=== PATIENT | female | born 1950 | race Caucasian/White ===

== ENCOUNTER 2020-03-26 01:17 | Emergency (ER) | payer MEDICARE, SELFPAY ==
--- NOTE | ~2020-03-26 | CT_ITS ---
EXAMINATION: CT chest abdomen pelvis w con EXAM DATE: 03/26/2020 02:59 INDICATION: chest wall pain, status post fall down stairs . TECHNIQUE: Spiral CT of the chest, abdomen and pelvis was performed following intravenous injection o f 100 mL Omnipaque 350. Axial, coronal and sagittal images were reviewed. Coronal maximum intensity pixel images of chest reviewed. The dose-length product (DLP) for this examination was 1781.79 mGy- cm. The exposure was tailored according to patient size (auto mA exposure control), and iterative re construction (ASIR) was used as additional dose reduction technique. There is no prior study for com alysia. FINDINGS: CHEST: There are acute left 4th through 9th rib fractures anterolaterally. There is a 4 mm left upper lobe nodule; one-year follow-up chest CT recommended. Linear bibasilar subsegmental atelectasis. The re is mild emphysema. There are no pleural or pericardial effusions. Tracheobronchial tree is paten t. There is no mediastinal, hilar or axillary lymphadenopathy. There is no pneumothorax. Heart normal in size. There is mild to moderate coronary arterial calcification, arterial sclerosis. ABDOMEN PELVIS: There is hepatic steatosis without suspicious focal lesion identified. Spleen, adrena l glands, pancreas are unremarkable. Gallbladder is unremarkable. No biliary obstruction. Portal a nd splenic veins are patent. Kidneys enhance symmetrically. There is no hydronephrosis. Bilateral r enal cysts largest on the right at 4.7 cm. The uterus is anteverted and morphologically normal. Th e bladder is unremarkable. There is no retroperitoneal or pelvic lymphadenopathy. Evidence of fat contusion overlying the left gluteal muscles. There is moderate sigmoid colonic diverticulosis. There is no adjacent inflammatory change to sugges t diverticulitis. The appendix is not positively visualized. There is no pericecal inflammatory boland ge to suggest appendicitis. The stomach and small bowel are unremarkable. There is expected amount of colonic stool. No free intraperitoneal gas. There are no osteoblastic or osteolytic lesions id entified. IMPRESSION: 1. Left 4th-9th acute nondisplaced rib fractures. 2. Moderate sigmoid diverticulosis. 3. Left upper lobe 4 mm nodule; consider one-year follow-up chest CT. 4. Bibasilar subsegmental atelectasis. 5. Mild emphysema. Reviewed, dictated and finalized at location B. TAGE CONSULTANT
--- NOTE | ~2020-03-26 | CT_ITS ---
EXAMINATION: CT brain wo con, CT cervical spine wo con EXAM DATE: 03/26/2020 02:58 INDICATION: Head injury. TECHNIQUE: Spiral CT of the head was performed without contrast. Axial, coronal and sagittal images were reviewed. Spiral CT of the cervical spine was performed without contrast. Axial images were rev iewed. Coronal and sagittal reformatted images were also reviewed. The dose-length product (DLP) fo r this examination was 605.33 (accession [id number]), 470.67 (accession [id number]) mGy-cm. The exposure was tailored according to patient size, and iterative reconstruction (ASIR) was used as additional dose reduction technique. There is no prior study for comparison. FINDINGS: HEAD CT: There is no acute intraparenchymal hemorrhage. No evidence of intraparenchymal brain mass l esion. No evidence of acute infarction. There is mild periventricular and subcortical hypodensity, n onspecific but probably related to small vessel ischemic disease. There is mild prominence of the s ulci and ventricles related to cerebral atrophy. There is intracranial carotid arteriosclerosis. There is no mass effect or midline shift. There is no obstructive hydrocephalus suspected. There are no extra-axial collections. There are no acute calvarial fractures. Patient has had bilateral ocul ar lens surgery. The visualized sinuses and mastoid air cells are well aerated. CERVICAL CT: Mild to moderate cervical spondylosis. There is no evidence of acute cervical fracture. The odontoid process is intact. Pre-dens space is normal. Prevertebral soft tissue is normal. The re are no soft tissue abnormalities identified. There is no disc space widening or traumatic vertebr al body subluxation suspected. A detailed level by level evaluation of spondylosis can be added as addendum if requested. IMPRESSION: 1. No acute intracranial findings or cervical fracture. Reviewed, dictated and finalized at location B. CAMP IMPRESSION: 1. No acute intracranial findings or cervical fracture.
[2020-03-26 01:26] VITALS: BP 172/99; PULSE 101; RESP 16; TEMP 36.4; O2SAT 95
[2020-03-26 02:03] LABS: Basophils Absolute Auto 0.1 K/mm3 (0.0-0.1); Basophils Percent Auto 0.7 % (0.2-1.2); Eosinophils Absolute Auto 0.2 K/mm3 (0-0.3); Eosinophils Percent Auto 1.5 % (0-4.4); Hemoglobin 12.9 g/dL (12.0-15.0); Immature Granulocyte Percent A 0.9 % (0-0.5); Lymphocytes Absolute Auto 2.21 K/mm3 (0.9-3.2); Lymphocytes Percent Auto 19.3 % (18.3-44.2); Mean Corpuscular HGB Conc 31.5 g/dl (32-36); Mean Corpuscular Hemoglobin 27.3 pg (26-34); Mean Corpuscular Volume 86.9 fl (80-100); Mean Platelet Volume 9.1 fl (7.4-10.4); Monocytes Absolute Auto 1.1 K/mm3 (0.1-0.6); Monocytes Percent Auto 9.5 % (2.6-8.5); Neutrophils Absolute Auto 7.8 K/mm3 (1.3-6.7); Neutrophils Percent Auto 68.1 % (45.5-73.1); Platelet Count Result 276 k/mm3 (150-375); Red Blood Count 4.72 M/mm3 (4.2-5.4); Red Cell Distribution Width 14.3 % (11.5-14.5); White Blood Count 11.4 K/mm3 (4.5-10.0)
[2020-03-26 02:15] LABS: Alanine Aminotransferase 28 U/L (4-35); Albumin Level 4.2 g/dL (3.5-5.1); Alkaline Phosphatase 73 U/L (38-126); Anion Gap 10 mmol/L (8-16); Aspartate Amino Transferase 33 U/L (14-36); Bilirubin,Total 0.3 mg/dL (0.2-1.3); Blood Urea Nitrogen 22 mg/dL (7-17); Calcium 9.3 mg/dL (8.4-10.2); Carbon Dioxide 28 mmol/L (22-30); Chloride 100 mmol/L (98-107); Estimated CRCL calculation 68 ml/min; Estimated Glomerular Filt Rate > 60; Glucose 218 mg/dL (65-105); Potassium 3.8 mmol/L (3.4-5.0); Sodium 138 mmol/L (137-145)
--- NOTE | 2020-03-26 02:52 | ED.GENADULT ---
HPI - General Adult General Chief complaint: Fall Stated complaint: fall down 5-6 steps Time Seen by Provider: 03/26/20 01:37 History of Present Illness HPI narrative: Patient is a 69-year-old female who presents to emergency department chief complaint of head injury. The patient reports she fell down some steps and struck her head. The patient is unsure of how long she had loss of consciousness reports that she was confused afterwards and called her son and spoke with him while she was talking with him she slowly regained her normal mental status and now just complains of a headache and feels a little foggy afterwards. Patient states that she has pain in her left anterior and posterior chest wall from where she struck the steps that she fell backwards down the steps. Patient reports she has a knot in the occipital region of her scalp. Related Data Home Medications Medication Instructions Recorded Confirmed metformin 500 mg tablet 500 mg PO BID 02/11/19 02/11/19 fluticasone 100 mcg-salmeterol 50 1 puff INHALATION Q12H 02/14/19 02/14/19 mcg/dose blistr powdr for inhalation cinnamon bark 500 mg capsule 500 mg PO DAILY 02/21/19 fenugreek seed extract 500 mg mg PO 02/21/19 capsule omega-3 fatty acids-fish oil 360 1 cap PO DAILY 02/21/19 mg-1,200 mg capsule Allergies Allergy/AdvReac Type Severity Reaction Status Date / Time aspirin Allergy Unknown unknown Verified 06/03/19 11:03 Penicillins Allergy Unknown unknown Verified 06/03/19 11:03 Sulfa (Sulfonamide Allergy Unknown unknown Verified 06/03/19 11:03 Antibiotics) Review of Systems Review of Systems: Narrative: A 10 system review of systems was completed on the patient and is negative except for what is stated in the HPI. Nursing and ancillary documentation was reviewed. [facility] Past Medical History Medical History Anxiety and depression Arthritis Asthma Diabetes Hypertension Vision loss reading glasses Surgical History Surgical History H/O section H/O toe surgery bilateral hammer toes (2009) Family History Family History Other Carcinoma of colon Cerebrovascular accident Depression Family history of Alzheimer's disease Family history of alcoholism Family history of cardiovascular disease Family history of migraine headaches Social History Social History Smoking status: Never smoker Second hand tobacco smoke exposure: No Alcohol intake: never Substance use: never Additional occupation/education comments: [employer] Gender identity (if verbalized by the patient): Female Spiritual care concerns: No Exam Narrative: Exam Narrative: GENERAL: Well-appearing, well-nourished, and in no acute distress. HEAD: Normocephalic, atraumatic. There is a contusion present in the occipital region of the scalp EYES: PERRLA and EOMI. ENT: Nares clear, no rhinorrhea or epistaxis. Mucous membranes moist. NECK: Supple. CHEST: Clear to auscultation. No respiratory distress. There is tenderness to palpation in the left anterior and posterior chest wall HEART: Regular rate and rhythm. No murmur heard. Normal peripheral pulses. ABDOMEN: Soft, nontender, nondistended, normal active bowel sounds. EXTREMITIES: Normal range of motion. No edema. SKIN: Warm, dry, no rash. NEURO: No focal deficits. Alert and oriented x3. PSYCH: Normal mood and affect. Course Course Emergency Course: Due to the mechanism of injury the patient underwent CT head CT C-spine and CT chest abdomen pelvis. The CT head showed no evidence of acute intracranial pathology CT C-spine showed no evidence of cervical spine fracture. CT chest showed evidence of fractures of
[2020-03-26] MEDS: ONDANSETRON INJ 4 MG/2 ML VIAL IV PUSH (03:08)
[2020-03-26] MEDS: HYDROcodone/acetaminophen (*CRX) 5-325 MG TABLET 2 TAB PO (03:44)
[2020-03-26 04:01] VITALS: BP 148/82; PULSE 68; RESP 16; O2SAT 99
== END 2020-03-26 04:02 | disposition home or self-care (01) ==
PROVIDERS: Emergency Provider Emergency Medicine; PCP Family Medicine
DX: S06.0X9A Concussion with loss of consciousness of unspecified duration, initial encounter (principal); S22.42XA Multiple fractures of ribs, left side, initial encounter for closed fracture; S30.0XXA Contusion of lower back and pelvis, initial encounter; M19.90 Unspecified osteoarthritis, unspecified site; J45.909 Unspecified asthma, uncomplicated; E11.9 Type 2 diabetes mellitus without complications; I10 Essential (primary) hypertension; Z79.84 Long term (current) use of oral hypoglycemic drugs; W10.9XXA Fall (on) (from) unspecified stairs and steps, initial encounter
CPT/HCPCS: 36415; 70450; 71260; 72125; 74177; 80053; 85025; 96374; 99284; A9270; J2405; Q9967

== ENCOUNTER 2022-08-01 07:56 | Outpatient (CLI) | payer MEDICARE, SELFPAY ==
[2022-08-01 09:29] LABS: Basophils Absolute Auto 0.1 K/mm3 (0.0-0.1); Basophils Percent Auto 0.7 % (0.2-1.2); Eosinophils Absolute Auto 0.3 K/mm3 (0-0.3); Eosinophils Percent Auto 2.8 % (0-4.4); Hematocrit 41.7 % (37.0-47.0); Hemoglobin 13.4 g/dL (12.0-15.0); Immature Granulocyte Absolute 0.03 K/mm3 (0.00-0.031); Immature Granulocyte Percent A 0.3 % (0-0.5); Lymphocytes Absolute Auto 2.99 K/mm3 (0.9-3.2); Lymphocytes Percent Auto 29.6 % (18.3-44.2); Mean Corpuscular HGB Conc 32.1 g/dl (32-36); Mean Corpuscular Hemoglobin 27.7 pg (26-34); Mean Corpuscular Volume 86.3 fl (80-100); Mean Platelet Volume 8.9 fl (7.4-10.4); Monocytes Absolute Auto 0.9 K/mm3 (0.1-0.6); Monocytes Percent Auto 9.3 % (2.6-8.5); Neutrophils Absolute Auto 5.8 K/mm3 (1.3-6.7); Neutrophils Percent Auto 57.3 % (45.5-73.1); Platelet Count Result 306 k/mm3 (150-375); Red Blood Count 4.83 M/mm3 (4.2-5.4); Red Cell Distribution Width 14.1 % (11.5-14.5); White Blood Count 10.1 K/mm3 (4.5-10.0)
[2022-08-01 09:43] LABS: Urine Cotinine NEGATIVE
[2022-08-01 09:43] LABS: Albumin Level 4.8 g/dL (3.5-5.1); Anion Gap 9 mmol/L (8-16); Blood Urea Nitrogen 20 mg/dL (7-17); Calcium 9.2 mg/dL (8.4-10.2); Carbon Dioxide 29 mmol/L (22-30); Chloride 100 mmol/L (98-107); Estimated Glomerular Filt Rate > 60; Glucose 170 mg/dL (65-110); Potassium 4.2 mmol/L (3.4-5.0); Sodium 138 mmol/L (137-145)
[2022-08-01 10:01] LABS: Hemoglobin A1C 6.9 % (<5.7)
== END 2022-08-01 07:57 | disposition home or self-care (01) ==
LOC: ANHSURGERY 08:02
PROVIDERS: PCP Family Medicine; Visit Provider Orthopaedic Surgery
DX: M17.0 Bilateral primary osteoarthritis of knee (principal); Z01.818 Encounter for other preprocedural examination
CPT/HCPCS: 80048; 80307; 82040; 83036; 85025; 87081

== ENCOUNTER 2022-08-27 01:18 | Day surgery (SDC) | payer MEDICARE, SELFPAY ==
[2022-08-01 07:56] VITALS: BP 123/63; PULSE 79; RESP 16; TEMP 37.3; O2SAT 97
[2022-08-01 08:19] VITALS: BMI 34.4
--- NOTE | 2022-08-01 08:30 | PC.NURSE ---
Report to the Outpatient Waiting Room, entrance under the green pavilion located off [facility], at time _9:30AM on date __08/27/22 . Planned Procedure Time: _11:30AM . Time changes happen often and if your time is changed the preop area will call you the afternoon before. - You and your visitor will be asked to self-screen and do not enter if you have any COVID symptoms. - A mask is optional within the hospital at this time. Patients may have clear liquids (water, carbonated beverages, clear teas, apple juice) until 3 hours prior to surgery with a maximum of 20 ounces. - No food from midnight until time of surgery Take the following medications with a SIP of water the morning of surgery: __ESCITALOPRAM DO NOT STOP ANY OF YOUR OTHER PRESCRIPTION MEDICATIONS PRIOR TO SURGERY ?EXCEPT THE FOLLOWING Medications to discontinue per physician __HOLD ALL VITAMINS/SUPPLEMENTS 7 DAYS PRE-OP PER DR AVINA Date to take last dose____08/20/22 Please no make-up, nail [place] islander, hairspray, perfume, deodorant, or body powder the day of surgery. No jewelry (including any body piercings) or valuables the day of surgery, leave them at home. Please take a shower or bath the night before, or the morning of, surgery with an antibacterial soap. Wear comfortable, loose fitting clothing. Children are encouraged to wear pajamas. - Jewelry must be removed prior to entering the operating room. Rings and piercings that are not removed may be cut off. - The hospital will not accept responsibility for valuables. - Please leave all valuables, including medications, at home the day of surgery. If you are going home after surgery, a licensed sprinkler driver must drive you home. - NO public transportation without another adult if you receive anesthesia. - We recommend that an adult stay with you for 24 hours following discharge. - We also recommend that you do not drive, make important decision, drink alcoholic beverages, or take any drugs that were not prescribed by your health care provider for at least 24 hours after your discharge time. Follow any additional instructions given to you from your surgeon. HIBICLENS SHOWER PER DR AVINA If you or anyone in your household have experienced Covid symptoms in the past week, please notify your surgeon or the nurse liaison at the phone number below for possible testing. Telephone instructions given to ___PATIENT and asked if any additional questions and then verbalized understanding. Patient advised to call surgeon office or pre surgery nurse liaison [phone] if any additional questions.
--- NOTE | 2022-08-25 16:51 | PM.IMHP ---
H&P: HPI History of Present Illness Date/Time: 08/25/22 16:51 Chief Complaint: Right knee DJD Narrative: 71-year-old female who presents today for right total knee arthroplasty with cortisone injection in the left knee. Patient has been having symptoms in both of her knees for years. She has severe lateral compartment osteoarthritis in both knees. She has flexion contractures of both knees as well. She is having significant symptoms at daily basis. Pain in her knees affecting her daily lifestyle and limiting her activities. Patient has tried cortisone injections in the past with minimal improvement of her symptoms. At this point patient feels she is ready to proceed with total knee arthroplasty with a continue nonsurgical treatment. Review of Systems Review of Systems: All systems reviewed & are unremarkable except as noted in HPI and below PMFSH Past Medical History Medical History Anxiety and depression Arthritis Asthma Diabetes Hypertension Vision loss reading glasses Surgical History Surgical History H/O section H/O toe surgery bilateral hammer toes (2009) Family History Family History Other Carcinoma of colon Cerebrovascular accident Depression Family history of Alzheimer's disease Family history of alcoholism Family history of cardiovascular disease Family history of migraine headaches Social History Social History Smoking status: Never smoker Second hand tobacco smoke exposure: No Alcohol intake: never Substance use: never Substance use type: does not use Lack of Transportation: No Lack of Food: Never True Current Housing: I Have Housing Concerned About Future Housing: No Difficulty Paying Gas/Electric Bills: No Difficulty Paying for Meds: YES Currently Unemployed: No Education: Trade/Vocational Certificate Living arrangements: alone Occupation/Education: occupation Additional occupation/education comments: [employer] Gender identity (if verbalized by the patient): Female Sexual Orientation (if Verbalized by the Patient): Straight or Heterosexual Spiritual care concerns: No Agree to blood products: Yes Meds Home Medications and Allergies Home Medications Medication Instructions Recorded Confirmed Type metformin 500 mg tablet 500 mg PO BID 02/11/19 08/13/22 History cinnamon bark 500 mg capsule 500 mg PO BID 02/21/19 08/13/22 History (Cinnamon) omega-3 fatty acids-fish oil 360 1 cap PO BID 02/21/19 08/13/22 History mg-1,200 mg capsule (Fish Oil) ergocalciferol (vitamin D2) 1,250 See Rx Instructions .Route 05/28/22 08/13/22 Rx mcg (50,000 unit) capsule .COMPLEX #12 caps ascorbic acid (vitamin C) 100 mg 100 mg PO DAILY 08/01/22 08/13/22 History tablet atorvastatin 20 mg tablet 20 mg PO EVERY OTHER DAY 08/01/22 08/13/22 History cyanocobalamin (vitamin B-12) 500 500 mcg PO DAILY 08/01/22 08/13/22 History mcg tablet escitalopram oxalate 20 mg tablet 20 mg PO QAM 08/01/22 08/13/22 History lisinopril 20 mg tablet 20 mg PO QAM 08/01/22 08/13/22 History mirtazapine 15 mg tablet 15 mg PO HS 08/01/22 08/13/22 History semaglutide 0.25 mg or 0.5 mg (2 0.5 mg subcut WEEKLY 08/01/22 08/13/22 History mg/1.5 mL) subcutaneous pen injector (Ozempic) Allergies Allergy/AdvReac Type Severity Reaction Status Date / Time Penicillins Allergy Unknown unknown Verified 08/12/22 13:41 Sulfa (Sulfonamide Allergy Unknown unknown Verified 08/12/22 13:41 Antibiotics) Exam Narrative: 71-year-old female very alert. She is 5 ft 4 and 205 lb her BMI is 35.1. Her right knee range motion is from 15-125 degrees. She has mild effusion right knee. Normal stability in the knee.
[2022-08-27] VITALS (12 sets, daily range): BP systolic 108–147; BP diastolic 52–82; PULSE 73–88; RESP 11–18; TEMP 36.4–36.7; O2SAT 92–97
--- NOTE | ~2022-08-27 | XR_ITS ---
EXAM: [id number] DATE: 08/27/2022 17:11 HISTORY: RT TOTAL KNEE . COMPARISON: None available. FINDINGS: Interval right knee total arthroplasty. Components in good position. Intra-articular gas. Mild scattered vascular calcifications No unexpected radiopaque foreign body. IMPRESSION: Expected postsurgical changes, with no radiographic evidence of procedure or hardware rel ated complication. Reviewed, dictated and finalized at location K. IMPRESSION: Expected postsurgical changes, with no radiographic evidence of pro cedure or hardware related complication.
[2022-08-27] MEDS: LACTATED RINGERS 1,000 ML 30 ML IV CONT ×2 (10:30→17:00)
[2022-08-27] MEDS: VANCOMYCIN 1,250 MG/NS 250 ML BAG 166.67 MG IVPB (10:45)
[2022-08-27] MEDS: ACETAMINOPHEN 500 MG TABLET 1000 MG PO ×2 (11:00→18:36)
[2022-08-27] MEDS: TRANEXAMIC ACID 1,000MG/ISO100 1,000 MG/100 ML BAG 200 MG IVPB (11:00)
[2022-08-27 11:06] LABS: Glucose Point of Care 142 mg/dl (65-105)
--- NOTE | 2022-08-27 11:14 | WPDHPUPDATE1 ---
History and Physical Update Update Date/Time: 08/27/22 11:14 History and Physical has been reviewed, including an updated exam of the patient. There are NO changes in the patient's condition. Risks, benefits, and alternatives have been discussed and questions answered. Patient agrees to proceed with procedure.
--- NOTE | 2022-08-27 11:37 | WPDANESEPPF ---
Anes - Initial Pre Proc Eval Procedure: Operation Date: 08/27/22 11:30 Proposed Procedures p Right Total Knee Arthroplasty, Left Knee Cortisone Injection - Chao Peres MD Date/Time: 08/27/22 11:37 Surgeon: Chao Peres MD Pre Op Diagnosis: oa bilateral knees Patient Data Age: 71 Gender: F Height: 1.62 m Weight: 91.1 kg Last Vital Signs Temp 97.6 F 08/27/22 11:17 Pulse 88 08/27/22 11:17 Resp 16 08/27/22 11:17 BP 147/82 H 08/27/22 11:17 Pulse Ox 96 08/27/22 11:17 O2 Del Method Room Air 08/27/22 11:17 Allergies Allergy/AdvReac Type Severity Reaction Status Date / Time Penicillins Allergy Unknown unknown Verified 08/27/22 11:15 Sulfa (Sulfonamide Allergy Unknown unknown Verified 08/27/22 11:15 Antibiotics) Home Medications Medication Instructions Recorded Confirmed Type metformin 500 mg tablet 500 mg PO BID 02/11/19 08/13/22 History cinnamon bark 500 mg capsule 500 mg PO BID 02/21/19 08/13/22 History (Cinnamon) omega-3 fatty acids-fish oil 360 1 cap PO BID 02/21/19 08/13/22 History mg-1,200 mg capsule (Fish Oil) ergocalciferol (vitamin D2) 1,250 See Rx Instructions .Route 05/28/22 08/13/22 Rx mcg (50,000 unit) capsule .COMPLEX #12 caps ascorbic acid (vitamin C) 100 mg 100 mg PO DAILY 08/01/22 08/13/22 History tablet atorvastatin 20 mg tablet 20 mg PO EVERY OTHER DAY 08/01/22 08/13/22 History cyanocobalamin (vitamin B-12) 500 500 mcg PO DAILY 08/01/22 08/13/22 History mcg tablet escitalopram oxalate 20 mg tablet 20 mg PO QAM 08/01/22 08/27/22 History lisinopril 20 mg tablet 20 mg PO QAM 08/01/22 08/27/22 History mirtazapine 15 mg tablet 15 mg PO HS 08/01/22 08/13/22 History semaglutide 0.25 mg or 0.5 mg (2 0.5 mg subcut WEEKLY 08/01/22 08/13/22 History mg/1.5 mL) subcutaneous pen injector (Ozempic) Laboratory Tests 08/27/22 10:58 POC Capillary Glucose 142 H mg/dl (65-105) Patient hx anesthesia problems: none Family hx anesthesia problems: none Results Review: All pre-operative results and documents have been reviewed as part of the pre-operative evaluation. PMFSH Past Medical History Medical History Anxiety and depression Arthritis Asthma Diabetes Hypertension Vision loss reading glasses Surgical History Surgical History H/O section H/O toe surgery bilateral hammer toes (2009) Family History Family History Other Carcinoma of colon Cerebrovascular accident Depression Family history of Alzheimer's disease Family history of alcoholism Family history of cardiovascular disease Family history of migraine headaches Social History Social History Smoking status: Never smoker Second hand tobacco smoke exposure: No Alcohol intake: never Substance use: never Substance use type: does not use Lack of Transportation: No Lack of Food: Never True Current Housing: I Have Housing Concerned About Future Housing: No Difficulty Paying Gas/Electric Bills: No Difficulty Paying for Meds: YES Currently Unemployed: No Education: Trade/Vocational Certificate Living arrangements: alone Occupation/Education: occupation Additional occupation/education comments: [employer] Gender identity (if verbalized by the patient): Female Sexual Orientation (if Verbalized by the Patient): Straight or Heterosexual Spiritual care concerns: No Agree to blood products: Yes Anes - Eval Final PreProcedure Day of Procedure 08/27/22 11:37 Patient weight: obese Heart: regular rate and rhythm Lungs: clear to auscultation Airway: Mallampati scale class III Neurological: alert and oriented Last oral intake: >/= 8 hours ASA classification: II
[2022-08-27] MEDS: ceFAZolin 2 GM/D5W 50 ML 2 GM/50 ML BAG IVPB (12:04)
[2022-08-27] MEDS: ceFAZolin SODIUM 1 GM VIAL 3 GM IRRIGATION (12:43)
[2022-08-27] MEDS: GENTAMICIN BONE CEMENT REFOBACIN 1 EACH TOPICAL (12:44)
[2022-08-27] MEDS: methylPREDNISolone ACETATE 80 MG/ML VIAL I-ARTICULR (12:45)
[2022-08-27] MEDS: TRANEXAMIC ACID 1,000 MG/10 ML AMPUL 1000 MG IV PUSH (15:19)
[2022-08-27] MEDS: ceFAZolin SODIUM 1 GM VIAL 2 GM IV PUSH (15:20)
--- NOTE | 2022-08-27 17:07 | PM.OP ---
Procedure Note - Brief Procedure Note - Brief Date of procedure: 08/27/22 oa bilateral knees Procedure performed: Right total knee arthroplasty Surgeon: EFRA Shen Description of procedure: 71-year-old female who underwent right total knee arthroplasty on 08/27. I was involved in the procedure including positioning patient on OR table as well as 1st assisting to the time of surgery and getting patient to recovery. Total time spent was 4 hours
--- NOTE | 2022-08-27 17:11 | W.PM.PROC2 ---
Procedure Note - Detailed Date of Procedure 08/27/22 Pre-op Diagnosis oa bilateral knees Post-op Diagnosis Same Procedure Performed Cortisone injection left knee, constrained right total knee arthroplasty Surgeon Chao Peres MD Tax Assistant Jono Anesthesia General Description of Procedure Patient was brought to the operating room and general anesthesia was administered. She received 2 g of Ancef weight based vancomycin 1 g of tranexamic acid preoperatively. The left knee was prepped with ChloraPrep and 80 mg of Depo-Medrol and 3 cc of 1% lidocaine injected. The left knee was prepped draped usual fashion. Even under deep anesthesia she continued to demonstrate a 15 degree flexion contracture and valgus deformity that did not correct. With her obesity BMI of 35.4 and her contracture. This added significant difficulty to the procedure adding an estimated 90 minutes of surgical time. Limb was exsanguinated and tourniquet elevated to 300 mmHg. An 8 in longitudinal midline incision was made over the anterior aspect of the right knee in the standard parapatellar arthrotomy medialized. Infrapatellar and suprapatellar fat pads were excised a quadriceps synovectomy carried out. The patella had mild chondromalacia. My initial plan was to leave it un resurfaced. A a guide kaushal was inserted down the femoral canal after aspiration of canal contents using the 5 degree valgus cutting bushing, 10 mm of bone removed from the distal femur medially. This removed about 2 mm from the lateral femoral condyle. Alignment was confirmed. Next the tibia was cut perpendicular to the axis of the tibia. Initial cut was made conservatively and did cut just under the low point of the defect in the posterolateral tibial plateau but this left the posterior 1/3 of the medial tibial plateau still covered with cartilage. An additional 3 mm of bone was removed which was successful in getting under the articular cartilage medially and laterally. Meniscal remnants were excised the PCL recessed. The femoral sizing guide was applied at 6? of external rotation which matched Whitesides line well. The distal femur was cut with the 67.5 vanguard cutting guide which gave a flush cut the anterior cortex and was about a mm and half wider than the distal femur but I felt this would be acceptable particularly as we anticipated additional distal femoral bone removal. We trialed and the 11 was appropriate at 90? of flexion with respect to anterior drawer stability but we lacked about 20? of extension still. The tibia was sized to a 71 placed at proper rotation and punched. In extension we pie crusted the ITB band from the lateral collateral ligament to the lateral margin of the patellar tendon. Complete posterolateral capsular release was performed adjacent to the tibia. Central posterior capsular release was performed the small remaining posterior femoral osteophytes removed. We trialed again and we still lacked at least 15? of extension with no play laterally to varus stress and 5 mm medially to valgus stress. It was clear that we would therefore have greater than 5 mm play medially which would be unacceptable and this would only be increased by the additional distal femoral bone removed which was in a sedated assessed sedated at this time. I did not wish to release the popliteus and lateral collateral ligament which would increase her risk of peroneal nerve palsy due to over lengthening the lateral side particularly with her pre-existing flexion contracture. We therefore made the decision to proceed with constrained system and we punched the tibia for the 80 mm x 10 mm finned stem and the 71 modular tray and finned stem sat flush. An additional 2 mm of bone was removed the distal femur. Chamfer cuts revisited. A more aggressive posterior lateral and posteromedial capsule release was performed all the way out to the lateral head and medial head of the gland gastrocnemius tendon and the fa
[2022-08-27 17:20] LABS: Glucose Point of Care 231 mg/dl (65-105)
--- NOTE | 2022-08-27 17:28 | SUR.PHASEI ---
1728 - Juan Francisco Fritz (MIGRATION AGENT) notified of BS 231. No new orders at this time.
[2022-08-27] MEDS: SENNA/DOCUSATE SODIUM TABLET 2 TAB PO (18:36)
[2022-08-27] MEDS: oxyCODONE HCL (*CRX) 5 MG TAB IR PO ×2 (18:37→21:52)
--- NOTE | 2022-08-27 18:37 | ADMGEN ---
This patient, Avni Liang, was admitted to Medical Room 253-01. Patient/family oriented to hospital policies and general routines including ID bracelet, bed and alarms, visiting hours, pain management, procedures, bathroom and other care routines, personal items, smoking policy, room service/diet, and visiting hours. Information on how to activate the Rapid Response Team has been discussed. Patient/Family are encouraged to report perceived risks to care and to ask questions if they do not understand what they are told or what they should do.
[2022-08-27] MEDS: SODIUM CHLORIDE 0.9% IV 1,000 ML 125 ML IV CONT (18:38)
[2022-08-27] MEDS: ceFAZolin 1 GM/NS 50 ML 1 GM/50 ML BAG IVPB (20:11)
[2022-08-27] MEDS: MIRTAZAPINE 15 MG TABLET PO (21:52)
[2022-08-27] MEDS: FAMOTIDINE 20 MG TABLET PO (21:52)
[2022-08-27] MEDS: KETOROLAC 15 MG/ML VIAL (*BKC) IV PUSH (22:56)
[2022-08-27] MEDS: VANCOMYCIN 1,000 MG/NS 250 ML 1,000 MG/250 ML BAG 250 MG IVPB (22:57)
[2022-08-28 00:09] LABS: Glucose Point of Care 256 mg/dl (65-105)
[2022-08-28] MEDS: ACETAMINOPHEN 500 MG TABLET 1000 MG PO ×3 (01:06→11:53)
[2022-08-28] MEDS: oxyCODONE HCL (*CRX) 5 MG TAB IR PO ×4 (01:06→13:15)
[2022-08-28 01:08] VITALS: BP 113/63; PULSE 77; RESP 16; TEMP 36.7; O2SAT 93
[2022-08-28] MEDS: ceFAZolin 1 GM/NS 50 ML 1 GM/50 ML BAG IVPB ×2 (04:23→11:53)
[2022-08-28 05:19] LABS: Basophils Percent Auto 0.1 % (0.2-1.2); Hematocrit 29.9 % (37.0-47.0); Hemoglobin 9.3 g/dL (12.0-15.0); Immature Granulocyte Absolute 0.09 K/mm3 (0.00-0.031); Immature Granulocyte Percent A 0.6 % (0-0.5); Lymphocytes Absolute Auto 1.01 K/mm3 (0.9-3.2); Lymphocytes Percent Auto 6.9 % (18.3-44.2); Mean Corpuscular HGB Conc 31.1 g/dl (32-36); Mean Corpuscular Hemoglobin 27.2 pg (26-34); Mean Corpuscular Volume 87.4 fl (80-100); Mean Platelet Volume 8.9 fl (7.4-10.4); Monocytes Absolute Auto 1.1 K/mm3 (0.1-0.6); Monocytes Percent Auto 7.7 % (2.6-8.5); Neutrophils Absolute Auto 12.4 K/mm3 (1.3-6.7); Neutrophils Percent Auto 84.7 % (45.5-73.1); Platelet Count Result 264 k/mm3 (150-375); Red Blood Count 3.42 M/mm3 (4.2-5.4); Red Cell Distribution Width 14.6 % (11.5-14.5); White Blood Count 14.6 K/mm3 (4.5-10.0)
[2022-08-28 05:42] LABS: Anion Gap 7 mmol/L (8-16); Blood Urea Nitrogen 24 mg/dL (7-17); Calcium 7.5 mg/dL (8.4-10.2); Carbon Dioxide 26 mmol/L (22-30); Chloride 99 mmol/L (98-107); Estimated CRCL calculation 56 ml/min; Estimated Glomerular Filt Rate > 60; Glucose 267 mg/dL (65-110); Potassium 4.8 mmol/L (3.4-5.0); Sodium 132 mmol/L (137-145)
[2022-08-28 06:00] VITALS: BP 100/56; PULSE 76; RESP 16; TEMP 36.5; O2SAT 93; O2SAT 96
--- NOTE | 2022-08-28 07:51 | PM.PNORT ---
Subjective Subjective Date/Time Seen: 08/28/22 07:51 Interval history: Postop day 1 patient is alert. Afebrile vital signs are stable. Dressing is dry and intact. She has been up to the restroom overnight. Neurovascularly she is intact. She is able do a straight leg raise in the bed this morning. Minimal swelling in the knee. Pain overall is well controlled. Morning labs are noted. Plan will be to have the patient work with therapy this morning and again this afternoon and once IV antibiotics have been completed she will be discharged home. Objective Data Vital Signs Vital Signs: Vital Signs - 24 hr 08/27/22 11:17 08/27/22 17:00 08/27/22 17:15 Temperature 36.4 C 36.4 C Pulse Rate 88 87 83 Respiratory Rate 16 11 L 12 Blood Pressure 147/82 H 116/52 L 124/62 Pulse Oximetry 96 92 95 Oxygen Delivery Room Air Simple Face Mask Simple Face Mask Oxygen Flow Rate 10 10 08/27/22 17:30 08/27/22 17:33 08/27/22 17:45 Temperature Pulse Rate 76 84 77 Respiratory Rate 12 12 13 Blood Pressure 127/55 L 126/57 L 127/57 L Pulse Oximetry 97 96 94 Oxygen Delivery Simple Face Mask Simple Face Mask Nasal Cannula Oxygen Flow Rate 10 10 4 08/27/22 18:00 08/27/22 18:25 08/27/22 18:40 Temperature 36.6 C 36.7 C Pulse Rate 83 75 73 Respiratory Rate 13 18 18 Blood Pressure 124/56 L 111/55 L 108/54 L Pulse Oximetry 93 92 94 Oxygen Delivery Nasal Cannula Oxygen Flow Rate 4 08/27/22 18:48 08/27/22 19:10 08/27/22 20:10 Temperature 36.6 C 36.7 C Pulse Rate 75 81 Respiratory Rate 18 17 Blood Pressure 118/58 L 130/56 L Pulse Oximetry 94 95 95 Oxygen Delivery Nasal Cannula Oxygen Flow Rate 4 08/27/22 20:00 08/28/22 01:08 08/28/22 06:00 Temperature 36.7 C Pulse Rate 77 Respiratory Rate 16 Blood Pressure 113/63 Pulse Oximetry 93 93 Oxygen Delivery Room Air Room Air Oxygen Flow Rate 08/28/22 06:00 Temperature 36.5 C Pulse Rate 76 Respiratory Rate 16 Blood Pressure 100/56 L Pulse Oximetry 96 Oxygen Delivery Oxygen Flow Rate Intake/Output Intake/Output: Intake & Output 08/25/22 08/26/22 08/27/22 08/28/22 23:59 23:59 23:59 23:59 Intake Total 650 1300 Output Total 500 Balance 150 1300 Meds/Results Medications: Active Medications Generic Name Dose Route Start Last Admin Trade Name Freq PRN Reason Stop Dose Admin Acetaminophen 1,000 mg 08/27/22 18:00 08/28/22 05:39 Acetaminophen 500 Mg Tablet PO 1,000 mg Q6H SARAH Administration Apixaban 2.5 mg 08/28/22 09:00 Apixaban 2.5 Mg Tablet PO 09/08/22 21:01 Q12HR SARAH Atorvastatin Calcium 20 mg 08/28/22 09:00 Atorvastatin 20 Mg Tablet PO Q48H SARAH Diphenhydramine HCl 25 mg 08/27/22 18:00 Diphenhydramine Hcl Inj 50 Mg/Ml Vial IV PUSH Q6H PRN Itching Doxycycline Hyclate 100 mg 08/28/22 10:00 Doxycycline Hyclate 100 Mg Tablet PO Q12HR SARAH Escitalopram Oxalate 20 mg 08/28/22 09:00 Escitalopram Oxalate 10 Mg Tablet PO QAM SARAH Famotidine 20 mg 08/27/22 21:00 08/27/22 21:52 Famotidine 20 Mg Tablet PO 20 mg Q12HR SARAH Administration Vancomycin HCl 1,000 mg in 250 mls @ 250 mls/hr 08/27/22 23:00 08/28/22 00:00 Vancomycin 1,000 Mg/Ns 250 Ml IVPB 08/28/22 11:59 Infused Q12H SARAH Infusion Cefazolin Sodium 1 gm in 50 mls @ 100 mls/hr 08/27/22 20:00 08/28/22 05:00 Ancef 1 Gm/Ns 50 Ml IVPB 08/28/22 12:29 Infused Q8H SARAH Infusion Magnesium Hydroxide 30 ml 08/27/22 18:00 Magnesium Hydroxide Susp 30 Ml Udc PO BID PRN Constipation Metformin HCl 500 mg 08/28/22 09:00 Metformin Hcl 500 Mg Tablet PO BID SARAH Mirtazapine 15 mg 08/27/22 21:00 08/27/22 21:52 Mirtazapine 15 Mg Tablet PO 15 mg HS SARAH Administration Miscellaneous Information 1 each 08/27/22 00:01 Med Rec Order Clarification XX 09/26/22 00:00 CLARIFY SARAH Naloxone HCl 0.1 mg 08/27/22 18:00 Naloxone Hcl 0.4 Mg/M
--- NOTE | 2022-08-28 07:55 | PM.DS ---
DS: Admitting Diagnosis Discharge Date 08/28 Admitting Diagnosis Right knee DJD DS: Discharge Diagnosis Discharge Diagnosis (1) Arthritis: Code(s): M19.90 - Unspecified osteoarthritis, unspecified site Status: Acute DS: Summary Hospital Course Hospital Course: 71-year-old female who underwent right total knee arthroplasty 08/27. Underwent the procedure without complications. Postoperatively she has been afebrile vital signs are stable. Patient's pain is well controlled with scheduled Tylenol as well as oxycodone 5 mg. We are also going to put her on meloxicam 7.5 mg daily she feels home. She will be on 2 week course of doxycycline. She is on Eliquis for DVT prophylaxis. She also go home on Senokot and MiraLax for constipation. Patient is outpatient therapy starting tomorrow. Patient was advised to keep leg elevated home prevent swelling in the knee but do exercises on her hourly basis. Patient was advised any questions or concerns she is to call the office otherwise we will see her at her appointed date. Time Spent with Patient Time attestation: Total time spent providing and/or coordinating discharge services: DS: Data Data Completed and Pending Labs on day of discharge: Labs from last 24 hours 08/28/22 08/27/22 08/27/22 05:01 22:06 17:17 WBC 14.6 H RBC 3.42 L Hgb 9.3 L D Hct 29.9 L MCV 87.4 MCH 27.2 MCHC 31.1 L RDW 14.6 H Plt Count 264 MPV 8.9 Immature Gran % (Auto) 0.6 H Neut % (Auto) 84.7 H Lymph % (Auto) 6.9 L [place] % (Auto) 7.7 Eos % (Auto) 0.0 Baso % (Auto) 0.1 L Lymph # (Auto) 1.01 [place] # (Auto) 1.1 H Eos # (Auto) 0.0 Baso # (Auto) 0.0 Abs Immat Gran (auto) 0.09 H Absolute Neuts (auto) 12.4 H Absolute Nucleated RBC 0.0 Nucleated RBC % 0.0 Sodium 132 L Potassium 4.8 Chloride 99 Carbon Dioxide 26 Anion Gap 7 L BUN 24 H Creatinine 0.90 Estim Creat Clear Calc 56 Estimated GFR > 60 Glucose 267 H POC Capillary Glucose 256 H 231 H Calcium 7.5 L Blood Type Antibody Screen 08/27/22 08/27/22 10:58 10:56 WBC RBC Hgb Hct MCV MCH MCHC RDW Plt Count MPV Immature Gran % (Auto) Neut % (Auto) Lymph % (Auto) [place] % (Auto) Eos % (Auto) Baso % (Auto) Lymph # (Auto) [place] # (Auto) Eos # (Auto) Baso # (Auto) Abs Immat Gran (auto) Absolute Neuts (auto) Absolute Nucleated RBC Nucleated RBC % Sodium Potassium Chloride Carbon Dioxide Anion Gap BUN Creatinine Estim Creat Clear Calc Estimated GFR Glucose POC Capillary Glucose 142 H Calcium Blood Type O Negative Antibody Screen Negative Discharge Plan Discharge Patient Disposition: Home, Self-Care Discharge Instructions: MILY AVINA M.D [facility], [place] [address] [address] POST-OPERATIVE DISCHARGE INSTRUCTIONS TOTAL KNEE ARTHROPLASTY 1. When resting, lie on back with leg elevated above heart to minimize swelling. Significant swelling could indicate a blood clot and if this occurs call the office (or go to the ER) to have a venous ultrasound. 2. Do exercise 5 times a day. 3. Do not sit with leg down except for meals. 4. Wound Care: Nursing will give additional dressings at discharge. Patient to change dressing at home 1 week from surgery, then maintain until seen in office. 5. May shower with dressing in place. 6. Follow weight bearing status instructions. IMPORTANT: Remember not to sit in the chair for more than 30 minutes at a time. As a rule, during the first 14 days after surgery, only sit in the chair to work on the chair knee bending stretch exercise, for meals or for use of the restroom. Sitting in the chair promotes significant swelling in the knee and leg which will make the knee stiff and more painful and which simulates having a
[2022-08-28 08:10] VITALS: BP 144/55; PULSE 88; RESP 18; TEMP 36.8; O2SAT 97
[2022-08-28] MEDS: polyethylene glycoL 3350 17 GM POWD.PACK PO (08:51)
[2022-08-28] MEDS: SENNA/DOCUSATE SODIUM TABLET 2 TAB PO (08:51)
[2022-08-28] MEDS: metFORMIN HCL 500 MG TABLET PO (08:51)
[2022-08-28] MEDS: ESCITALOPRAM OXALATE 10 MG TABLET 20 MG PO (08:51)
[2022-08-28] MEDS: APIXABAN 2.5 MG TABLET PO (08:51)
[2022-08-28] MEDS: ATORVASTATIN 20 MG TABLET PO (08:51)
[2022-08-28] MEDS: FAMOTIDINE 20 MG TABLET PO (08:52)
[2022-08-28] MEDS: DOXYCYCLINE HYCLATE 100 MG TABLET PO (09:54)
[2022-08-28] MEDS: VANCOMYCIN 1,000 MG/NS 250 ML 1,000 MG/250 ML BAG 250 MG IVPB (10:24)
--- NOTE | 2022-08-28 11:48 | WPDANESPN ---
Anes - Prog Note Post-Op Date/Time: 08/28/22 11:48 Cardiovascular status: normal Respiratory status: normal Airway patency: baseline Mental status: baseline Post-Op hydration status: normal Vital Signs: Last Vital Signs Temp 36.8 C 08/28/22 08:10 Pulse 88 08/28/22 08:10 Resp 18 08/28/22 08:10 BP 144/55 H 08/28/22 08:10 Pulse Ox 97 08/28/22 08:10 O2 Del Method Room Air 08/28/22 08:55 O2 Flow Rate 4 08/27/22 18:48 Pain Score (VAS): 3 I/O: Intake & Output 08/27/22 08/28/22 08/28/22 23:59 07:59 15:59 Intake Total 250 1300 440 Output Total 500 Balance -250 1300 440 Laboratory Tests 08/28/22 05:01 08/28/22 05:01 08/27/22 08/27/22 08/27/22 10:56 17:17 22:06 WBC RBC Hgb Hct MCV MCH MCHC RDW Plt Count MPV Immature Gran % (Auto) Neut % (Auto) Lymph % (Auto) [place] % (Auto) Eos % (Auto) Baso % (Auto) Lymph # (Auto) [place] # (Auto) Eos # (Auto) Baso # (Auto) Abs Immat Gran (auto) Absolute Neuts (auto) Absolute Nucleated RBC Nucleated RBC % Sodium Potassium Chloride Carbon Dioxide Anion Gap BUN Creatinine Estim Creat Clear Calc Estimated GFR Glucose POC Capillary Glucose 231 H 256 H Calcium Blood Type O Negative Antibody Screen Negative 08/28/22 05:01 WBC 14.6 H RBC 3.42 L Hgb 9.3 L D Hct 29.9 L MCV 87.4 MCH 27.2 MCHC 31.1 L RDW 14.6 H Plt Count 264 MPV 8.9 Immature Gran % (Auto) 0.6 H Neut % (Auto) 84.7 H Lymph % (Auto) 6.9 L [place] % (Auto) 7.7 Eos % (Auto) 0.0 Baso % (Auto) 0.1 L Lymph # (Auto) 1.01 [place] # (Auto) 1.1 H Eos # (Auto) 0.0 Baso # (Auto) 0.0 Abs Immat Gran (auto) 0.09 H Absolute Neuts (auto) 12.4 H Absolute Nucleated RBC 0.0 Nucleated RBC % 0.0 Sodium 132 L Potassium 4.8 Chloride 99 Carbon Dioxide 26 Anion Gap 7 L BUN 24 H Creatinine 0.90 Estim Creat Clear Calc 56 Estimated GFR > 60 Glucose 267 H POC Capillary Glucose Calcium 7.5 L Blood Type Antibody Screen Post-procedural complaints: none Patient Feedback: Patient satisfied with anesthetic care.
[2022-08-28 12:10] VITALS: BP 100/54; PULSE 2; RESP 18; TEMP 36.7; O2SAT 92
--- NOTE | 2022-08-28 13:25 | PM.IMCN ---
Assessment and Plan Assessment and plan (1) DJD (degenerative joint disease) of knee: Qualifiers: Osteoarthritis type: primary Laterality: bilateral Qualified Code(s): M17.0 - Bilateral primary osteoarthritis of knee Code(s): M17.10 - Unilateral primary osteoarthritis, unspecified knee Status: Acute Assessment and Plan: Avni Liang is a 71 year old female with history of severe OA of of knees and had failed convervative management with cortisone injection and pain management, without significant relief and patient was seen by her orthopedic surgeon and had total right knee arthoplasty, patient has history of DM and we have been consulted for medical management, patient denies any complaint of polyuria or polydipsia and her blood sugars a close to target, patient has no new complaint and clinically stable patient seen by orthopedic service today and patient will be discharged. (2) Diabetes: Code(s): E11.9 - Type 2 diabetes mellitus without complications Status: Acute Plan Patient remains clinically stable her blood sugar close to target will continue to monitor. HPI Data of Consult Consult date: 08/28/22 Requesting Physician: Chao Peres MD Primary Care Provider: Christina Colvin MD Consult Narrative Narrative: Avni Liang is a 71 year old female with history of severe OA of of knees and had failed convervative management with cortisone injection and pain management, without significant relief and patient was seen by her orthopedic surgeon and had total right knee arthoplasty, patient has history of DM and we have been consulted for medical management, patient denies any complaint of polyuria or polydipsia and her blood sugars a close to target, patient has no new complaint and clinically stable patient seen by orthopedic service today and patient will be discharged. Review of Systems Review of Systems: All systems reviewed & are unremarkable except as noted in HPI and below PMFSH Past Medical History Medical History Anxiety and depression Arthritis Asthma Diabetes Hypertension Vision loss reading glasses Surgical History Surgical History H/O section H/O toe surgery bilateral hammer toes (2009) Family History Family History Other Carcinoma of colon Cerebrovascular accident Depression Family history of Alzheimer's disease Family history of alcoholism Family history of cardiovascular disease Family history of migraine headaches Social History Social History Smoking status: Never smoker Second hand tobacco smoke exposure: No Alcohol intake: never Substance use: current Substance use type: marijuana Last use: 08/22/22 Lack of Transportation: No Lack of Food: Never True Current Housing: I Have Housing Concerned About Future Housing: No Difficulty Paying Gas/Electric Bills: No Difficulty Paying for Meds: No Currently Unemployed: No Education: Associate Degree Difficulty w/ Childcare or Family Care: No Living arrangements: alone Occupation/Education: occupation Additional occupation/education comments: [employer] Gender identity (if verbalized by the patient): Female Sexual Orientation (if Verbalized by the Patient): Straight or Heterosexual Spiritual care concerns: No Agree to blood products: Yes Meds Home Medications and Allergies Home Medications Medication Instructions Recorded Confirmed Type metformin 500 mg tablet 500 mg PO BID 02/11/19 08/13/22 History ergocalciferol (vitamin D2) 1,250 See Rx Instructions .Route 05/28/22 08/13/22 Rx mcg (50,000 unit) capsule .COMPLEX #12 caps ascorbic acid (vitamin C) 100 mg 100 mg PO DAILY
== END 2022-08-28 15:38 | disposition home or self-care (01) ==
LOC: ANHSURGERY 10:32 → ANH2MED 18:21
PROVIDERS: Physician Assistant Surgical; PCP Family Medicine; Visit Provider Orthopaedic Surgery
PROC: (CPT 27447; principal; 2022-08-27 11:30)
DX: M17.0 Bilateral primary osteoarthritis of knee (principal); E11.9 Type 2 diabetes mellitus without complications; I10 Essential (primary) hypertension; J45.909 Unspecified asthma, uncomplicated
CPT/HCPCS: 27447; 20610; 36415; 73560; 80048; 82948; 85025; 86850; 86900; 86901; 97110; 97116; 97161; 97165; A9270; C1713; C1770; C1776; J0171; J0690; J1040; J1100; J1170; J1885; J2250; J2270; J2405; J2704; J2795; J3010; J3370; J7030; J7120

== ENCOUNTER 2023-01-07 15:24 | Outpatient (CLI) | payer MEDICARE, SELFPAY ==
[2023-01-07 16:04] LABS: Basophils Absolute Auto 0.1 K/mm3 (0.0-0.1); Basophils Percent Auto 0.8 % (0.2-1.2); Eosinophils Absolute Auto 0.2 K/mm3 (0-0.3); Eosinophils Percent Auto 2.7 % (0-4.4); Hematocrit 35.3 % (37.0-47.0); Hemoglobin 10.5 g/dL (12.0-15.0); Immature Granulocyte Absolute 0.01 K/mm3 (0.00-0.031); Immature Granulocyte Percent A 0.2 % (0-0.5); Lymphocytes Absolute Auto 0.79 K/mm3 (0.9-3.2); Lymphocytes Percent Auto 12.6 % (18.3-44.2); Mean Corpuscular HGB Conc 29.7 g/dl (32-36); Mean Corpuscular Hemoglobin 24.8 pg (26-34); Mean Corpuscular Volume 83.5 fl (80-100); Mean Platelet Volume 9.7 fl (7.4-10.4); Monocytes Absolute Auto 0.6 K/mm3 (0.1-0.6); Monocytes Percent Auto 9.6 % (2.6-8.5); Neutrophils Absolute Auto 4.7 K/mm3 (1.3-6.7); Neutrophils Percent Auto 74.1 % (45.5-73.1); Platelet Count Result 315 k/mm3 (150-375); Red Blood Count 4.23 M/mm3 (4.2-5.4); White Blood Count 6.3 K/mm3 (4.5-10.0)
[2023-01-07 16:29] LABS: Platelet Estimate Adequate (Adequate)
[2023-01-07 16:30] LABS: Hypochromasia 1+ (NORMAL); Schistocytes None Seen (NORMAL)
[2023-01-07 16:31] LABS: Anisocytosis 1+ (NORMAL)
[2023-01-07 16:56] LABS: Urine Cotinine NEGATIVE
== END 2023-01-07 15:25 | disposition home or self-care (01) ==
LOC: ANHSURGERY 15:26
PROVIDERS: PCP Family Medicine; Visit Provider Orthopaedic Surgery
DX: M17.12 Unilateral primary osteoarthritis, left knee (principal); Z01.818 Encounter for other preprocedural examination
CPT/HCPCS: 80307; 85025; 86850; 86900; 86901; 87081

== ENCOUNTER 2023-01-16 09:46 | Inpatient (IN) | payer MEDICARE, SELFPAY ==
--- NOTE | 2022-12-26 15:19 | PC.NURSE ---
Report to the Outpatient Waiting Room, entrance under the green pavilion located off [facility], at time __0930 on date _01/14/23 . Planned Procedure Time: __1130 . Time changes happen often and if your time is changed the preop area will call you the afternoon before. - You and your visitor will be asked to self-screen and do not enter if you have any COVID symptoms. - A mask is optional within the hospital at this time. Patients may have clear liquids (water, carbonated beverages, clear teas, apple juice) until 3 hours prior to surgery with a maximum of 20 ounces. - No food from midnight until time of surgery - Infants may have breast milk until 4 hours before surgery, formula 6 hours prior to surgery. - Children will be allowed to drink immediately following surgery. If applicable, please bring a bottle or sippy cup to assist with drinking. Juice, water, soda, and popsicles are readily available. For infants on formula, please bring formula the day of surgery. Pacifiers are allowed. Take the following medications with a SIP of water the morning of surgery: __ESCITALOPRAM, DO NOT STOP ANY OF YOUR OTHER PRESCRIPTION MEDICATIONS PRIOR TO SURGERY ?EXCEPT THE FOLLOWING Medications to discontinue per physician ___ALL VITAMINS AND SUPPLEMENTS 3 DAYS PRE OP.LAST DOSE 01/10/23 Please no make-up, nail bhutanese, hairspray, perfume, deodorant, or body powder the day of surgery. No jewelry (including any body piercings) or valuables the day of surgery, leave them at home. Please take a shower or bath the night before, or the morning of, surgery with an antibacterial soap. Wear comfortable, loose fitting clothing. Children are encouraged to wear pajamas. - Jewelry must be removed prior to entering the operating room. Rings and piercings that are not removed may be cut off. - The hospital will not accept responsibility for valuables. - Please leave all valuables, including medications, at home the day of surgery. If you are going home after surgery, a licensed warehouse driver must drive you home. - NO public transportation without another adult if you receive anesthesia. - We recommend that an adult stay with you for 24 hours following discharge. - We also recommend that you do not drive, make important decision, drink alcoholic beverages, or take any drugs that were not prescribed by your health care provider for at least 24 hours after your discharge time. For Pediatric surgeries, we recommend two adults accompany the child home. Follow any additional instructions given to you from your surgeon. If you or anyone in your household have experienced Covid symptoms in the past week, please notify your surgeon or the nurse liaison at the phone number below for possible testing. Telephone instructions given to _PATIENT and asked if any additional questions and then verbalized understanding. Patient advised to call surgeon office or pre surgery nurse liaison [phone] if any additional questions.
[2022-12-26 15:32] VITALS: BMI 31.0
--- NOTE | 2023-01-12 12:41 | PM.IMHP ---
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 Patient has severe lateral compartment osteoarthritis with a significant valgus deformity to her knee. She underwent right total knee arthroplasty little earlier this year and did very well with her recovery and is very happy with her results. She feels this point she is ready to proceed with total knee arthroplasty on the left. Review of Systems Review of Systems: All systems reviewed & are unremarkable except as noted in HPI and below PMFSH Past Medical History Medical History Anxiety and depression Arthritis Asthma Diabetes Hypertension Vision loss reading glasses Surgical History Surgical History H/O section H/O toe surgery bilateral hammer toes (2009) Family History Family History Other Carcinoma of colon Cerebrovascular accident Depression Family history of Alzheimer's disease Family history of alcoholism Family history of cardiovascular disease Family history of migraine headaches Social History Social History Smoking status: Never smoker Second hand tobacco smoke exposure: No Additional smoking assessment comments: DENIES ANY FORM OF TOBACCO USE Alcohol intake: never Substance use: current Substance use type: marijuana Last use: 08/22/22 Lack of Transportation: No Lack of Food: Never True Current Housing: I Have Housing Concerned About Future Housing: No Difficulty Paying Gas/Electric Bills: No Difficulty Paying for Meds: No Currently Unemployed: No Education: Associate Degree Difficulty w/ Childcare or Family Care: No Living arrangements: alone Occupation/Education: occupation Additional occupation/education comments: [employer] Gender identity (if verbalized by the patient): Female Sexual Orientation (if Verbalized by the Patient): Straight or Heterosexual Spiritual care concerns: No Agree to blood products: Yes Meds Home Medications and Allergies Home Medications Medication Instructions Recorded Confirmed Type metformin 500 mg tablet 500 mg PO BID 02/11/19 12/26/22 History ergocalciferol (vitamin D2) 1,250 See Rx Instructions .Route 05/28/22 12/26/22 Rx mcg (50,000 unit) capsule .COMPLEX #12 caps ascorbic acid (vitamin C) 100 mg 100 mg PO DAILY 08/01/22 12/26/22 History tablet atorvastatin 20 mg tablet 20 mg PO EVERY OTHER DAY 08/01/22 12/26/22 History cyanocobalamin (vitamin B-12) 500 500 mcg PO DAILY 08/01/22 12/26/22 History mcg tablet escitalopram oxalate 20 mg tablet 20 mg PO QAM 08/01/22 12/26/22 History lisinopril 20 mg tablet 20 mg PO QAM 08/01/22 12/26/22 History mirtazapine 15 mg tablet 15 mg PO HS 08/01/22 12/26/22 History semaglutide 0.25 mg or 0.5 mg (2 0.5 mg subcut WEEKLY 08/01/22 12/26/22 History mg/1.5 mL) subcutaneous pen injector (Ozempic) acetaminophen 500 mg tablet 1,000 mg PO Q6H #90 tabs 08/28/22 12/26/22 Rx cinnamon bark 500 mg capsule 500 mg PO DAILY 12/26/22 12/26/22 History (Cinnamon) omega 1-lnu-hgr-fish oil 1,200 mg 1 cap PO BID 12/26/22 12/26/22 History (144 mg-216 mg) capsule (Fish Oil) Allergies Allergy/AdvReac Type Severity Reaction Status Date / Time Penicillins Allergy Unknown unknown Verified 12/26/22 15:07 Sulfa (Sulfonamide Allergy Unknown unknown Verified 12/26/22 15:07 Antibiotics) Exam Narrative: 72-year-old female alert pleasant. She is 5 ft 4 185 lb her BMI is 31.8. Her left knee range of motion is from 15-140 degrees. 2+ dorsalis pedis and posterior artery pulse palpable. She has normal muscle stren
[2023-01-14] VITALS (12 sets, daily range): BP systolic 104–169; BP diastolic 46–71; PULSE 71–83; RESP 12–82; TEMP 36–37.2; O2SAT 90–97
[2023-01-14] MEDS: LACTATED RINGERS 1,000 ML 30 ML IV CONT ×2 (10:20→17:15)
[2023-01-14 10:26] LABS: Glucose Point of Care 179 mg/dl (65-105)
[2023-01-14] MEDS: ACETAMINOPHEN 500 MG TABLET 1000 MG PO (10:27)
[2023-01-14] MEDS: VANCOMYCIN 1,250 MG/NS 250 ML BAG 166.67 MG IVPB (10:29)
[2023-01-14] MEDS: TRANEXAMIC ACID 1,000MG/ISO100 1,000 MG/100 ML BAG 200 MG IVPB (11:25)
--- NOTE | 2023-01-14 11:46 | WPDHPUPDATE1 ---
History and Physical Update Update Date/Time: 01/14/23 11:46 History and Physical has been reviewed, including an updated exam of the patient. There are NO changes in the patient's condition. Risks, benefits, and alternatives have been discussed and questions answered. Patient agrees to proceed with procedure.
--- NOTE | 2023-01-14 12:03 | WPDANESEPPF ---
Anes - Initial Pre Proc Eval Procedure: Operation Date: 01/14/23 11:30 Proposed Procedures p Left Total Knee Arthroplasty - Chao Peres MD Date/Time: 01/14/23 12:03 Surgeon: Chao Peres MD Pre Op Diagnosis: O A Lt Knee Patient Data Age: 72 Gender: F Height: 1.63 m Weight: 86.55 kg Last Vital Signs Temp 99.0 F 01/14/23 10:56 Pulse 78 01/14/23 10:56 Resp 18 01/14/23 10:56 BP 169/71 H 01/14/23 10:56 Pulse Ox 94 01/14/23 10:56 O2 Del Method Room Air 01/14/23 10:56 Allergies Allergy/AdvReac Type Severity Reaction Status Date / Time Penicillins Allergy Unknown unknown Verified 12/26/22 15:07 Sulfa (Sulfonamide Allergy Unknown unknown Verified 12/26/22 15:07 Antibiotics) Home Medications Medication Instructions Recorded Confirmed Type metformin 500 mg tablet 500 mg PO BID 02/11/19 12/26/22 History ergocalciferol (vitamin D2) 1,250 See Rx Instructions .Route 05/28/22 12/26/22 Rx mcg (50,000 unit) capsule .COMPLEX #12 caps ascorbic acid (vitamin C) 100 mg 100 mg PO DAILY 08/01/22 12/26/22 History tablet atorvastatin 20 mg tablet 20 mg PO EVERY OTHER DAY 08/01/22 12/26/22 History cyanocobalamin (vitamin B-12) 500 500 mcg PO DAILY 08/01/22 12/26/22 History mcg tablet escitalopram oxalate 20 mg tablet 20 mg PO QAM 08/01/22 12/26/22 History lisinopril 20 mg tablet 20 mg PO QAM 08/01/22 12/26/22 History mirtazapine 15 mg tablet 15 mg PO HS 08/01/22 12/26/22 History semaglutide 0.25 mg or 0.5 mg (2 0.5 mg subcut WEEKLY 08/01/22 12/26/22 History mg/1.5 mL) subcutaneous pen injector (Ozempic) acetaminophen 500 mg tablet 1,000 mg PO Q6H #90 tabs 08/28/22 12/26/22 Rx cinnamon bark 500 mg capsule 500 mg PO DAILY 12/26/22 12/26/22 History (Cinnamon) omega 8-edi-akk-fish oil 1,200 mg 1 cap PO BID 12/26/22 12/26/22 History (144 mg-216 mg) capsule (Fish Oil) Laboratory Tests 01/14/23 10:20 POC Capillary Glucose 179 H mg/dl (65-105) Patient hx anesthesia problems: none Family hx anesthesia problems: none Results Review: All pre-operative results and documents have been reviewed as part of the pre-operative evaluation. [facility] Past Medical History Medical History Anxiety and depression Arthritis Asthma Diabetes Hypertension Vision loss reading glasses Surgical History Surgical History H/O section H/O toe surgery bilateral hammer toes (2009) Family History Family History Other Carcinoma of colon Cerebrovascular accident Depression Family history of Alzheimer's disease Family history of alcoholism Family history of cardiovascular disease Family history of migraine headaches Social History Social History Smoking status: Never smoker Second hand tobacco smoke exposure: No Additional smoking assessment comments: DENIES ANY FORM OF TOBACCO USE Alcohol intake: never Substance use: current Substance use type: marijuana Last use: 08/22/22 Lack of Transportation: No Lack of Food: Never True Current Housing: I Have Housing Concerned About Future Housing: No Difficulty Paying Gas/Electric Bills: No Difficulty Paying for Meds: No Currently Unemployed: No Education: Associate Degree Difficulty w/ Childcare or Family Care: No Living arrangements: alone Occupation/Education: occupation Additional occupation/education comments: [employer] Gender identity (if verbalized by the patient): Female Sexual Orientation (if Verbalized by the Patient): Straight or Heterosexual Spiritual care concerns: No Agree to blood products: Yes Anes - Eval Final PreProcedure Day of Procedure 01/14/23 12:03 Patient weight: obese Heart: regul
[2023-01-14 12:51] LABS: Glucose Point of Care 146 mg/dl (65-105)
[2023-01-14] MEDS: ceFAZolin 2 GM/D5W 50 ML 2 GM/50 ML BAG IVPB (12:52)
[2023-01-14] MEDS: ceFAZolin SODIUM 1 GM VIAL 3 GM (13:55)
[2023-01-14] MEDS: GENTAMICIN BONE CEMENT REFOBACIN 1 EACH TOPICAL (13:56)
[2023-01-14] MEDS: ceFAZolin SODIUM 1 GM VIAL 2 GM IV PUSH (16:25)
[2023-01-14] MEDS: TRANEXAMIC ACID 1,000 MG/10 ML AMPUL 1000 MG IV PUSH (16:26)
--- NOTE | 2023-01-14 17:06 | W.PM.PROC2 ---
Procedure Note - Detailed Date of Procedure 01/14/23 Pre-op Diagnosis O A Lt Knee Post-op Diagnosis Same Procedure Performed Left total knee arthroplasty Surgeon Chao Peres MD Chute Operator Jono Anesthesia General Description of Procedure Patient was brought to the operating room and general anesthesia was administered. She received 2 g of Ancef weight based vancomycin 1 g of tranexamic acid preoperatively. The left knee was prepped draped usual fashion. Under anesthesia she still had a 15 degree flexion contracture. Limb was exsanguinated tourniquet elevated to 300 mmHg. An 8 in longitudinal midline incision was used and a standard parapatellar arthrotomy utilized. Infrapatellar and suprapatellar fat pads were excised a quadriceps synovectomy carried out. There was some minimal spurs and medial aspect of the patella and mild chondromalacia centrally and I thought the patella was appropriate for non resurfacing. A guide kaushal was inserted down the femoral canal after aspiration of canal contents using the 5 degree valgus cutting bushing, the 11 mm of bone removed the distal femur. This removed about 4 mm from lateral side. Next the tibial plateau was cut. Our initial cut did not quite fit through the articular cartilage of the posterior 1/3 of the tibia. Additional 3 mm of bone were removed which brought us just under the articular cartilage the medial side. Cut was made perpendicular to the axis of the tibia. Bone quality was good. Meniscal remnants were excised and the PCL recessed. The lateral side measured 14 mm gap in 90? flexion and the medial side 9 mm. The femoral sizing guide was applied the distal femur set at 6? of external rotation which matched Whitesides line. AP and chamfer cuts were made using the size 67.5 cutting block which gave a flush cut with the anterior cortex. On trialing, with the 10 CR insert, the knee lacked 15? of extension no play laterally booking open medially. IT band was released 1 cm proximal tibial plateau using pie crusting technique and posterolateral capsule was released leaving the popliteus and lateral collateral ligament intact to protect peroneal nerve from being over stretched. Central posterior capsule was released. Hypertrophic osteophytes on the fabella were debrided. The tibia was sized to a 71 which fit line to line posterolateral to anteromedial and this was punched. We trialed with the 10 insert and there was still a 10 degree flexion contracture the but the medial side was not booked open in this position. An additional 2 mm of bone was removed from the distal femur chamfer cuts revisited. On repeat trialing, with the 10 insert, the knee still lacked 1 or 2? of extension and there is excessive play medially valgus stress and I did not feel that insert would give us adequate medial stability. We therefore converted to a posterior stabilized with a 10 using stabilized plus as flexion I felt we had adequate medial to lateral balance such that SSK maximum constraint would not be necessary. The intercondylar notch bone was removed for the posterior stabilized housing and we trialed and at 70? of flexion the success of inferior translation with the 10 insert the the PS Plus post and the 12 5 and 1 insert PS Plus post had better flexion stability and still had adequate flexion gravity to 135. We had the tourniquet down by this time at 90 minutes. Patellar tracking was not perfect until we did a little bit of additional lateral retinacular release again patellar tracking was excellent. With a 12 insert however we lacked about a full 10? of extension. Therefore an additional 2 mm of bone removed the distal femur and the intercondylar box removed revisited and on repeat trialing with a 12 PS plus insert the knee came to above 2 or 3? from full extension with a barely positive bounce and I felt this was preferable to accept this rather additional distal femur extension waiting mid flexion anter
[2023-01-14 17:23] LABS: Glucose Point of Care 217 mg/dl (65-105)
--- NOTE | 2023-01-14 17:24 | PM.OP ---
Procedure Note - Brief Procedure Note - Brief Date of procedure: 01/14/23 O A Lt Knee Procedure performed: Left total knee arthroplasty Surgeon: EFRA Shen Findings: 72-year-old female who underwent left total knee arthroplasty on 01/14. I was involved in the procedure including positioning patient on your table as well as 1st assisting to time surgery. Total time spent was 4 hours
[2023-01-14] MEDS: INSULIN HUMAN REGULAR (*BKC) 100 UNITS/ML IV PUSH (17:39)
[2023-01-14 18:29] LABS: Glucose Point of Care 204 mg/dl (65-105)
--- NOTE | 2023-01-14 18:45 | ADMGEN ---
This patient, Avni Liang, was admitted to [address] [place] [address] Room 300-01. Patient/family oriented to hospital policies and general routines including ID bracelet, bed and alarms, visiting hours, pain management, procedures, bathroom and other care routines, personal items, smoking policy, room service/diet, and visiting hours. Information on how to activate the Rapid Response Team has been discussed. Patient/Family are encouraged to report perceived risks to care and to ask questions if they do not understand what they are told or what they should do.
[2023-01-14] MEDS: SODIUM CHLORIDE 0.9% IV 1,000 ML 125 ML IV CONT (20:14)
[2023-01-14] MEDS: ceFAZolin 1 GM/NS 50 ML 1 GM/50 ML BAG IVPB (20:14)
[2023-01-14] MEDS: FAMOTIDINE 20 MG TABLET PO (20:17)
[2023-01-14] MEDS: MIRTAZAPINE 15 MG TABLET PO (20:17)
[2023-01-14] MEDS: oxyCODONE HCL (*CRX) 5 MG TAB IR PO (20:17)
[2023-01-14] MEDS: VANCOMYCIN 1,000 MG/NS 250 ML 1,000 MG/250 ML BAG 250 MG IVPB (22:10)
[2023-01-15] VITALS (14 sets, daily range): BP systolic 120–143; BP diastolic 50–97; PULSE 77–100; RESP 16–20; TEMP 36–36.9; O2SAT 87–96
[2023-01-15] MEDS: oxyCODONE HCL (*CRX) 5 MG TAB IR PO ×6 (01:09→20:50)
[2023-01-15] MEDS: ceFAZolin 1 GM/NS 50 ML 1 GM/50 ML BAG IVPB ×2 (05:08→12:57)
[2023-01-15 07:03] LABS: Basophils Percent Auto 0.3 % (0.2-1.2); Eosinophils Percent Auto 0.2 % (0-4.4); Hematocrit 28.3 % (37.0-47.0); Hemoglobin 8.2 g/dL (12.0-15.0); Immature Granulocyte Absolute 0.03 K/mm3 (0.00-0.031); Immature Granulocyte Percent A 0.3 % (0-0.5); Lymphocytes Percent Auto 5.1 % (18.3-44.2); Mean Corpuscular Hemoglobin 24.9 pg (26-34); Mean Platelet Volume 9.8 fl (7.4-10.4); Monocytes Percent Auto 10.5 % (2.6-8.5); Neutrophils Absolute Auto 8.2 K/mm3 (1.3-6.7); Neutrophils Percent Auto 83.6 % (45.5-73.1); Platelet Count Result 287 k/mm3 (150-375); Red Blood Count 3.29 M/mm3 (4.2-5.4); Red Cell Distribution Width 15.7 % (11.5-14.5); White Blood Count 9.8 K/mm3 (4.5-10.0)
[2023-01-15 07:14] LABS: Anion Gap 7 mmol/L (8-16); Blood Urea Nitrogen 25 mg/dL (7-17); Carbon Dioxide 27 mmol/L (22-30); Chloride 103 mmol/L (98-107); Estimated CRCL calculation 54 ml/min; Estimated Glomerular Filt Rate > 60; Glucose 176 mg/dL (65-110); Potassium 4.2 mmol/L (3.4-5.0); Sodium 137 mmol/L (137-145)
--- NOTE | 2023-01-15 07:34 | PM.PNORT ---
Subjective Subjective Date/Time Seen: 01/15/23 07:34 Interval history: Postop day 1 patient is alert afebrile vital signs are stable. She states that she has a little bit foggy due to anesthesia but he is alert and able to communicate well. Pain is well controlled. Dressing is dry and intact. She has been up to the restroom overnight. Neurovascularly she is intact. Morning labs are noted. Cbc was not completed at time of dictation Chem panel was noted. Overall patient appears to be doing well on postop day 1. We will plan have her work with therapy this morning and again this afternoon once IV antibiotics have been completed she will be discharged home. Patient recently had her right knee replaced and is well aware of the recovery. Objective Data Vital Signs Vital Signs: Vital Signs - 24 hr 01/14/23 10:56 01/14/23 17:15 01/14/23 17:30 Temperature 37.2 C Pulse Rate 78 80 71 Respiratory Rate 18 82 H 12 Blood Pressure 169/71 H 123/56 L 123/56 L Pulse Oximetry 94 95 95 Oxygen Delivery Room Air Simple Face Mask Simple Face Mask Oxygen Flow Rate 8 8 01/14/23 17:45 01/14/23 18:00 01/14/23 18:15 Temperature Pulse Rate 76 83 76 Respiratory Rate 12 12 12 Blood Pressure 123/59 L 120/58 L 122/64 Pulse Oximetry 94 90 93 Oxygen Delivery Nasal Cannula Nasal Cannula Nasal Cannula Oxygen Flow Rate 3 3 3 01/14/23 18:25 01/14/23 18:45 01/14/23 19:00 Temperature 36.0 C L 36.1 C L Pulse Rate 72 74 71 Respiratory Rate 12 18 18 Blood Pressure 122/64 121/63 108/51 L Pulse Oximetry 94 92 96 Oxygen Delivery Nasal Cannula Oxygen Flow Rate 3 01/14/23 19:14 01/14/23 20:14 01/14/23 23:51 Temperature 36.5 C 36.6 C 36.6 C Pulse Rate 80 81 80 Respiratory Rate 18 16 18 Blood Pressure 104/46 L 107/60 107/53 L Pulse Oximetry 97 95 95 Oxygen Delivery Oxygen Flow Rate 01/15/23 04:14 Temperature 36.2 C L Pulse Rate 77 Respiratory Rate 16 Blood Pressure 120/58 L Pulse Oximetry 90 Oxygen Delivery Oxygen Flow Rate Intake/Output Intake/Output: Intake & Output 01/12/23 01/13/23 01/14/23 01/15/23 23:59 23:59 23:59 23:59 Intake Total 1000 500 Balance 1000 500 Meds/Results Medications: Active Medications Generic Name Dose Route Start Last Admin Trade Name Freq PRN Reason Stop Dose Admin Acetaminophen 1,000 mg 01/14/23 19:00 01/15/23 06:37 Acetaminophen 500 Mg Tablet PO Not Given Q6H SARAH Apixaban 2.5 mg 01/15/23 09:00 Apixaban 2.5 Mg Tablet PO 01/26/23 21:01 Q12HR SARAH Atorvastatin Calcium 20 mg 01/15/23 09:00 Atorvastatin 20 Mg Tablet PO Q48H SARAH Diphenhydramine HCl 25 mg 01/14/23 18:29 Diphenhydramine Hcl Inj 50 Mg/Ml Vial IV PUSH Q6H PRN Itching Doxycycline Hyclate 100 mg 01/15/23 09:00 Doxycycline Hyclate 100 Mg Tablet PO Q12HR SARAH Ergocalciferol 50,000 units 01/18/23 09:00 Ergocalciferol 50,000 Units Capsule PO Hester@0900 SARAH Escitalopram Oxalate 20 mg 01/15/23 09:00 Escitalopram Oxalate 10 Mg Tablet PO QAM SARAH Famotidine 20 mg 01/14/23 21:00 01/14/23 20:17 Famotidine 20 Mg Tablet PO 20 mg Q12HR SARAH Administration Vancomycin HCl 1,000 mg in 250 mls @ 250 mls/hr 01/14/23 23:00 01/14/23 23:10 Vancomycin 1,000 Mg/Ns 250 Ml IVPB 01/15/23 11:59 Infused Q12H SARAH Infusion Cefazolin Sodium 1 gm in 50 mls @ 100 mls/hr 01/14/23 21:00 01/15/23 05:38 Ancef 1 Gm/Ns 50 Ml IVPB 01/15/23 13:29 Infused Q8H SARAH Infusion Meloxicam 7.5 mg 01/15/23 08:00 Meloxicam 7.5 Mg Tablet PO DAILY@0800 SARAH Metformin HCl 500 mg 01/15/23 09:00 Metformin Hcl 500 Mg Tablet PO BID SARAH Mirtazapine 15 mg 01/14/23 21:00 01/14/23 20:17 Mirtazapine 15 Mg Tablet PO 15 mg HS SARAH Administration Morphine Sulfate 2 mg 01/14/23 18:29 Morphine Sulfate (*Crx) 2 Mg/Ml Inj IV PUSH Q4H PRN Pain Rated 7-10 Naloxone HCl 0.1 mg 01/14/23 18:29 Naloxone
--- NOTE | 2023-01-15 07:40 | PM.DS ---
DS: Admitting Diagnosis Discharge Date 01/15 Admitting Diagnosis Left knee DJD DS: Discharge Diagnosis Discharge Diagnosis (1) Left knee DJD: Code(s): M17.12 - Unilateral primary osteoarthritis, left knee Status: Acute DS: Summary Hospital Course Hospital Course: 72-year-old female who underwent left total knee arthroplasty on 01/14. Underwent the procedure without complications. Postoperatively she is afebrile vital signs are stable. Patient is weight-bearing as tolerated. She is on Eliquis for DVT prophylaxis. Pain is well controlled with scheduled Tylenol as well as oxycodone 5 mg. Morning of postop day 1 patient's dressing was intact and dry. Neurovascularly she is intact. She will be discharged home on 01/15. She will go home the 10 day course of doxycycline. She also go home with Senokot and MiraLax. She will also be on meloxicam 7.5 mg daily. She is alert sulfa drugs so we are not using Celebrex. Patient was advised to keep leg elevated home prevent swelling but do her exercises on hourly basis. She had her right knee replaced approximately 4 months ago and is well aware of her recovery I want needs to be done. She was advised any questions or concerns she is to call the office otherwise we will see her at her appointment. Time Spent with Patient Time attestation: Total time spent providing and/or coordinating discharge services: DS: Data Data Completed and Pending Labs on day of discharge: Labs from last 24 hours 01/15/23 01/14/23 01/14/23 06:09 18:14 17:21 WBC Pending RBC Pending Hgb Pending Hct Pending MCV Pending MCH Pending MCHC Pending RDW Pending Plt Count Pending MPV Pending Immature Gran % (Auto) Pending Neut % (Auto) Pending Lymph % (Auto) Pending [place] % (Auto) Pending Eos % (Auto) Pending Baso % (Auto) Pending Lymph # (Auto) Pending [place] # (Auto) Pending Eos # (Auto) Pending Baso # (Auto) Pending Abs Immat Gran (auto) Pending Absolute Neuts (auto) Pending Absolute Nucleated RBC Pending Nucleated RBC % Pending Sodium 137 Potassium 4.2 Chloride 103 Carbon Dioxide 27 Anion Gap 7 L BUN 25 H Creatinine 0.90 Estim Creat Clear Calc 54 Estimated GFR > 60 Glucose 176 H POC Capillary Glucose 204 H 217 H Calcium 8.0 L 01/14/23 01/14/23 12:47 10:20 WBC RBC Hgb Hct MCV MCH MCHC RDW Plt Count MPV Immature Gran % (Auto) Neut % (Auto) Lymph % (Auto) [place] % (Auto) Eos % (Auto) Baso % (Auto) Lymph # (Auto) [place] # (Auto) Eos # (Auto) Baso # (Auto) Abs Immat Gran (auto) Absolute Neuts (auto) Absolute Nucleated RBC Nucleated RBC % Sodium Potassium Chloride Carbon Dioxide Anion Gap BUN Creatinine Estim Creat Clear Calc Estimated GFR Glucose POC Capillary Glucose 146 H 179 H Calcium Discharge Plan Discharge Patient Disposition: Home, Self-Care Discharge Instructions: MILY AVINA M.D [facility], [place] [address] [address] POST-OPERATIVE DISCHARGE INSTRUCTIONS TOTAL KNEE ARTHROPLASTY 1. When resting, lie on back with leg elevated above heart to minimize swelling. Significant swelling could indicate a blood clot and if this occurs call the office (or go to the ER) to have a venous ultrasound. 2. Do exercise 5 times a day. 3. Do not sit with leg down except for meals. 4. Wound Care: Nursing will give additional dressings at discharge. Patient to change dressing at home 1 week from surgery, then maintain until seen in office. 5. May shower with dressing in place. 6. Follow weight bearing status instructions. IMPORTANT: Remember not to sit in the chair for more than 30 minutes at a time. As a rule, during the first 14 days after surgery, only sit in the chair to work on the chair knee b
[2023-01-15 07:41] LABS: Platelet Estimate Adequate (Adequate)
[2023-01-15 07:42] LABS: Anisocytosis 1+ (NORMAL); Burr Cells 1+ (NORMAL); Poikilocytosis 1+ (NORMAL)
[2023-01-15 07:43] LABS: Ovalocytes 1+ (NORMAL); Schistocytes None Seen (NORMAL)
[2023-01-15 08:29] LABS: Glucose Point of Care 174 mg/dl (65-105)
[2023-01-15] MEDS: APIXABAN 2.5 MG TABLET PO ×2 (08:32→20:50)
[2023-01-15] MEDS: FAMOTIDINE 20 MG TABLET PO ×2 (08:32→20:50)
[2023-01-15] MEDS: metFORMIN HCL 500 MG TABLET PO ×2 (08:32→18:03)
[2023-01-15] MEDS: SENNA/DOCUSATE SODIUM TABLET 2 TAB PO (08:32)
[2023-01-15] MEDS: ESCITALOPRAM OXALATE 10 MG TABLET 20 MG PO (08:32)
[2023-01-15] MEDS: ATORVASTATIN 20 MG TABLET PO (08:33)
[2023-01-15] MEDS: DOXYCYCLINE HYCLATE 100 MG TABLET PO ×2 (08:33→20:50)
[2023-01-15] MEDS: MELOXICAM 7.5 MG TABLET PO (08:36)
--- NOTE | 2023-01-15 10:14 | P.PNAN_ITS ---
Anes - Prog Note Post-Op Date/Time: 01/15/23 10:14 Cardiovascular status: normal Respiratory status: normal Airway patency: baseline Mental status: baseline Post-Op hydration status: normal Vital Signs: Last Vital Signs Temp 98.5 F 01/15/23 08:00 Pulse 91 01/15/23 08:00 Resp 16 01/15/23 08:00 BP 143/64 H 01/15/23 08:00 Pulse Ox 96 01/15/23 08:00 O2 Del Method Room Air 01/15/23 08:02 O2 Flow Rate 3 01/14/23 18:25 Pain Score (VAS): 0/10 I/O: Intake & Output 01/14/23 01/15/23 01/15/23 23:59 07:59 15:59 Intake Total 600 500 Balance 600 500 Laboratory Tests 01/15/23 06:09 01/15/23 06:09 01/14/23 01/14/23 01/14/23 10:20 12:47 17:21 WBC RBC Hgb Hct MCV MCH MCHC RDW Plt Count MPV Immature Gran % (Auto) Neut % (Auto) Lymph % (Auto) [place] % (Auto) Eos % (Auto) Baso % (Auto) Lymph # (Auto) [place] # (Auto) Eos # (Auto) Baso # (Auto) Abs Immat Gran (auto) Absolute Neuts (auto) Absolute Nucleated RBC Nucleated RBC % Platelet Estimate Poikilocytosis Anisocytosis Ovalocytes Aries Cells Schistocytes Sodium Potassium Chloride Carbon Dioxide Anion Gap BUN Creatinine Estim Creat Clear Calc Estimated GFR Glucose POC Capillary Glucose 179 H 146 H 217 H Calcium 01/14/23 01/15/23 01/15/23 18:14 06:09 07:58 WBC 9.8 RBC 3.29 L Hgb 8.2 L Hct 28.3 L MCV 86.0 MCH 24.9 L MCHC 29.0 L RDW 15.7 H Plt Count 287 MPV 9.8 Immature Gran % (Auto) 0.3 Neut % (Auto) 83.6 H Lymph % (Auto) 5.1 L [place] % (Auto) 10.5 H Eos % (Auto) 0.2 Baso % (Auto) 0.3 Lymph # (Auto) 0.50 L [place] # (Auto) 1.0 H Eos # (Auto) 0.0 Baso # (Auto) 0.0 Abs Immat Gran (auto) 0.03 Absolute Neuts (auto) 8.2 H Absolute Nucleated RBC 0.0 Nucleated RBC % 0.0 Platelet Estimate Adequate Poikilocytosis 1+ Anisocytosis 1+ Ovalocytes 1+ Aries Cells 1+ Schistocytes None seen Sodium 137 Potassium 4.2 Chloride 103 Carbon Dioxide 27 Anion Gap 7 L BUN 25 H Creatinine 0.90 Estim Creat Clear Calc 54 Estimated GFR > 60 Glucose 176 H POC Capillary Glucose 204 H 174 H Calcium 8.0 L Post-procedural complaints: none Patient Feedback: Patient satisfied with anesthetic care.
--- NOTE | 2023-01-15 10:15 | PM.IMCN ---
Assessment and Plan Assessment and plan (1) Left knee DJD: Code(s): M17.12 - Unilateral primary osteoarthritis, left knee Status: Acute Assessment and Plan: Status post left knee replacement. (2) Hypertension: Code(s): I10 - Essential (primary) hypertension Status: Acute Assessment and Plan: Stable, continue home medicines, blood pressure reviewed on 01/15 (3) Type 2 diabetes mellitus without complication, without long-term current use of insulin: Code(s): E11.9 - Type 2 diabetes mellitus without complications Status: Acute Assessment and Plan: Stable added hemoglobin A1c to prior labs. ACHS fingerstick glucose with high-dose corrective insulin sliding scale HPI Data of Consult Consult date: 01/15/23 Requesting Physician: Chao Peres MD Primary Care Provider: Christina Colvin MD Consult Narrative Reason for consult: Medical management status post left knee replacement Narrative: Avni Liang is a 72 year old female admitted by orthopedic status post left knee replacement. Patient previously underwent right knee replacement in August of 2022. She has a history type 2 diabetes, hypertension, asthma, arthritis, anxiety, depression and obesity. She previously rehab did very well with right knee replacement. This morning patient states that she is getting around even better with her current replacement than she did previously. She has plans to discharge to her son's home and undergo therapy at his residence. Patient reports that she does not use insulin. She only takes metformin and diet diabetes control. Patient was not on any blood thinners prior to surgery and is planned to be on Eliquis low-dose 2.5 mg every 12 hours postoperatively for DVT prophylaxis. Patient did experience about 300 mL of blood loss during surgery hemoglobin went from 10 down to 8. Patient denies any medical concerns at this time and denies any complaints except expected pain of the left knee. Review of Systems Review of Systems: All systems reviewed & are unremarkable except as noted in HPI and below PMFSH Past Medical History Medical History Anxiety and depression Arthritis Asthma Diabetes Hypertension Vision loss reading glasses Surgical History Surgical History H/O section H/O toe surgery bilateral hammer toes (2009) Family History Family History Other Carcinoma of colon Cerebrovascular accident Depression Family history of Alzheimer's disease Family history of alcoholism Family history of cardiovascular disease Family history of migraine headaches Social History Social History Smoking status: Never smoker Second hand tobacco smoke exposure: No Additional smoking assessment comments: DENIES ANY FORM OF TOBACCO USE Alcohol intake: never Substance use: current Substance use type: marijuana Last use: 08/22/22 Lack of Transportation: No Lack of Food: Never True Current Housing: I Have Housing Concerned About Future Housing: No Difficulty Paying Gas/Electric Bills: No Difficulty Paying for Meds: No Currently Unemployed: No Education: Associate Degree Difficulty w/ Childcare or Family Care: No Living arrangements: alone Occupation/Education: occupation Additional occupation/education comments: [employer] Gender identity (if verbalized by the patient): Female Sexual Orientation (if Verbalized by the Patient): Straight or Heterosexual Spiritual care concerns: No Agree to blood products: Yes Meds Home Medications and Allergies Home Medications Medication Instructions Recorded Confirmed Type metformin 500 mg tablet 500 mg PO BID 02/11
[2023-01-15] MEDS: VANCOMYCIN 1,000 MG/NS 250 ML 1,000 MG/250 ML BAG 250 MG IVPB (11:31)
--- NOTE | 2023-01-15 11:37 | PC.NURSE ---
oxygen saturation at 97% on O2 at tow liters per NC. Oxygen decreased to one liter. Will recheck saturation. Pt using I/S at this time.
[2023-01-15 11:45] LABS: Hemoglobin A1C 6.3 % (<5.7)
[2023-01-15 11:55] LABS: Glucose Point of Care 210 mg/dl (65-105)
--- NOTE | 2023-01-15 13:06 | PC.NURSE ---
Pt on RA. O2 sats drop to 88% at times but maintains at 92-96% most of the time. Pt continues to use I/S. Up ith therapy. Assisted back to bed. Will monitor.
--- NOTE | 2023-01-15 13:15 | PC.NURSE ---
O2 replaced at 1L per NC. Sats continue to drop into the upper 88%. Sats currently at 94-97%.
[2023-01-15] MEDS: IPRATROPIUM BR 0.02% INH SOLN 0.5 MG/2.5 ML VIAL INHALATION (13:39)
[2023-01-15] MEDS: ALBUTEROL SULFATE NEB 2.5 MG/3 ML INH INHALATION (13:39)
--- NOTE | 2023-01-15 14:38 | PCPTNOTE ---
Patient refused treatment this session due to not feeling well. Patient reported she was sick to her stomach and did not want to do therapy at this time. Encouraged patient for participation, patient continued to refuse.
--- NOTE | 2023-01-15 16:10 | HOMEO2EVAL ---
Evaluation was performed at [facility] Home Oxygen Evaluation RC: Home Oxygen (O2) Evaluation Start: 01/15/23 15:05 Freq: ONCE Status: Active Protocol: RPE Activity Type Activity Date Activity User E-sign Co-sign Detail Recorded Client Recorded Date Recorded By Document 01/15/23 15:00 [email or web address] 01/15/23 16:10 NAZ Document 01/15/23 15:05 [email or web address] [email or web address] 01/15/23 16:10 NAZ Document 01/15/23 15:06 [email or web address] [email or web address] 01/15/23 16:10 NAZ Document 01/15/23 15:08 [email or web address] [email or web address] 01/15/23 16:10 NAZ Document 01/15/23 15:15 [email or web address] [email or web address] 01/15/23 16:10 NAZ 01/15/23 01/15/23 01/15/23 15:00 15:05 15:06 Home O2 Evaluation [Oxygen] -Test Phase Resting Resting Resting -Oxygen Delivery Room Air Nasal Cannula Nasal Cannula -Oxygen Flow Rate (L/min) 1 2 [Pulse Oximetry] -Pulse Oximetry (90-100 %) 87 L 87 L 94 [Comments] -Home Oxygen Evaluation Comments [Charges] -Treatment Charges O2 Evaluation - Inpatient 01/15/23 01/15/23 15:08 15:15 Home O2 Evaluation [Oxygen] -Test Phase Exercise Resting -Oxygen Delivery Nasal Cannula Nasal Cannula -Oxygen Flow Rate (L/min) 2 2 [Pulse Oximetry] -Pulse Oximetry (90-100 %) 90 93 [Comments] -Home Oxygen Evaluation Comments PT REQUIRES 2 LITERS HOME O2 AT REST AND WITH ACTIVITY [Charges] -Treatment Charges
[2023-01-15 16:33] LABS: Glucose Point of Care 222 mg/dl (65-105)
--- NOTE | 2023-01-15 16:44 | PC.NURSE ---
patient still requiring oxygen. 87% on room air. IS encouraged. oxygen currently on 1 L running 92%.
[2023-01-15] MEDS: MIRTAZAPINE 15 MG TABLET PO (20:50)
[2023-01-15 21:06] LABS: Glucose Point of Care 200 mg/dl (65-105)
--- NOTE | ~2023-01-16 | XR_ITS ---
EXAMINATION: XR chest 1V portable DATE: 01/15/2023 17:00 INDICATION: Hypoxia. TECHNIQUE: A single frontal view of the chest was obtained. COMPARISON: Chest CT 03/26/2020 FINDINGS: There is no pneumonia, pleural effusion, or pneumothorax. The heart size is normal. IMPRESSION: 1. No acute cardiopulmonary disease. Reviewed, dictated and finalized at location A.
--- NOTE | ~2023-01-16 | XR_ITS ---
Left Knee Technique: Portable AP and crosstable lateral views Clinical History: Status post TKR Findings: Patient is status post total knee replacement. Orthopedic hardware alignment appears anatom ic. No hardware complication is evident. Subcutaneous emphysema and swelling is likely postoperative in nature. No acute osseous fracture is seen. Impression: Status post total knee replacement, without evidence of hardware complication. Reviewed, dictated and finalized at location . Impression: Status post total knee replacement, without evidence of hardware complication.
--- NOTE | ~2023-01-16 | CT_ITS ---
EXAMINATION: CTA chest PE protocol DATE: 01/16/2023 09:52 INDICATION: Shortness of breath TECHNIQUE: Computed tomography angiography (CTA) of the chest was performed with 100 mL Omnipaque-350 intravenous contrast timed to evaluate the pulmonary arteries. Coronal maximum intensity projection 3D-reconstructions were created by the technologist. The dose-length product (DLP) was 573.15 mGy-cm. Automated exposure control and iterative reconstruction technique were employed. COMPARISON: None. FINDINGS: The pulmonary arteries are well-opacified. No pulmonary embolism is identified. There are a reas of atelectasis in the right upper lower lobes and the left lower lobe. No pleural effusion or pn eumothorax. No pathologically enlarged thoracic lymph nodes are identified. The heart size is normal. Calcified coronary artery atherosclerosis is noted. There is moderate thoracic spondylosis. There ar e multiple chronic calcifications in liver segment I. There is a 5.1 cm cyst of the right kidney uppe r pole. IMPRESSION: 1. No pulmonary embolus identified. Reviewed, dictated and finalized at location B.
[2023-01-16] MEDS: ACETAMINOPHEN 500 MG TABLET 1000 MG PO ×3 (00:50→12:14)
[2023-01-16] MEDS: oxyCODONE HCL (*CRX) 5 MG TAB IR PO ×4 (00:51→12:14)
[2023-01-16 05:25] VITALS: BP 159/76; PULSE 86; RESP 16; TEMP 36.6; O2SAT 93
[2023-01-16 07:48] LABS: Fractional Inspired Oxygen 21 %; PCO2 VBG 34.1 mmHg (42.0-48.0); PO2 VBG 32.6 mmHg (35.0-45.0)
[2023-01-16 07:51] LABS: Glucose Point of Care 187 mg/dl (65-105)
[2023-01-16 07:51] LABS: pH VBG 7.427 (7.300-7.400)
[2023-01-16 08:01] LABS: Hematocrit 28.1 % (37.0-47.0); Hemoglobin 8.1 g/dL (12.0-15.0); Mean Corpuscular HGB Conc 28.8 g/dl (32-36); Mean Corpuscular Hemoglobin 24.6 pg (26-34); Mean Corpuscular Volume 85.4 fl (80-100); Mean Platelet Volume 9.5 fl (7.4-10.4); Platelet Count Result 213 k/mm3 (150-375); Red Blood Count 3.29 M/mm3 (4.2-5.4); White Blood Count 6.1 K/mm3 (4.5-10.0)
[2023-01-16 08:05] LABS: Alanine Aminotransferase 14 U/L (6-35); Albumin Level 3.8 g/dL (3.5-5.1); Alkaline Phosphatase 64 U/L (38-126); Anion Gap 8 mmol/L (8-16); Aspartate Amino Transferase 21 U/L (14-36); Bilirubin,Total 0.7 mg/dL (0.2-1.3); Blood Urea Nitrogen 14 mg/dL (7-17); Calcium 8.6 mg/dL (8.4-10.2); Carbon Dioxide 25 mmol/L (22-30); Chloride 100 mmol/L (98-107); Estimated CRCL calculation 69 ml/min; Estimated Glomerular Filt Rate > 60; Glucose 192 mg/dL (65-110); Potassium 3.8 mmol/L (3.4-5.0); Sodium 133 mmol/L (137-145)
[2023-01-16 08:15] LABS: INR 1.2; Prothrombin Time 15.6 Seconds (11.1-14.7)
[2023-01-16] MEDS: MELOXICAM 7.5 MG TABLET PO (08:21)
[2023-01-16] MEDS: FAMOTIDINE 20 MG TABLET PO (08:21)
[2023-01-16] MEDS: SENNA/DOCUSATE SODIUM TABLET 2 TAB PO (08:21)
[2023-01-16] MEDS: ESCITALOPRAM OXALATE 10 MG TABLET 20 MG PO (08:21)
[2023-01-16] MEDS: metFORMIN HCL 500 MG TABLET PO (08:21)
[2023-01-16] MEDS: APIXABAN 2.5 MG TABLET PO (08:22)
[2023-01-16] MEDS: DOXYCYCLINE HYCLATE 100 MG TABLET PO (08:22)
[2023-01-16 08:27] LABS: Partial Thromboplastin Time 28.3 SECONDS (22.3-36.8)
--- NOTE | 2023-01-16 09:27 | PCPTNOTE ---
Attempted to see patient for PT, however patient was leaving room for CT scan.
--- NOTE | 2023-01-16 10:44 | PM.IMPN ---
Subjective Date/time seen: 01/16/23 10:44 Objective Data Vital Signs Vital Signs: Vital Signs - 24 hr 01/15/23 11:10 01/15/23 11:46 01/15/23 12:14 Temperature 36.0 C L Pulse Rate 100 Respiratory Rate 20 Blood Pressure 127/50 L Pulse Oximetry 90 92 Oxygen Delivery Nasal Cannula Nasal Cannula Oxygen Flow Rate 2 1 01/15/23 13:41 01/15/23 13:52 01/15/23 15:00 Temperature Pulse Rate 99 89 Respiratory Rate 16 16 Blood Pressure Pulse Oximetry 87 L Oxygen Delivery Room Air Oxygen Flow Rate 01/15/23 15:05 01/15/23 15:06 01/15/23 15:08 Temperature Pulse Rate Respiratory Rate Blood Pressure Pulse Oximetry 87 L 94 90 Oxygen Delivery Nasal Cannula Nasal Cannula Nasal Cannula Oxygen Flow Rate 1 2 2 01/15/23 15:15 01/15/23 16:14 01/15/23 20:14 Temperature 36.6 C 36.8 C Pulse Rate 98 100 Respiratory Rate 16 20 Blood Pressure 134/59 L 125/97 H Pulse Oximetry 93 95 92 Oxygen Delivery Nasal Cannula Oxygen Flow Rate 2 01/15/23 21:00 01/16/23 05:25 01/16/23 08:00 Temperature 36.6 C Pulse Rate 86 Respiratory Rate 16 Blood Pressure 159/76 H Pulse Oximetry 93 93 Oxygen Delivery Nasal Cannula Room Air Oxygen Flow Rate 1 Intake/Output Intake/Output: Intake & Output 01/13/23 01/14/23 01/15/23 01/16/23 23:59 23:59 23:59 23:59 Intake Total 1000 980 420 Balance 1000 980 420 Meds/Results Medications: Active Medications Generic Name Dose Route Start Last Admin Trade Name Freq PRN Reason Stop Dose Admin Acetaminophen 1,000 mg 01/14/23 19:00 01/16/23 08:21 Acetaminophen 500 Mg Tablet PO 1,000 mg Q6H SARAH Administration Apixaban 2.5 mg 01/15/23 09:00 01/16/23 08:22 Apixaban 2.5 Mg Tablet PO 01/26/23 21:01 2.5 mg Q12HR SARAH Administration Atorvastatin Calcium 20 mg 01/15/23 09:00 01/15/23 08:33 Atorvastatin 20 Mg Tablet PO 20 mg Q48H SARAH Administration Dextrose 12.5 gm 01/15/23 10:24 Dextrose 50% 25 Gm/50 Ml Syringe IV PUSH PRN PRN Hypoglycemia Protocol Diphenhydramine HCl 25 mg 01/14/23 18:29 Diphenhydramine Hcl Inj 50 Mg/Ml Vial IV PUSH Q6H PRN Itching Doxycycline Hyclate 100 mg 01/15/23 09:00 01/16/23 08:22 Doxycycline Hyclate 100 Mg Tablet PO 100 mg Q12HR SARAH Administration Ergocalciferol 50,000 units 01/18/23 09:00 Ergocalciferol 50,000 Units Capsule PO Hester@0900 SARAH Escitalopram Oxalate 20 mg 01/15/23 09:00 01/16/23 08:21 Escitalopram Oxalate 10 Mg Tablet PO 20 mg QAM SARAH Administration Famotidine 20 mg 01/14/23 21:00 01/16/23 08:21 Famotidine 20 Mg Tablet PO 20 mg Q12HR SARAH Administration Glucagon 1 mg 01/15/23 10:24 Glucagon For Inj 1 Mg Vial IM PRN PRN Hypoglycemia Protocol Glucose 15 gm 01/15/23 10:24 Glucose Oral Gel 15 Gm Of Glucse In 37.5 Gm Tube PO PRN PRN Hypoglycemia Protocol Dextrose 1,000 mls @ 100 mls/hr 01/15/23 10:24 Dextrose 5% 1,000 Ml IVPB PRN PRN Hypoglycemia Protocol Insulin Aspart 2 - 4 units 01/15/23 21:00 01/15/23 20:50 Insulin Aspart (*Bkc) 100 Units/Ml SUB-Q Not Given HS [facility] Protocol Insulin Aspart 4 - 8 units 01/15/23 12:00 01/16/23 08:22 Insulin Aspart (*Bkc) 100 Units/Ml SUB-Q Not Given TIDWM [facility] Protocol Meloxicam 7.5 mg 01/15/23 08:00 01/16/23 08:21 Meloxicam 7.5 Mg Tablet PO 7.5 mg DAILY@0800 [facility] Administration Metformin HCl 500 mg 01/15/23 09:00 01/16/23 08:21 Metformin Hcl 500 Mg Tablet PO 500 mg BID SARAH Administration Mirtazapine 15 mg 01/14/23 21:00 01/15/23 20:50 Mirtazapine 15 Mg Tablet PO 15 mg HS SARAH Administration Morphine Sulfate 2 mg 01/14/23 18:29 Morphine Sulfate (*Crx) 2 Mg/Ml Inj IV PUSH Q4H PRN Pain Rated 7-10 Naloxone HCl 0.1 mg 01/14/23 18:29 Naloxone Hcl 0.4 Mg/Ml Vial IV PUSH Q2M PRN Opiate Revers
--- NOTE | 2023-01-16 10:56 | PCOTNOTE ---
Attempted to see Patient for A.M. treatment session at this time. Upon entering the room. Patient verbalized, I already know who you are and I do not need your services . Therapist informed her of the importance of showing good abilities with tasks, she declined stating, I do everything for myself, If I have trouble my son will do it for me. I just had my other knee done and I have all of the equipment at home already. Patient stated, I'm going home with my son today .
--- NOTE | 2023-01-16 11:26 | PCRCNOTE ---
HOME O2 EVAL DONE, NEEDS 2 L REST AND ACTIVITY. SET UP WITH [facility], TANK IN ROOM FOR TRANSPORT HOME. CONTACT [facility] IF NEED TO SPEAK WITH DME. [phone]
[2023-01-16 11:42] LABS: Glucose Point of Care 194 mg/dl (65-105)
--- NOTE | 2023-01-16 12:33 | PM.PNORT ---
Subjective Subjective Date/Time Seen: 01/16/23 12:33 Interval history: Postop day 2 patient is alert. She has been afebrile vital signs are stable. Her hemoglobin is stable at 8 1. She had chest x-ray done yesterday which was negative she also had a CT to rule out pulmonary embolus which was negative as well. Patient was having difficulty maintaining her oxygen saturation when she was off oxygen yesterday and therefore had to be kept for an additional night for continued monitoring. Today she is doing much better. She is maintaining her sats off any additional oxygen she is comfortable and overall doing well. She has been up walking with physical therapy and having no symptoms at all. At this point we will plan on discharging her home today. Objective Data Vital Signs Vital Signs: Vital Signs - 24 hr 01/15/23 13:41 01/15/23 13:52 01/15/23 15:00 Temperature Pulse Rate 99 89 Respiratory Rate 16 16 Blood Pressure Pulse Oximetry 87 L Oxygen Delivery Room Air Oxygen Flow Rate 01/15/23 15:05 01/15/23 15:06 01/15/23 15:08 Temperature Pulse Rate Respiratory Rate Blood Pressure Pulse Oximetry 87 L 94 90 Oxygen Delivery Nasal Cannula Nasal Cannula Nasal Cannula Oxygen Flow Rate 1 2 2 01/15/23 15:15 01/15/23 16:14 01/15/23 20:14 Temperature 36.6 C 36.8 C Pulse Rate 98 100 Respiratory Rate 16 20 Blood Pressure 134/59 L 125/97 H Pulse Oximetry 93 95 92 Oxygen Delivery Nasal Cannula Oxygen Flow Rate 2 01/15/23 21:00 01/16/23 05:25 01/16/23 08:00 Temperature 36.6 C Pulse Rate 86 Respiratory Rate 16 Blood Pressure 159/76 H Pulse Oximetry 93 93 Oxygen Delivery Nasal Cannula Room Air Oxygen Flow Rate 1 Intake/Output Intake/Output: Intake & Output 01/13/23 01/14/23 01/15/23 01/16/23 23:59 23:59 23:59 23:59 Intake Total 1000 980 420 Balance 1000 980 420 Meds/Results Medications: Active Medications Generic Name Dose Route Start Last Admin Trade Name Freq PRN Reason Stop Dose Admin Acetaminophen 1,000 mg 01/14/23 19:00 01/16/23 12:14 Acetaminophen 500 Mg Tablet PO 1,000 mg Q6H SARAH Administration Apixaban 2.5 mg 10/12/23 09:00 01/16/23 08:22 Apixaban 2.5 Mg Tablet PO 01/26/23 21:01 2.5 mg Q12HR SARAH Administration Atorvastatin Calcium 20 mg 01/15/23 09:00 01/15/23 08:33 Atorvastatin 20 Mg Tablet PO 20 mg Q48H SARAH Administration Dextrose 12.5 gm 01/15/23 10:24 Dextrose 50% 25 Gm/50 Ml Syringe IV PUSH PRN PRN Hypoglycemia Protocol Diphenhydramine HCl 25 mg 01/14/23 18:29 Diphenhydramine Hcl Inj 50 Mg/Ml Vial IV PUSH Q6H PRN Itching Doxycycline Hyclate 100 mg 01/15/23 09:00 01/16/23 08:22 Doxycycline Hyclate 100 Mg Tablet PO 100 mg Q12HR SARAH Administration Ergocalciferol 50,000 units 01/18/23 09:00 Ergocalciferol 50,000 Units Capsule PO Hester@0900 [facility] Escitalopram Oxalate 20 mg 01/15/23 09:00 01/16/23 08:21 Escitalopram Oxalate 10 Mg Tablet PO 20 mg QAM SARAH Administration Famotidine 20 mg 01/14/23 21:00 01/16/23 08:21 Famotidine 20 Mg Tablet PO 20 mg Q12HR SARAH Administration Glucagon 1 mg 01/15/23 10:24 Glucagon For Inj 1 Mg Vial IM PRN PRN Hypoglycemia Protocol Glucose 15 gm 01/15/23 10:24 Glucose Oral Gel 15 Gm Of Glucse In 37.5 Gm Tube PO PRN PRN Hypoglycemia Protocol Dextrose 1,000 mls @ 100 mls/hr 01/15/23 10:24 Dextrose 5% 1,000 Ml IVPB PRN PRN Hypoglycemia Protocol Insulin Aspart 2 - 4 units 01/15/23 21:00 01/15/23 20:50 Insulin Aspart (*Bkc) 100 Units/Ml SUB-Q Not Given HS [facility] Protocol Insulin Aspart 4 - 8 units 01/15/23 12:00 01/16/23 12:06 Insulin Aspart (*Bkc) 100 Units/Ml SUB-Q Not Given TIDWM [facility] Protocol Meloxicam 7.5 mg 01/15/23 08:00 01/16/23 08:21 Meloxicam 7.5 Mg Tablet PO 7.5 mg DAILY@0800 [facility] Admini
--- NOTE | 2023-01-16 12:40 | PCOTNOTE ---
Attempted again this afternoon for Patient to participate in OT treatment session. Patient refused and reiterated she atkins not need OT therapy and is waiting to be discharged.
--- NOTE | 2023-01-16 13:03 | PCPTNOTE ---
Attempted to see patient for PT, however patient refused due to anticipated discharge.
== END 2023-01-16 15:00 | disposition home or self-care (01) | DRG 470 ==
LOC: ANHSURGERY 09:57 → ANH3MEDSUR 12:35
PROVIDERS: Nurse Practitioner; Admitting Provider Orthopaedic Surgery; PCP Family Medicine; Visit Provider Physician Assistant Surgical
PROC: 0SRD0J9 Replacement of Left Knee Joint with Synthetic Substitute, Cemented, Open Approach (ICD-10-PCS; CPT 27447; principal; 2023-01-14 11:30)
DX: M17.12 Unilateral primary osteoarthritis, left knee (principal); E11.9 Type 2 diabetes mellitus without complications; I10 Essential (primary) hypertension; M19.90 Unspecified osteoarthritis, unspecified site; F41.8 Other specified anxiety disorders; E66.9 Obesity, unspecified; Z68.32 Body mass index [BMI] 32.0-32.9, adult; Z79.84 Long term (current) use of oral hypoglycemic drugs
CPT/HCPCS: 36415; 71045; 71275; 73560; 80048; 80053; 82803; 82948; 83036; 85025; 85027; 85610; 85730; 94618; 94640; 94762; 97110; 97116; 97161; 97165; 97530; 97535; A9270; C1713; C1776; J0171; J0690; J1100; J1815; J1885; J2270; J2405; J2704; J2795; J3010; J3370; J7030; J7120; Q9967

== ENCOUNTER 2023-10-10 13:39 | Outpatient (CLI) | payer MEDICARE, SELFPAY ==
--- NOTE | ~2023-10-10 | MR_ITS ---
EXAMINATION: MR shoulder RT wo con DATE: 10/10/2023 14:39 INDICATION: M25.511 - Pain in right shoulder . TECHNIQUE: Magnetic resonance imaging (MRI) of the right shoulder was performed without intravenous c ontrast. Sequences included axial PD-weighted FS FSE, coronal oblique PD-weighted FS FSE and T2-weigh josie FS FSE, and sagittal oblique T2-weighted FS FSE and T1-weighted FSE. COMPARISON: X-ray right shoulder 09/23/2023, images only FINDINGS: Coracoacromial arch: Slight anterior downsloping of the type II acromion. Mild subacromial narrowing. No subcoracoid narro wing. Rotator cuff: 2 mm articular sided partial tear of the distal/anterior fibers of the infraspinatus at their inserti on. Small intrasubstance type tears of the muscle tendinous junctions of the infraspinatus and supras pinatus. Biceps tendon and glenoid labrum: Long head of biceps tendon is intact. Moderate degenerative changes of the glenoid labrum, without fo tano tear. Fluid: Small volume fluid in the subacromial subdeltoid bursa. Bones/cartilage: Moderate AC joint hypertrophy. Moderate cartilage thinning on the glenoid. IMPRESSION: 2 mm partial-thickness articular sided tear of the infraspinatus. Small intrasubstance type tears of the supraspinatus and infraspinatus. Mild subacromial narrowing, with mild subacromial subdeltoid bursitis. Moderate AC joint and glenohumeral joint osteoarthritis. Reviewed, dictated and finalized at location K. IMPRESSION: 2 mm partial-thickness articular sided tear of the infraspinatus. Small intrasu bstance type tears of the supraspinatus and infraspinatus. Mild subacromial narrowing, with mild subacromial subdeltoid bursitis. Moderate AC joint and glenohumeral joint osteoarthritis.
== END 2023-10-10 13:40 | disposition home or self-care (01) ==
PROVIDERS: PCP Family Medicine; Visit Provider Physician Assistant Surgical
DX: M75.111 Incomplete rotator cuff tear or rupture of right shoulder, not specified as traumatic (principal); M75.51 Bursitis of right shoulder; M19.011 Primary osteoarthritis, right shoulder
CPT/HCPCS: 73221

== ENCOUNTER 2025-02-23 01:10 | Day surgery (SDC) | payer MEDICARE, SELFPAY ==
--- OUTSIDE RECORDS SUMMARY | 2024-02-20 15:00 | XMS_ITS ---
Author Organization [facility] Address [address] [place] [address] Care Team Providers Care River Rat Name Role Phone Dione Kaye Unavailable [phone] Migration, Provider Unavailable Unavailable Allergies Allergen (clinical drug ingredient) Drug/Non Drug Allergy documented on EMR Reaction Allergy Type Onset Date Status penicillin V Penicillin V Potassium Unknown Drug Allergy Active sulfamethoxazole / trimethoprim Sulfamethoxazole-Tr imethoprim Unknown Drug Allergy Active REASON FOR VISIT [facility] Conversion Encounter Medications Medication SIG (Take, Route, Frequency, Duration) Notes Start Date End Date Status Escitalopram Oxalate 20 MG Tablet 1 tab(s) orally once a day A ctive Atorvastatin Calcium 20 MG Tablet 1 tab(s) orally once a day A ctive Lisinopril 20 MG Tablet 1 tab(s) orally once a day Active Propranolol HCl 10 MG Tablet 1 tab(s) orally 2 times a day; Duration: 30 days 01/28/2024 Active Ozempic (0.25 or 0.5 MG/DOSE) 2 MG/3ML Solution Pen-injector as directed subcutaneously once a week Active metFORMIN HCl 500 MG Tablet 1 tab(s) orally 2 times a day Active Vitamin D (Ergocalciferol) 1.25 MG (62869 UT) Capsule 1 cap(s) orally once a week Active Fish Oil 1200 MG Capsule 1 cap(s) orally 3 times a day Active Mirtazapine 15 MG Tablet 1 tab(s) orally once a day (at bedtime) Active Encounters Encounter Location Date Provider Diagnosis [address] [phone] 02/20/2024 Provider Migration Essential tremor G25.0 Assessments Encounter Date Diagnosis (ICD Code) Assessment Notes Treatment Notes Treatment Clinical Notes Section Notes 02/20/2024 Essential tremor (ICD-10 - G25.0) Plan Of Treatment Medication Medication Name Sig Start Date Stop Date Notes Propranolol HCl 10 MG Tablet 1 tab(s) or ally 2 times a day; Duration: 30 days 01/28/2024 Next Appt Details Provider Name:Dione Kaye, 03:40:00 PM, [address] [place] [address], [phone], Progress Notes * Marilu WILKERSONOB:1950 (74 yo F)Acc No.[id number]:02/20/2024 Patient: Krista Ericprema Provider: Codie Hollins :1950 A ge:73 Y S ex:Female Date:02/20/2024 Address:[address] [place] [address] Subjective: * Chief Complaints: * M ultum To Medis[facility] Conversion Encounter * Medications: T akingMirtazapine 15 MG Tablet 1 tab(s) orally once a day (at bedtime) Fish Oil 1200 MG Capsule 1 cap(s) orally 3 times a day Vitamin D (Ergocalciferol) 1.25 MG (87855 UT) Capsule 1 cap(s) orally once a week metFORMIN HCl 500 MG Tablet 1 tab(s) orally 2 times a day Lisinopril 20 MG Tablet 1 tab(s) orally once a day Atorvastatin Calcium 20 MG Tablet 1 tab(s) orally once a day Escitalopram Oxalate 20 MG Tablet 1 tab(s) orally once a day Ozempic (0.25 or 0.5 MG/DOSE) 2 MG/3ML Solution Pen-injector as directed subcutaneously once a week Taking Mirtazapine 15 MG Tablet 1 tab(s) orally once a day (at bedtime) Taking Fish Oil 1200 MG Capsule 1 cap(s) orally 3 times a day Taking Vitamin D (Ergocalciferol) 1.25 MG (88984 UT) Capsule 1 cap(s) orally once a week Taking metFORMIN HCl 500 MG Tablet 1 tab(s) orally 2 times a day Taking Lisinopril 20 MG Tablet 1 tab(s) orally once a day Taking Atorvastatin Calcium 20 MG Tablet 1 tab(s) orally once a day Taking Escitalopram Oxalate 20 MG Tablet 1 tab(s) orally once a day Taking Ozempic (0.25 or 0.5 MG/DOSE) 2 MG/3ML Solution Pen- injector as directed subcutaneously once a week * Allergies: P enicillin V PotassiumSulfamethoxazole-Trimethoprim Assessment: * Assessment: 1. E ssential tremor - G25.0 Plan: * Treatment: * Electronic signature of Milad mata Migration on 02/23/2025 at 02:07 AM BOTTOM IRONER Sign off status: Pending * Provider: Codie bailey Migration Date: 04/21/2023 Generated for Brian marshall/Gail/Sukhdeep on: 04/25/2024 02:07 AM BOTTOM IRONER
--- OUTSIDE RECORDS SUMMARY | 2024-02-25 08:20 | XMS_ITS ---
Author Organization [facility] Address [address] [place], [place] [address] Care Team Providers Care Animation Artist Name Role Phone Dione Kaye Unavailable [phone] REASON FOR VISIT 1 month Follow-up Medications Medication SIG (Take, Route, Frequency, Duration) Notes Start Date End Date Status Lisinopril 20 MG Tablet 1 tab(s) orally once a day Unknown Atorvastatin Calcium 20 MG Tablet 1 tab(s) orally once a day U nknown Escitalopram Oxalate 20 MG Tablet 1 tab(s) orally once a day U nknown Ozempic (0.25 or 0.5 MG/DOSE) 2 MG/3ML Solution Pen-injector as directed subcutaneously once a week Unknown Propranolol HCl 10 MG Tablet 1 tab(s) orally 2 times a day; Duration: 30 days 01/28/2024 Unknown metFORMIN HCl 500 MG Tablet 1 tab(s) orally 2 times a day Unknown Mirtazapine 15 MG Tablet 1 tab(s) orally once a day (at bedtime) Unknown Fish Oil 1200 MG Capsule 1 cap(s) orally 3 times a day Unknown Vitamin D (Ergocalciferol) 1.25 MG (32537 UT) Capsule 1 cap(s) orally once a week Unknown Encounters Encounter Location Date Provider Diagnosis [facility] Dr. Kaye [address] [place] [phone] 02/25/2024 Dione Kaye Plan Of Treatment Next Appt Details Provider Name:Dione Kaye, 03:40:00 PM, [address] [place] [address], [phone], History and Physical Notes * HPI (History of Present Illness) Category Sub-Category Detail Notes Category Not es Migrated HPI Diabetes : 73 yo female comes in for follow up in management of well controlled type 2 DM (A1C of 6.5%), weight management/obesity hx, fatigue, essential tremors and finding of elevated acth on labwork. at initial visit we continued metformin and ozempic for glucose control. we added propranolol for tremors. Progress Notes * Krista WILKERSONnDOB:1950 (74 yo F)Acc No.[id number]:02/25/2024 Progress Notes Patient: Avni Eric Provider: Diane Kaye MD :1950 A ge:73 Y S ex:Female Date:02/25/2024 Address:[address] [place] [address] Subjective: * Chief Complaints: * 1 month Follow-up * HPI: M igrated HPI: Diabetes : 73 yo female comes in for follow up in management of well controlled type 2 DM (A1C of 6.5%), weight management/obesity hx, fatigue, essential tremors and finding of elevated acth on labwork. at initial visit we continued metformin and ozempic for glucose control. we added propranolol for tremors. * Medications: U nknownMirtazapine 15 MG Tablet 1 tab(s) orally once a day (at bedtime) Fish Oil 1200 MG Capsule 1 cap(s) orally 3 times a day Vitamin D (Ergocalciferol) 1.25 MG (82160 UT) Capsule 1 cap(s) orally once a [...] Pen-injector as directed subcutaneously once a week Propranolol HCl 10 MG Tablet 1 tab(s) orally 2 times a day Unknown Mirtazapine 15 MG Tablet 1 tab(s) orally once a day (at bedtime) Unknown Fish Oil 1200 MG Capsule 1 cap(s) orally 3 times a day Unknown Vitamin D (Ergocalciferol) 1.25 MG (44783 UT) Capsule 1 cap(s) orally once a week Unknown metFORMIN HCl 500 MG Tablet 1 tab(s) orally 2 times a day Unknown Lisinopril 20 MG Tablet 1 tab(s) orally once a day Unknown Atorvastatin Calcium 20 MG Tablet 1 tab(s) orally once a day Unknown Escitalopram Oxalate 20 MG Tablet 1 tab(s) orally once a day Unknown Ozempic (0.25 or 0.5 MG/DOSE) 2 MG/3ML Solution Pen-injector as directed subcutaneously once a week Unknown Propranolol HCl 10 MG Tablet 1 tab(s) orally 2 times a day * Electronic signature of Samson Kaye MD on 02/23/2025 at 02:08 AM WAIVER ANALYST Sign off status: Pending * Provider: Diane Kaye MD Date: 04/26/2023 Generated for Brian marshall/Gail/Sukhdeep on: 04/25/2024 02:08 AM WAIVER ANALYST
--- OUTSIDE RECORDS SUMMARY | 2024-08-23 09:40 | XMS_ITS ---
Author Organization [facility] Address [address] [place] [address] Care Team Providers Care Christian Science Reader Name Role Phone Dione Kaye Unavailable [phone] REASON FOR VISIT Diabetic FU Encounters Encounter Location Date Provider Diagnosis [facility] Dr[facility] Kaye [address] [place] [address] 08/23/2024 Dione Kaye Plan Of Treatment Next Appt Details Provider Name:Dione Kaye, 03:40:00 PM, [address] [place] [address], [phone], Progress Notes * Krista WILKERSONnDOB:1950 (74 yo F)Acc No.[id number]:08/23/2024 Progress Notes Patient: Ashlie Ericregina Provider: Diane Kaye MD :1950 A ge:73 Y S ex:Female Date:08/23/2024 Address:[address] [place] [address] Subjective: * Chief Complaints: * D iabetic FU * Electronic signature of Samson Kaye MD on 02/23/2025 at 02:07 AM BI SPECIALIST Sign off status: Pending * Provider: Diane Kaye MD Date: 08/23/2024 Generated for Ifrahi ng/Fahareshg/eTransmitting on: 04/25/2024 02:07 AM BI SPECIALIST
--- OUTSIDE RECORDS SUMMARY | 2024-09-20 06:40 | XMS_ITS ---
Author Organization [facility] Address [address] [place] [address] Care Team Providers Care Admin Assistant Name Role Phone Dione Kaye Unavailable [phone] REASON FOR VISIT 1 month f/u Encounters Encounter Location Date Provider Diagnosis [facility] Dr[facility] Kaye [address] [place] [phone] 09/20/2024 Dione Kaye Plan Of Treatment Next Appt Details Provider Name:Dione Kaye, 03:40:00 PM, [address] [place] [address], [phone], Progress Notes * Marilu WILKERSONOB:1950 (74 yo F)Acc No.[id number]:09/20/2024 Progress Notes Patient: Avni Eric Provider: Diane Kaye MD :1950 A ge:74 Y S ex:Female Date:09/20/2024 Address:[address] [place] [address] Subjective: * Chief Complaints: * 1 month f/u * Electronic signature of Samson Kaye MD on 02/23/2025 at 02:08 AM MECHANICAL INSPECTOR Sign off status: Pending * Provider: Diane Kaye MD Date: 0 09/20/2024 Generated for Ifrahi ng/Fahareshg/eTransmitting on: 1 04/25/2024 02:08 AM MECHANICAL INSPECTOR
--- OUTSIDE RECORDS SUMMARY | 2024-10-27 08:40 | XMS_ITS ---
Author Organization [facility] Address [address] [place], [place] [address] Care Team Providers Care Police Matron Name Role Phone Dione Kaye Unavailable [phone] Results Component Value Reference Range Flag Notes CBC + AutoDiff 5 Reviewed date:10/31/2024 08:08:39 AM Interpretation: Performing Lab: Notes/Report: WBC 7.54 3.77-11.03 10*3/ul RBC 4.52 3.83-5.06 10*6/ul HGB 11.62 11.59-15.11 g/dL HCT 38.3 34.6-44.1 % MCV 84.7 80-98 fL MCH 25.7 26.6-33.5 pg L MCHC 30.3 32.9-35.4 g/dL LL RDW 16.9 12.6-15.6 % H RDW-SD 51.9 38.9-50.6 fL H PLATELETS 302.2 169-368 10^3/uL MPV 7.68 7.45-10.84 fL LYMPHOCYTES % 9.12 18.51-48.9 % L LYMPHOCYTES # 0.69 1.16-3.78 10^3/uL L MONOCYTES % 8.21 4.27-12.81 % MONOCYTES # 0.62 0.28-0.83 10^3/uL EOSINOPHILS % 2.98 0.71-6.09 % EOSINOPHILS # 0.22 0.04-0.42 10^3/uL BASOPHILS % 0.52 0.05-0.47 % H BASOPHILS # 0.04 0.00-0.03 10^3/uL H NEUTROPHILS % 79.17 41.35-72.27 % H NEUTROPHILS # 5.97 2.03-7.67 10^3/uL COMP. METABOLIC Reviewed date:10/31/2024 08:08:31 AM Interpretation: Performing Lab: Notes/Report: SODIUM 138 135-146 mmol/L POTASSIUM 4.5 3.5-5.3 mmol/L CHLORIDE 100 98-110 mmol/L CO2 26 20-32 mmol/L BUN 24 7-25 mg/dL CALCIUM 10.0 8.6-10.4 mg/dL CREATININE 0.77 0.60-1.00 mg/dL GLUCOSE 147 65-139 mg/dL H ALK PHOSPHATASE 49 37-153 IU/L ALT 9 6-29 IU/L AST 13 10-35 IU/L TOTAL BILIRUBIN 0.4 0.2-1.2 mg/dL ALBUMIN 4.4 3.6-5.1 g/dL TOTAL PROTEIN 6.6 6.1-8.1 g/dL eGFR 81.8 >60 mL/min BUN/CREA RATIO 31.2 9-28 Ratio H GLOBULIN 2.20 2.0-5.0 g/dL A/G RATIO 2.0 1.1-2.5 Ratio LIPID PANEL Reviewed date:10/31/2024 08:08:19 AM Interpretation: Performing Lab: Notes/Report: CHOLESTEROL 199 0-200 mg/dL LDL Direct 109.0 0-100 mg/dL H TRIGLYCERIDES 155 0-150 mg/dL H HDL CHOLESTEROL 75 50 mg/dL CHOL/HDL RATIO 2.65 TSH Reviewed date:10/31/2024 02:43:03 PM Interpretation: Performing Lab: Notes/Report: TSH 3.987 0.40-4.50 mIU/L A1c% Reviewed date:10/31/2024 08:08:11 AM Interpretation: Performing Lab: Notes/Report: HEMOGLOBIN A1c % 6.70 4.5-6.3 % H T3, FREE Reviewed date:10/31/2024 08:08:03 AM Interpretation: Performing Lab: Notes/Report: T3, FREE 3.77 2.3-4.2 pg/mL T4, FREE Reviewed date:10/31/2024 08:07:56 AM Interpretation: Performing Lab: Notes/Report: T4, FREE 0.77 0.8-1.8 ng/dL L INSULIN (561) Reviewed date:10/31/2024 08:07:47 AM Interpretation: Performing Lab:[place], [facility]-[id number] Savita Young, [id number] Tunde Carpio MD Notes/Report: FASTING:UNKNOWN FASTING: UNKNOWN INSULIN 13.9 N Reference Range < or = 18.4 Risk: Optimal < or = 18.4 Moderate NA High >18.4 Adult cardiovascular event risk category cut points (optimal, moderate, high) are based on Insulin Reference Interval studies performed at [facility] in 2021. REASON FOR VISIT BLOOD DRAW Medications Medication SIG (Take, Route, Frequency, Duration) Notes Start Date End Date Status Vitamin B-1 *Pick strength-form from SaySwap for eRX* Active Ozempic (0.25 or 0.5 MG/DOSE) 2 MG/3ML Solution Pen-injector as directed subcutaneously once a week Active Ozempic (1 MG/DOSE) 4 MG/3ML Solution Pen-injector 1 mg Subcutaneous once a week Active Propranolol HCl 10 MG Tablet 1 tablet on an empty stomach Orally every 12 hrs; Duration: 90 days Active dexAMETHasone 1 MG Tablet 1 tablet Orally at 10 pm night before 8 am cortisol; Duration: 10/27/2024 Active Escitalopram Oxalate 20 MG Tablet 1 tab(s) orally once a day Active dexAMETHasone 1 MG Tablet 1 tablet Orally at 10 pm night before; Duration: 02/25/2024 Active metFORMIN HCl ER 500 MG Tablet Extended Release 24 Hour 1 tablet with evening meal Orally twice daily with meals; Duration: days 02/25/2024 Active Dexcom G7 Sensor - Miscellaneous change sensor every 10 days; Duration: 02/25/2024 Active Atorvastatin Calcium 20 MG Tablet 1 tab(s) orally once a day Active Mirtazapine 15 MG Tablet 1 tab(s) orally once a day (at bedtime) Active metFORMIN HCl 500 MG Tablet 1 tab(s) orally 2 times a day Active Lisinopril 20 MG Tablet 1 tab(s) orally once a day Active Fish Oil 1200 MG Capsule 1 cap(s) orally 3 times a day Active Vitamin D (Ergocalciferol) 1.25 MG (07147 UT) Capsule 1 cap(s) orally once a week Active Problems Problem Type SNOMED Code ICD Code Onset Dates Problem Status W/U Status Risk Notes Problem Mixed hyperlipidemia (627532329) Mixed hyperlipidemia (E78.2) Active confirmed Encounters Encounter Location Date Provider Diagnosis [facility] [address] [place] [id number] 10/27/2024 Dione Kaye Mixed hyperlipidemia E78.2 ; Abnormal glucose R73.09 and Fatigue R53.83 Assessments Encounter Date Diagnosis (ICD Code) Assessment Notes Treatment Notes Treatment Clinical Notes Section Notes 10/27/2024 Mixed hyperlipidemia (ICD-10 - E78.2) 10/27/2024 Abnormal glucose (ICD-10 - R73.09) 10/27/2024 Fatigue (ICD-10 - R53.83) Plan Of Treatment Next Appt Details Provider Name:Dione Kaye, 03:40:00 PM, [address] [place] [address], [phone], Progress Notes * Marilu WILKERSONOB:1950 (74 yo F)Acc No.[id number]:10/27/2024 Patient: Milana zavalaAvni Provider: Diane Kaye MD :1950 A ge:74 Y S ex:Female Date:10/27/2024 Address:[address] [place] [address] Subjective: * Chief Complaints: * B LOOD DRAW * Medications: T akingOzempic (0.25 or 0.5 MG/DOSE) 2 MG/3ML Solution Pen-injector as directed subcutaneously once a week Ozempic (1 MG/DOSE) 4 MG/3ML Solution Pen-injector 1 mg Subcutaneous once a week Vitamin B-1 , Notes to Pharmacist: *Pick strength-form from SaySwap for eRX*Mirtazapine 15 MG Tablet 1 tab(s) orally once a day (at bedtime) Fish Oil 1200 MG Capsule 1 cap(s) orally 3 times a day Vitamin D (Ergocalciferol) 1.25 MG (11370 UT) Capsule 1 cap(s) orally once a week metFORMIN HCl 500 MG Tablet 1 tab(s) orally 2 times a day Lisinopril 20 MG Tablet 1 tab(s) orally once a day Atorvastatin Calcium 20 MG Tablet 1 tab(s) orally once a day Escitalopram Oxalate 20 MG Tablet 1 tab(s) orally once a day dexAMETHasone 1 MG Tablet 1 tablet Orally at 10 pm night before metFORMIN HCl ER 500 MG Tablet Extended Release 24 Hour 1 tablet with evening meal Orally twice daily with meals Dexcom G7 Sensor - Miscellaneous change sensor every 10 days Propranolol HCl 10 MG Tablet 1 tablet on an empty stomach Orally every 12 hrs dexAMETHasone 1 MG Tablet 1 tablet Orally at 10 pm night before 8 am cortisol Taking Ozempic (0.25 or 0.5 MG/DOSE) 2 MG/3ML Solution Pen-injector as directed subcutaneously once a week Taking Ozempic (1 MG/DOSE) 4 MG/3ML Solution Pen-injector 1 mg Subcutaneous once a week Taking Vitamin B-1 , Notes to Pharmacist: *Pick strength-form from SaySwap for eRX*Taking Mirtazapine 15 MG Tablet 1 tab(s) orally once a day (at bedtime) Taking Fish Oil 1200 MG Capsule 1 cap(s) orally 3 times a day Taking Vitamin D (Ergocalciferol) 1.25 MG (05106 UT) Capsule 1 cap(s) orally once a week Taking metFORMIN HCl 500 MG Tablet 1 tab(s) orally 2 times a day Taking Lisinopril 20 MG Tablet 1 tab(s) orally once a day Taking Atorvastatin Calcium 20 MG Tablet 1 tab(s) orally once a day Taking Escitalopram Oxalate 20 MG Tablet 1 tab(s) orally once a day Taking dexAMETHasone 1 MG Tablet 1 tablet Orally at 10 pm night before Taking metFORMIN HCl ER 500 MG Tablet Extended Release 24 Hour 1 tablet with evening meal Orally twice daily with meals Taking Dexcom G7 Sensor - Miscellaneous change sensor every 10 days Taking Propranolol HCl 10 MG Tablet 1 tablet on an empty stomach Orally every 12 hrs Taking dexAMETHasone 1 MG Tablet 1 tablet Orally at 10 pm night before 8 am cortisol Assessment: * Assessment: 1. A bnormal glucose - R73.09 (Primary) 2 . M ixed hyperlipidemia - E78.2? 3. F atigue - R53.83 Plan: * Treatment: Value Reference Range H EMOGLOBIN A1c % 6.70 H 4.5-6.3 - % * Dione Kaye 10/29/2024 03:16 :52 PM CDT >can we please let patient know her thyroid levels are very low so this can cause fatigue, weight gain and difficulty sleeping as well; I would recommend we start patient on unithroid 50 mcg daily and since she has a visit in one month we can reassess her thyroid to see how well she is doing; please take with water only 4-6 ozs and wait 1 hour to have food, other meds, tea, milk / coffee etc, thank you so much ?LAB: INSULIN (561) (Collection Date & Time - 10/27/2024 04:12 PM)* Value Reference Range I NSULIN 13.9 - uIU/mL * Dione Kaye 10/29/2024 03:16 :52 PM CDT >can we please let patient know her thyroid levels are very low so this can cause fatigue, weight gain and difficulty sleeping as well; I would recommend we start patient on unithroid 50 mcg daily and since she has a visit in one month we can reassess her thyroid to see how well she is doing; please take with water only 4-6 ozs and wait 1 hour to have food, other meds, tea, milk / coffee etc, thank you so much 2.?Mixed hyperlipidemia?LAB: LIPID PANEL (Collection Date & Time - 10/27/2024 01:57 PM)* Value Reference Range C HOLESTEROL 199 0-200 - mg/dL * L DL Direct 109.0 H 0-100 - mg/dL * T RIGLYCERIDES 155 H 0-150 - mg/dL * H DL CHOLESTEROL 75 50 - mg/dL * C HOL/HDL RATIO 2.65 - Ratio * Dione Kaye 10/29/2024 03:16 :52 PM CDT >can we please let patient know her thyroid levels are very low so this can cause fatigue, weight gain and difficulty sleeping as well; I would recommend we start patient on unithroid 50 mcg daily and since she has a visit in one month we can reassess her thyroid to see how well she is doing; please take with water only 4-6 ozs and wait 1 hour to have food, other meds, tea, milk / coffee etc, thank you so much 3.?Fatigue?LAB: CBC + AutoDiff 5 (Collection Date & Time - 10/27/2024 01:57 PM)* Value Reference Range W BC 7.54 3.77-11.03 - 10*3/ul * R BC 4.52 3.83-5.06 - 10*6/ul * H GB 11.62 11.59-15.11 - g/dL * H CT 38.3 34.6-44.1 - % * M CV 84.7 80-98 - fL * M CH 25.7 L 26.6-33.5 - pg * M CHC 30.3 LL 32.9-35.4 - g/dL * R DW 16.9 H 12.6-15.6 - % * R DW-SD 51.9 H 38.9-50.6 - fL * P LATELETS 302.2 169-368 - 10^3/uL * M PV 7.68 7.45-10.84 - fL * L YMPHOCYTES % 9.12 L 18.51-48.9 - % * L YMPHOCYTES # 0.69 L 1.16-3.78 - 10^3/uL * M ONOCYTES % 8.21 4.27-12.81 - % * M ONOCYTES # 0.62 0.28-0.83 - 10^3/uL * E OSINOPHILS % 2.98 0.71-6.09 - % * E OSINOPHILS # 0.22 0.04-0.42 - 10^3/uL * B ASOPHILS % 0.52 H 0.05-0.47 - % * B ASOPHILS # 0.04 H 0.00-0.03 - 10^3/uL * N EUTROPHILS % 79.17 H 41.35-72.27 - % * N EUTROPHILS # 5.97 2.03-7.67 - 10^3/uL * Dione Kaye 10/29/2024 03:16 :52 PM CDT >can we please let patient know her thyroid levels are very low so this can cause fatigue, weight gain and difficulty sleeping as well; I would recommend we start patient on unithroid 50 mcg daily and since she has a visit in one month we can reassess her thyroid to see how well she is doing; please take with water only 4-6 ozs and wait 1 hour to have food, other meds, tea, milk / coffee etc, thank you so much ?LAB: COMP. METABOLIC (Collection Date & Time - 10/27/2024 01:57 PM)* Value Reference Range S ODIUM 138 135-146 - mmol/L * P OTASSIUM 4.5 3.5-5.3 - mmol/L * C HLORIDE 100 98-110 - mmol/L * C O2 26 20-32 - mmol/L * B UN 24 7-25 - mg/dL * C ALCIUM 10.0 8.6-10.4 - mg/dL * C REATININE 0.77 0.60-1.00 - mg/dL * G LUCOSE 147 H 65-139 - mg/dL * A LK PHOSPHATASE 49 37-153 - IU/L * A LT 9 6-29 - IU/L * A ST 13 10-35 - IU/L * T OTAL BILIRUBIN 0.4 0.2-1.2 - mg/dL * A LBUMIN 4.4 3.6-5.1 - g/dL * T OTAL PROTEIN 6.6 6.1-8.1 - g/dL * Dione Kaye 10/29/2024 03:16 :52 PM CDT >can we please let patient know her thyroid levels are very low so this can cause fatigue, weight gain and difficulty sleeping as well; I would recommend we start patient on unithroid 50 mcg daily and since she has a visit in one month we can reassess her thyroid to see how well she is doing; please take with water only 4-6 ozs and wait 1 hour to have food, other meds, tea, milk / coffee etc, thank you so much ?LAB: T4, FREE (Collection Date & Time - 10/27/2024 01:57 PM)* Value Reference Range T 4, FREE 0.77 L 0.8-1.8 - ng/dL * Dione Kaye 10/29/2024 03:16 :52 PM CDT >can we please let patient know her thyroid levels are very low so this can cause fatigue, weight gain and difficulty sleeping as well; I would recommend we start patient on unithroid 50 mcg daily and since she has a visit in one month we can reassess her thyroid to see how well she is doing; please take with water only 4-6 ozs and wait 1 hour to have food, other meds, tea, milk / coffee etc, thank you so much ?LAB: T3, FREE (Collection Date & Time - 10/27/2024 01:57 PM)* Value Reference Range T 3, FREE 3.77 2.3-4.2 - pg/mL * Dione Kaye 10/29/2024 03:16 :52 PM CDT >can we please let patient know her thyroid levels are very low so this can cause fatigue, weight gain and difficulty sleeping as well; I would recommend we start patient on unithroid 50 mcg daily and since she has a visit in one month we can reassess her thyroid to see how well she is doing; please take with water only 4-6 ozs and wait 1 hour to have food, other meds, tea, milk / coffee etc, thank you so much ?LAB: TSH (Collection Date & Time - 10/27/2024 01:57 PM)* Value Reference Range T SH 3.987 0.40-4.50 - mIU/L * Dione Kaye 10/29/2024 03:16 :52 PM CDT >can we please let patient know her thyroid levels are very low so this can cause fatigue, weight gain and difficulty sleeping as well; I would recommend we start patient on unithroid 50 mcg daily and since she has a visit in one month we can reassess her thyroid to see how well she is doing; please take with water only 4-6 ozs and wait 1 hour to have food, other meds, tea, milk / coffee etc, thank you so muchAngi Traylor 10/31/2024 02:28:26 PM CDT >left pt a vm to call back.Angi Traylor 10/31/2024 02:34:51 PM CDT >patient aware. will send unithroid 50mcg to patients pharmacy. ?LAB: INSULIN (561) (Collection Date & Time - 10/27/2024 04:12 PM)* Value Reference Range I NSULIN 13.9 - uIU/mL * Dione Kaye 10/29/2024 03:16 :52 PM CDT >can we please let patient know her thyroid levels are very low so this can cause fatigue, weight gain and difficulty sleeping as well; I would recommend we start patient on unithroid 50 mcg daily and since she has a visit in one month we can reassess her thyroid to see how well she is doing; please take with water only 4-6 ozs and wait 1 hour to have food, other meds, tea, milk / coffee etc, thank you so much * Procedure Codes: 8 5025 COMPLETE CBC W/AUTO DIFF [id number] FREE ASSAY (FT-3)81816 ASSAY OF FREE [id number] COMPREHEN METABOLIC [id number] LIPID [id number] ASSAY THYROID STIM [id number] GLYCATED HEMOGLOBIN [id number] VENIPUNCT, ROUTINE*32886 VENIPUNCT, At Visit Billing Information: * Procedure Codes: 23445 COMPLETE CBC W/AUTO DIFF WBC. 95774 FREE ASSAY (FT-3). 71751 ASSAY OF FREE THYROXINE. 41683 COMPREHEN METABOLIC PANEL. 47061 LIPID PANEL. 59276 ASSAY THYROID STIM HORMONE. 84683 GLYCATED HEMOGLOBIN TEST. 23110 VENIPUNCT, ROUTINE*. 11271 VENIPUNCT, At Visit. * Electronic signature of Samson Kaye MD on 02/23/2025 at 02:07 AM CHEMISTRY PHYSICS TEACHER Sign off status: Pending * Provider: Diane Kaye MD Date: 0 10/27/2024 Generated for Brian marshall/Gail/eTransmitting on: 04/25/2024 02:07 AM CHEMISTRY PHYSICS TEACHER
--- OUTSIDE RECORDS SUMMARY | 2024-11-28 08:20 | XMS_ITS ---
Author Organization [facility] Address [address] [place] [address] Care Team Prov[address] Care Court Administrator Name Role Phone Dione Kaye Unavailable [phone] REASON FOR VISIT 1 month f/u Encounters Encounter Location Date Provider Diagnosis [facility] Dr. Kaye [address] [place] [phone] 11/28/2024 Dione Kaye Plan Of Treatment Next Appt Details Provider Name:Dione Kaye, 03:40:00 PM, [address] [place] [address], [phone], Progress Notes * Marilu WILKERSONOB:1950 (74 yo F)Acc No.[id number]:11/28/2024 Progress Notes Patient: Avni Eric Provider: Diane Kaye MD :1950 A ge:74 Y S ex:Female Date:11/28/2024 Address:[address] [place] [address] Subjective: * Chief Complaints: * 1 month f/u * Electronic signature of Samson Kaye MD on 02/23/2025 at 02:07 AM PUBLIC HEALTH DIETITIAN Sign off status: Pending * Provider: Diane Kaye MD Date: 0 11/28/2024 Generated for Ifrahi ng/Faxing/eTransmitting on: 04/25/2024 02:07 AM PUBLIC HEALTH DIETITIAN
[2025-02-09 12:29] VITALS: BMI 32.0
--- OUTSIDE RECORDS SUMMARY | 2025-02-23 02:07 | XMS_ITS | Data Portability ---
Author Organization [place] [facility] [employer], Main Office Address [address] [place] [id number] Care Team Providers Care Color Shop Helper Name Role Phone PARISH VELÁZQUEZ Primary Care Provider PARISH VELÁZQUEZ Referring Provider Assessment Encounter Date Assessment Date Assessment LastModified by Organization Details LastModified Time 12/15/2022 12/15/2022 Impression: Patient has severe lateral compartment osteoarthritis left. Her valgus deformity is not as severe as on the right and we may be able to balance the knee without resorting to constrained implants but we will have those available in case they are needed. She does have a significant 15 degree flexion contracture which will make balancing of the knee little bit difficult. I have reviewed the risks of surgery with her in detail. I discussed with her again the risk of stretch injury to the peroneal nerve which can result in footdrop in need for a brace to support foot due to paralysis of the muscles that hold the foot dorsiflexed with walking and this also results in some numbness in the top of the foot and lateral calf. Her valgus deformity and flexion contracture put her at some risk for this complication as straightening the knee does put stretch on the nerve. I reminded her that there will be numbness lateral to the incision and the patient's have difficulty kneeling many times after knee replacement and certain percentage of patients complain of anterior knee soreness. Risk of infection blood clots instability stiffness fracture nerve injury bleeding transfusion component loosening need for revision surgery and medical complications such as heart attack stroke pulmonary embolism and were reviewed. She states she has had no medical problems or illnesses since her surgery in August. She does have diabetes and is therefore at some increased risk for infection and extended oral antibiotics after surgery would be indicated. She is taking Ozempic and I have explained that she will need to skip the does in the 7 days prior to the surgery has otherwise she will may have a stomach full of food time of her surgery which increases risk of aspiration. I would like her to speak with Dr. Velázquez regarding this and make a determination of whether she needs to have her diabetes medications adjusted while she is off the Ozempic for that week. 40 minutes were spent in total care this patient more than half of this time spent in [id number] care. [email or web address] Not available 12/21/2022 10:30:50 01/28/2023 01/28/2023 HPI: Patient returns. She is now 14 days out from her left total knee arthroplasty. Overall doing well. She is doing therapy here at our office. She has finished up her antibiotics. She has been taking pain pills regularly. Refill these for today. She is on meloxicam 7.5 mg daily. Physical exam: Patient's incision is well healed. Range motion is from 5-120 degrees today. There is no increased swelling in either lower extremity. She is walking with a walker. Impression: Patient is doing well 14 days out left total knee arthroplasty. She needs to continue to work hard on getting her full extension back. She knows chair exercises is going to work harder at this. I have refilled her pain pills today. She will transition to the baby aspirin twice a day once the Eliquis has been completed. At that point she may increase her meloxicam twice a day. Instructions were written for her. She may transition to a cane as her comfort allows. We will see her back in 2 weeks for re-evaluation. Not available 01/28/2023 12:07:46 02/09/2023 02/09/2023 HPI: Patient returns. She is 1 month out from left total knee arthroplasty. Overall doing relatively well. She did not follow instructions that were written to her last time she was here. She has not been taking baby aspirin twice a day. She remains doing her exercises at home as well as outpatient therapy and is making good progress with her motion. Overall pain is mild. Physical exam: Patient is walking with a cane today. Incision is well healed. There is no increased swelling in the either lower extremity. Range of motion is from approximately 4 to 135 . She has the same degree of flexion contracture on the left she has on the right which was done in August of this year. Impression: Patient is doing well 1 month out left total knee arthroplasty. I did recommend that she start taking a baby aspirin twice a day and I have written instructions again today. She will continue with her exercises. We will see her back in 2 weeks with x-rays of the knee. Not available 02/09/2023 16:32:36 02/23/2023 02/23/2023 HPI: Patient returns. She is 6 weeks out from left total knee arthroplasty. She continues to improve. She still having difficult time getting her full extension in the knee but her flexion is doing very well. She is doing therapy at our office. She has been doing chair exercises home but only twice a day. Physical exam: Patient's incision is well healed. Range motion is approximately 4 to 140. Excellent stability in both flexion extension. No increased swelling in either lower extremity. She is walking with a cane. Impression: Patient is doing relatively well 6 weeks out left total knee arthroplasty. She can stop the baby aspirin twice a day. She is going to continue with outpatient therapy. I want her to work on her extension try to get most of it back. She has to work a little harder on the chair exercise especially doing it more times per day and she understands. We will see her back in 3 weeks for re-evaluation. Not available 02/23/2023 15:39:04 03/16/2023 03/16/2023 HPI: patient returns. She is now 9 weeks out from left total knee arthroplasty. She was going to therapy here at her office and get a 3 x 10 board last week. She uses this is in therapy but forgot how the straps worked as well as the bladder to be placed on the leg. She does have with her today is going to good and therapy. She is still working on her extension. Physical exam: Patient is walking well today without assistance. Incision is well healed. No effusion in the knee. Range of motion is approximately 7 and flexes to 135 very easily. No increased swelling in either lower extremity. Excellent stability in the knee. Impression: Patient is still lacking in her extension in the left knee. She does 3 x 10 for now and is guarded to talk therapy today and then start using it on a daily basis. Also encouraged her to continue with her chair exercise for extension. Flexion is doing very well. She has no she has to put more effort into getting her extension straight and is going to do this. At this point we will plan on seeing her back at her 1 year anniversary or sooner if she has problems. [email or web address] Not available 03/16/2023 14:22:25 Plan of Treatment Reminders Order Date Submit Date Provider Last Modified By Organization Details Last Modified Time Details Appointments None recorded. Lab None recorded. Referral None recorded. Procedures None recorded. Surgeries None recorded. Imaging XR, knee 2022 023 [email or web address] [facility] [place], [address], [place], [address], 10:41:15 Medication Orders oxycodone 5 mg tablet 2022 023 [place] [address] [id number], [address] , [place], [place], [id number], 13:57:30 Patient TargetsNo targets recorded. Patient InstructionsNo instructions recorded. Reason for Referral None Reported. Results Created Date Observation Date Name Description Value Unit Range Abnormal Flag Note LastModifiedBy Organization Detail LastModifiedTime 01/16/2001/14/2023 XR, knee No observ ation record ed. [address], [place], [address], 01/16/2023 13:57:23 01/16/2001/15/2023 XR, chest No observ ation record ed. [address], [place], [address], 01/16/2023 13:57:42 01/16/2001/15/2023 XR, chest No observ ation record ed. [address], [place], [address], 01/16/2023 13:58:20 01/17/20 23 01/16/2023 CT, chest , w/ contr ast No observ ation record ed. [place] [address] [facility] [address], [place], [address], 01/16/2023 13:59:09 02/24/20 23 XR, knee No observ ation record ed. [email or web address] [facility] [address], [place], [address], 02/23/2023 15:37:31 Result Notes None recorded. Problems Name Problem SNOMED Code Status Onset Date Resolution Date Notes Provider Name and Address Organization Details Recorded Time Osteoarthr itis 692275091 Active Not Available [facility] 3 01:10:38 Pain of bilateral knee joints 7118249215995 04 Active 2021 Not Available [facility] 3 01:10:38 Essential hypertensi on 13964729 Active 2021 Not Available [facility] 3 01:10:38 Type 2 diabetes mellitus without complicati on 656899581 Active 2021 Not Available [facility] 3 01:10:38 Vitamin D deficiency 86584810 Active 2021 Not Available [facility] 3 01:10:38 Dyslipidem ia 816468379 Active 2021 Not Available [facility] 3 01:10:38 Uncontroll ed type 2 diabetes mellitus 519997565 Active 2022 Dione Kaye MD [address], [place] [address], [place], [address] , [employer] [facility] [employer] 3 13:10:31 Menopausal symptom 51510131 Active 2022 Dione Kaye MD [address], [facility] [address], [place], [address] , [employer] 3 13:13:17 Bilateral osteoarthr itis of knees 4021404694533 07 Active 2022 ASHLEY Romo null, [place] [employer] [facility] [employer] 3 17:18:03 Osteoarthr itis of right knee joint 3900166669357 00 Active 2022 Susi Goode CMA null, [place] [facility] 3 11:37:12 Well controlled type 2 diabetes mellitus 375282207 Active 2022 Dione Kaye MD [address] [facility], [facility] [address], [place], [address] , [facility] 3 16:18:43 Pain of left knee joint 8506300473843 07 Active 2022 Maggie Nielson RMLyly null, [place] [facility] [place] [facility] 3 16:02:31 Arthritis 5572464 Active 2022 Susi Goode CMA null, [place] [facility] 3 15:34:59 Osteoarthr itis of left knee joint 9818342922505 09 Active 2022 Susi Goode CMA null, [place] [facility] 3 15:35:08 Problem Notes None recorded. Procedures Surgical History Date Name Laterality Status Provider Name and Address Organization Details Recorded Time 09/05/19 23 total replacement of right knee joint completed Nichol Wiley [place] [facility] 11/07/2022 16:10:38 09/26/18 94 delivery completed Not Available [facility] 06/04/2022 01:06:21 Imaging Results None recorded. Procedure Notes None recorded. Medical Equipment None Reported. Allergies Allergen ID Allergen Name Allergen Category Reaction Reaction Severity Criticality Documentation Date Start Date Code Code System Note Provider Name and Address Organization Details Recorded Time 1824 Substance with sulfonami de structure and antibacte rial mechanism of action (substanc e) medicatio n Not available Not available Not available 06/04/2022 13116 8003 SNOMED Not Available [facility] 3 01:16:22 1825 Product containin g penicilli n (product) medicatio n Not available Not available Not available 06/04/2022 88628 8001 SNOMED Not Available [facility] 3 01:16:22 Medications Name Sig Start Date Stop Date Status Note LastModified by Organization Details LastModified Time metformin 500 mg tablet 06/12 completed Not Available Not Available Not Available atorvasta tin 20 mg tablet TAKE 1 TABLET BY MOUTH EVERY OTHER DAY active Not Available Not Available No t Available clindamyc in HCl 300 mg capsule 02/16 completed Not Available Not Available Not Available polyethyl debora glycol 3350 17 gram oral powder packet 09/22 completed Not Available Not Available Not Available pravastat in 40 mg tablet TAKE 1 TABLET BY MOUTH DAILY 04/08 completed Not Available Not Available Not Available hydrocodo ne 5 mg-acetam inophen 325 mg tablet TAKE 1 TABLET BY MOUTH EVERY 6 HOURS NEEDED active Not Available Not Available No t Available lisinopri l 20 mg tablet TAKE 1 TABLET BY MOUTH DAILY active Not Available Not Available No t Available acetamino phen 500 mg tablet TAKE 2 TABLETS BY MOUTH EVERY 6 HOURS 09/22 completed Not Available Not Available Not Available meloxicam 7.5 mg tablet TAKE 1 TABLET BY MOUTH EVERY DAY 03/16 completed Not Available Not Available Not Available Kenalog 10 mg/mL suspensio n for injection In office injectio n administ ered by the provider 01/08 completed ND: [id number] 4-20 Not Available Not Available Not Available dexametha sone 1 mg tablet Take 1 tablet as needed by oral route at bedtime for 1 day. active take dexa tablet at 10 pm night before 8 am cortisol Not Available Not Available Not Available ramipril 2.5 mg capsule TAKE 1 CAPSULE BY MOUTH DAILY 10/21 completed Not Available Not Available Not Available mirtazapi ne 15 mg tablet TAKE 1 TABLET BY MOUTH AT BEDTIME active Not Available Not Available No t Available ergocalci ferol (vitamin D2) 1,250 mcg (50,000 unit) capsule TAKE ONE CAPSULE BY MOUTH EVERY WEEK active Not Available Not Available No t Available zolpidem 10 mg tablet 01/08 completed Not Available Not Available Not Available metformin ER 500 mg tablet,ex tended release 24 hr TAKE 2 TABLETS BY MOUTH TWICE DAILY WITH MEALS active Not Available Not Available No t Available doxycycli ne hyclate 100 mg tablet TAKE 1 TABLET BY MOUTH EVERY 12 HOURS 03/16 completed Not Available Not Available Not Available Hibiclens 4 % topical liquid SAMARA TOPICALL Y AA QD. START 3 DAYS PRIOR TO PROCEDUR E TO OPERATIV E EXTREMIT Y IN THE SHOWER 01/08 completed Not Available Not Available Not Available ramipril 5 mg capsule 01/08 completed Not Available Not Available Not Available oxycodone 5 mg tablet TAKE 1 TABLET BY MOUTH EVERY 4 HOURS NEEDED 03/16 completed Not Available Not Available Not Available neomycin- polymyxin -hydrocor t 3.5 mg-10,000 unit/mL-1 % ear drops,kady p 01/08 completed Not Available Not Available Not Available escitalop lana 20 mg tablet TAKE 1 TABLET BY MOUTH DAILY active Not Available Not Available No t Available Vitamin C 03/16 completed Not Available Not Available Not Available Fish Oil 09/08 completed Not Available Not Available Not Available Cinnamon 10/06 completed Not Available Not Available Not Available lidocaine (PF) 10 mg/mL (1 %) injection solution In office injectio n administ ered by the provider 01/08 completed [facility]: 0409-427 6-17 Not Available Not Available Not Available vitamin B12 500 mcg-folic acid 400 mcg tablet Take by oral route. active Not Available Not Available No t Available Micro Thin Lancets 33 gauge 01/25 completed Not Available Not Available Not Available fenugreek seed extract 4 capsules a day 01/08 completed Not Available Not Available Not Available Vitamin D2 09/14 completed Not Available Not Available Not Available Eliquis 2.5 mg tablet TAKE 1 TABLET BY MOUTH EVERY 12 HOURS 02/23 completed Not Available Not Available Not Available Stimulant Laxative Plus 8.6 mg-50 mg tablet TAKE 2 TABLETS BY MOUTH TWICE DAILY 09/22 completed Not Available Not Available Not Available Restasis MultiDose 0.05 % eye drops 01/25 completed Not Available Not Available Not Available Flucelvax Quad 7713-8147 (PF) 60 mcg (15 mcg x 4)/0.5 mL IM syringe TO BE ADMINIST ERED BY PHARMACI ST FOR IMMUNIZA TION 01/25 completed Not Available Not Available Not Available Bydureon BCise 2 mg/0.85 mL subcutane ous auto-inje ctor INJECT 1 PEN SUBCUTAN EOUSLY ONCE A WEEK IN THE MORNING 10/21 completed Not Available Not Available Not Available Ozempic 0.25 mg or 0.5 mg (2 mg/1.5 mL) subcutane ous pen injector INJECT 0.5 MG UNDER THE SKIN EVERY WEEK WITH A MEAL active Not Available Not Available No t Available OneTouch Ultra Blue Test Strip 01/25 completed Not Available Not Available Not Available glucomann an 09/08 completed Not Available Not Available Not Available Vitals Date Recorded Body height Body mass index (BMI) Body weight Provider Name and Address Organization Details Last Updated DateTime 12/15/2022 162.56 cm 31.8 kg/m2 88072.59 g Maggie Nielson [facility] [employer] [facility] 12/15/2022 16:05:21 Date Recorded Body height Provider Name an d Address Organization Details Last Updated DateTime 01/28/2023 162.56 cm Liss Mehta [facility] [employer] [facility] 01/28/2023 09:46:17 Date Recorded Body height Provider Name an d Address Organization Details Last Updated DateTime 02/09/2023 162.56 cm Maggie Nielson [facility] [employer] [facility] 02/09/2023 16:11:59 Date Recorded Body height Provider Name an d Address Organization Details Last Updated DateTime 02/23/[address]23 [address] [facility] [employer] [facility] 02/23/2023 15:00:41 Date Recorded Body height Provider Name an d Address Organization Details Last Updated DateTime 03/16/[address] [facility] [employer] [facility] 03/16/2023 13:57:08 Social History Question Answer Notes LastModified by Organizat ion Details LastModified Time Tobacco Smoking Status Never Smoker [email or web address] [employer] [facility] 12/15/2022 15:51:56 Are You Blind Or Do You Have Difficulty Seeing? No Information n ot available 12/15/2022 What Is Your Level Of Caffeine Consumption? Occasional [id number] Information not available 06/04/2022 How Much Tobacco Do You Chew? None [id number] Information not available 06/04/2022 In The 14 Days Before Symptom Onset, Have You Had Close Contact With A Laboratory-confirm ed COVID-19 While That Case Was Ill? No [email or web address] Information n ot available 12/15/2022 In The 14 Days Before Symptom Onset, Have You Had Close Contact With A Person Who Is Under Investigation For COVID-19 While That Person Was Ill? No [email or web address] Information not available 12/15/2022 Are You Deaf Or Do You Have Serious Difficulty Hearing? No [email or web address] Information not available 12/15/2022 What Type Of Diet Are You Following? REGULAR [id number] Information not available 06/04/2022 Which Illicit Or Recreational Drugs Have You Used? None [email or web address] Information not available 12/15/2022 What Is Your Relationship Status? [id number] Information not available 06/04/2022 How Much Tobacco Do You Smoke? No [id number] Information not available 06/04/2022 Have You Recently Traveled Abroad? No [email or web address] Information not available 12/15/2022 Do You Have Difficulty Walking Or Climbing Stairs? No Information not available 12/15/2022 Do You Have Any Dietary Restrictions? No [email or web address] Information not available 12/15/2022 Sex: Female Functional Status Question Answer Note LastModified by Organizat ion Details LastModified Time What is your level of alcohol consumption? None [id number] Information not available 06/04/2022 Do you have transportation difficulties? No [email or web address] Information not available 12/15/2022 Are you able to walk independently without assistance or assistive devices? YESWOREST [email or web address] Information not available 12/15/2022 Do you have difficulty doing errands alone? No [email or web address] Information not available 12/15/2022 Are you able to care for yourself independently? Yes [email or web address] Information not available 12/15/2022 What is your occupation? retired [email or web address] Information not available 12/15/2022 Do you have difficulty dressing, bathing, grooming, or toileting? No [email or web address] Information not available 12/15/2022 Do you or have you ever used e-cigarettes or vape? Never used electronic cigarettes [email or web address] Information not available 12/15/2022 Mental Status Question Answer Note LastModified by Organization D etails LastModified Time Do you have difficulty concentrating, remembering or making decisions? No [email or web address] Information no t available 12/15/2022 Family History Relationship Description Onset Age of this Age Resolved Age Notes LastModified by Organization Details LastModified Time Maternal Uncle Depressive disorder [id number] Not available 06/04/2022 01:06:23 Maternal Grandmother Depressive disorder [id number] Not available 06/04/2022 01:06:23 Son Depressive disorder [id number] Not available 06/04/2022 01:06:23 Father Alcoholism [email or web address] Not avail able 12/15/2022 15:51:55 Father Cerebrovascu lar accident [email or web address] Not available 15:51:55 Brother Alcoholism [email or web address] Not avai lable 12/15/2022 15:51:55 Medical History Condition Response DIABETES, TYPE Y DEPRESSION (INCLUDING POST ) Y ASTHMA N Gynecological HistoryNo gynecological history recorded. Obstetrics History GPAL:G 0 P 0 0 0 0 Past Encounters Encounter ID Performer Location Encounter Start Date Encounter Closed Date Diagnosis/Indication Diagnosis SNOMED-CT Code Diagnosis ICD10 Code Diagnosis IMO Codes Diagnosis Note [id number] Dione Kaye MD [facility] [address] [place] [address] 06/12/2020 00:00:00 06/12/2020 18:38:16 [id number] Dione Kaye MD [facility] [address] [place] [address] 09/14/2020 00:00:00 09/14/2020 17:06:17 [id number] Dinoe Kaye MD [facility] [address] [place] [address] 04/08/2021 00:00:00 04/08/2021 17:13:17 [id number] Chao Peres MD [facility] [address] [place] [address] 10/21/2021 00:00:00 10/22/2021 22:52:42 [id number] [facility] [place] [address] [place] [address] 02/06/2022 00:00:00 02/06/2022 19:21:02 [id number] Dione Kaye MD [facility] [place] [address] [place] [address] 07/11/2022 12:42:24 07/11/2022 13:22:10 Uncontrolled type 2 diabetes mellitus 953559129 E11.65 A1C 7.4% down from 8.2%- continue metformin for insulin sensitizat ion. Continue ozempic but uptitrate to 0.5 mg once weekly- provided 2 month samples- she applied for patient assistance but just approved 3 weeks ago so may be a few months before shipment. Discussed carb counting and how to read food labels. Recommende d patient to utilize the diabetesfo [employer] from the ADA website to help with food preparatio n as this presents ideal carb content per meal so this will make carb counting much easier for patient. Recommende d he incorporat e natural insulin financial planning consultant s such as pears, apples, cinnamon, yarely and sweet potatoes to help mobilize his endogenous insulin. Recommende d up to 150 minutes of moderate level activity/e xercise weekly. Dyslipidemia 078719756 E 78.5 continue statin therapy as LDL no in ideal in range. Patient encouraged to restrict transfatty acids and polysatura josie fats. She has had a poor diet recently and plans to stick to more monounsatu rated fats/ nonstarchy carbs. Will follow Menopausal symptom 71315 002 N95.1 send for bone density scan to screen for bone loss- DST from 2020 at 0.8 ug/dL - if any bone loss will repeat DST. Spent up to 25 minutes preparing to see the patient (eg, review of tests), obtaining and/or reviewing separately obtained history, performing a medically appropriat e examinatio n and evaluation , counseling and educating the patient, ordering medication s, tests, along with documentin g clinical informatio n in the electronic health record, independen tly interpreti ng results and communicat ing results to the patient. RTC in 4 months. Patient was provided a handwritte n lab order which contains our fax number. If she chooses to go outside of the [facility] system to obtain labwork she was advised to provide our fax number and my informatio n to the lab she will be obtaining labwork from in order to have her labs properly forwarded over for me to review so there is no loss of follow up due to use of outside network. She was also advised to contact our clinic informing us that she has completed her labwork so we are aware we will need to reach out to the appropriat e laboratory to request her results be forwarded to us so I might have the ability to review and make further medical decision making in her case. She voiced understand ing. [id number] Chao Peres MD [facility] [address] [place] [address] 07/28/2022 17:15:30 08/04/2022 10:44:33 Bilateral osteoarthritis of knees [id number] M17.0 [id number] Chao Peres MD [facility] [address] [place] [address] 09/08/2022 16:58:26 09/08/2022 18:09:34 History of right total knee replacement [id number] Z96.651 [id number] Chao Peres MD [facility] [address] [place] [address] 09/22/2022 17:14:45 09/22/2022 17:43:29 History of right total knee replacement [id number] Z96.651 [id number] Chao Peres MD [facility] [address] [place] [address] 10/06/2022 17:18:55 10/06/2022 18:04:57 History of right total knee replacement [id number] Z96.651 [id number] Dinoe Kaye MD [facility] [address] [place] [address] 11/07/2022 15:43:22 11/07/2022 16:29:50 Well controlled type 2 diabetes mellitus [id number] E11.9 a1c of 6.2% down from 7% range- continue on ozempic 0.5 mg once weekly as patient has lost over 30 pounds and tolerating well- continue metformin for insulin sensitizat ion. Discussed carb counting and how to read food labels. Recommende d patient to utilize the diabetesfo [employer]right[employer] from the ADA website to help with food preparatio n as this presents ideal carb content per meal so this will make carb counting much easier for patient. Recommende d she incorporat e natural insulin financial planning consultant s such as pears, apples, cinnamon, yarely and sweet potatoes to help mobilize her endogenous insulin. Recommende d up to 150 minutes of moderate level activity/e xercise weekly. Ozempic approved through patient assistance - new refill to arrive at or around 12/24/22. Dyslipidemia [id number] E 78.5 continue statin therapy as LDL no in ideal in range. Patient encouraged to restrict transfatty acids and polysatura josie fats. She has had a poor diet recently and plans to stick to more monounsatu rated fats/ nonstarchy carbs. Spent up to 25 minutes preparing to see the patient (eg, review of tests), obtaining and/or reviewing separately obtained history, performing a medically appropriat e examinatio n and evaluation , counseling and educating the patient, ordering medication s, tests, along with documentin g clinical informatio n in the electronic health record, independen tly interpreti ng results and communicat ing results to the patient. Patient can be followed by PCP - she/he is aware of my resignatio n and last day of January 16. If needed his/her PCP can refer patient to another endocrinol ogist in the area. All questions /concerns answered and refills necessary at visit today. [id number] Chao Peres MD [facility] [place] [address] [place] [address] 12/15/2022 15:50:03 12/22/2022 09:46:13 Pain of left knee joint [id number] M25.232 [id number] Chao Peres MD [facility] [place] [address] [place] [address] 01/28/2023 09:28:22 01/28/2023 12:18:09 Postoperative visit [id number] Z09 [id number] Chao Peres MD [facility] [place] [address] [place] [address] 02/09/2023 16:08:41 02/09/2023 17:31:17 History of left total knee replacement [id number] Z96.632 [id number] Chao Peres MD [facility] [place] [address] [place] [address] 02/23/2023 14:57:34 02/23/2023 15:40:55 History of left total knee replacement [id number] Z96.529 [id number] Chao Peres MD [facility] [place] [address] [place] [address] 03/16/2023 13:52:45 03/16/2023 15:01:11 History of left total knee replacement [id number] Z96.652 Health Concerns Section Related Observation LastModified by Organization Detai ls LastModified Time None Recorded Concern Status LastModified by Organization Details LastModified Time None Recorded Advance Directives Directive None Recorded Payers Insurance Date Sequence Insurance Name Policy Number Policy Roman Covered Member ID Roman Member ID Guarantor Name 03/16/2023 1 [place] Ashlieregina Lyly Garth [id number] Avni Liang 03/13/2023 2 [employer] (MEDICARE SUPPLEMENT) Avni Liang [id number] Avni Liang Notes Date Note Type Note Provider Name and Address Organization Details Recorded Time 12/15/2022 text/html patient returns. She would like to schedule left total knee replacement. Her chief complaint is lateral left knee pain. She underwent right total knee arthroplasty on August 27, 3 and half months ago. She has occasional mild soreness but otherwise she feels she is doing very well and much better than before surgery. She had a significant grade 2 valgus deformity in the right knee and flexion contracture and increase constraint with SSK implants were utilized. She had x-rays on October 06, 2022 which showed on the AP view 10.5 of anatomic axis valgus alignment severe lateral compartment osteoarthritis change. No widening of medial joint space at that time. Chao Peres MD [address] [facility], [facility] [address], [place], [address], [place] [facility] 12/21/2022 10:31:03 OBGyn Episode No OBEpisode recorded.
--- OUTSIDE RECORDS SUMMARY | 2025-02-23 02:08 | XMS_ITS | Clinical Summary ---
Author Organization [facility] Address [address] [place] [address] Care Team Providers Care Pay Station Attendant Name Role Phone Christina Colvin MD Primary Care Provider [phone] Allergies Active Allergy Reactions Criticality Noted Date Comments Penicillins Anaphylaxis High 04/09/2022 Sulfa (Sulfonamide Antibiotics) Anaphylaxis High 07/2022 Medications escitalopram (LEXAPRO) 20 mg tablet escitalopram 20 mg tablet TAKE 1 TABLET BY MOUTH DAILY Active mirtazapine (REMERON) 15 mg tablet mirtazapine 15 mg tablet TAKE 1 TABLET BY MOUTH AT BEDTIME Active atorvastatin (LIPITOR) 20 mg tablet atorvastatin 20 mg tablet TAKE 1 TABLET BY MOUTH EVERY OTHER DAY AT BEDTIME Active lisinopriL (PRINIVIL,ZEST RIL) 20 mg tablet lisinopril 20 mg tablet TAKE 1 TABLET BY MOUTH EVERY DAY IN THE MORNING Active metFORMIN XR (GLUCOPHAGE XR) 500 mg 24 hr tablet metformin ER 500 mg tablet,extended release 24 hr TAKE 2 TABLETS BY MOUTH TWICE DAILY WITH MEALS Active ergocalciferol (VITAMIN D) 50,000 unit capsule ergocalciferol (vitamin D2) 1,250 mcg (50,000 unit) capsule TAKE ONE CAPSULE BY MOUTH EVERY WEEK Active semaglutide (Ozempic) 0.25 mg or 0.5 mg(2 mg/1.5 mL) pen injector injection Ozempic 0.25 mg or 0.5 mg (2 mg/1.5 mL) subcutaneous pen injector INJECT .5 MG EVERY WEEK BY SUBCUTANEOUS ROUTE WITH MEALS FOR 28 DAYS Active Active Problems No known active problems Surgical History Surgery Date Site/Laterality Comments LEG SURGERY SECTION Medical History Medical History Date Comments Diabetes mellitus Family History Medical History Relation Name Comments Hypertension Father Relation Name Status Comments Father Social History Tobacco Use Types Packs/Day Years Used Date Smoking Tobacco: Never Smokeless Tobacco: Never Tobacco Cessation:Counseling Given: Not Answered Personal Safety Answer Date Recorded Getting School Help Needed Not on file 04/11 Comments Unknown Sex and Gender Information Value Date Recorded Sex Assigned at Not on file Legal Sex Female 6:40 PM PASTEURIZER Gender Identity Not on file Sexual Orientation Not on file Last Filed Vital Signs Vital Sign Reading Time Taken Comments Blood Pressure 138/80 04/09/2022 2:10 PM PASTEURIZER Pulse 85 04/09/2022 2:10 PM PASTEURIZER Temperature - - Respiratory Rate - - Oxygen Saturation 96% 04/09/2022 2:10 PM PASTEURIZER Inhaled Oxygen Concentration - - Weight 92.1 kg (203 lb) 04/09/2022 2:10 PM PASTEURIZER Height 162.6 cm (5' 4) 04/09/2022 2:10 PM PASTEURIZER Body Mass Index 34.84 04/09/2022 2:10 PM PASTEURIZER Plan of Treatment Health Maintenance Due Date Last Done Comments Breast Cancer Screening-Mammogram 1950 Colon Cancer Screening-Colonoscopy 1950 Depression Screening 1952 Fall Risk Assessment 1950 Hepatitis C Screening 1952 Osteoporosis Screening-Bone Density Scan 1952 DTaP/Tdap/Td Vaccine (1 - Tdap) 09/17/1963 Hepatitis B Screening 1970 Well Visit 65+ 2017 Zoster Vaccine (2 of 2) 05/14/2021 03/19/2021 Pneumococcal vaccine 65+ (2 of 2 - PCV20 or PCV21) 03/19/2022 03/19/2021, 03/03/2018 Covid-19 Vaccine (5 - 2024-2 6 season) 2024 01/10/2022, 08/05/2021, 02/25/2021, Additional history exists Influenza Vaccine (#1) 2024 , 12/30/2020, 03/03/2017, Additional history exists Insurance MEDICARE COMMERCIAL GENERIC Care Teams Pay Station Attendant Relationship Specialty Start Date End Date Christina Colvin MD PCP - General Family Medicine 04/09/22
--- OUTSIDE RECORDS SUMMARY | 2025-02-23 02:08 | XMS_ITS | Clinical Summary ---
Author Organization [facility] Address [address] [place] [address] Care Team Providers Care Pharmacy Operations Coordinator Name Role Phone Christina Colvin MD Primary Care Provider [phone] Encounters Date Type Department Care Team Description 02/07/2025 5:54 PM WEATHERIZATION FIELD TECHNICIAN - 02/07/2025 11:59 PM WEATHERIZATION FIELD TECHNICIAN Hospital Encounter [facility] [address] [address] Dione Espinoza MD Discharge Disposition: Home or Self Care (Routine Discharge) 02/07/2025 Travel from Last 3 Months Social History Tobacco Use Types Packs/Day Years Used Date Smoking Tobacco: Never Assessed Comments Unknown Sex and Gender Information Value Date Recorded Sex Assigned at Female 01/06/2025 8:19 AM CDT Legal Sex Female 8:19 AM CDT Gender Identity Female 02/07/2025 7:58 AM WEATHERIZATION FIELD TECHNICIAN Sexual Orientation Not on file Plan of Treatment Health Maintenance Due Date Last Done Comments Colorectal Cancer Screening Colonoscopy (10 Years) 1952 Hepatitis C 1970 DTaP, Tdap and Td Vaccines ( 1 - Tdap) 09/17/1971 Mammogram Screening 1992 Pneumococcal Vaccine: 50+ Ye ars (1 of 1 - PCV) 2002 Zoster Vaccines (1 of 2) 2002 Annual Medicare Wellness Visit 2017 Dexa Scan (General) 2017 COVID-19 Vaccine ( - 2024-2 6 season) 2024 Influenza Adult (#1) 2025 RSV Immunization or 60+ Years (1 - 1-dose 75+ series) 09/17/2027 Hepatitis A Vaccines Aged Out No long er eligible based on patient's age to complete this topic Meningococcal B Vaccine Aged Out No l onger eligible based on patient's age to complete this topic Meningococcal Vaccine Aged Out No se bette eligible based on patient's age to complete this topic RSV Immunizations Under 20 Months Aged Out No longer eligible based on patient's age to complete this topic Procedures Procedure Name Priority Date/Time Associated Diagnosis Comments CT ABD WO CON Routine 02/07/2025 6:42 PM WEATHERIZATION FIELD TECHNICIAN Disorder of adrenal gland, unspecified (HHS/HCC) from Last 3 Months Results * CT ABD WO CON (02/07/2025 6:42 PM WEATHERIZATION FIELD TECHNICIAN) Anatomical Region Laterality Modality Abdomen Computed Tomogra phy 02/13/2025 3:15 PM WEATHERIZATION FIELD TECHNICIAN Impressions 02/13/2025 4:25 PM WEATHERIZATION FIELD TECHNICIAN IMPRESSION: 1. No adrenal mass. 2. Coronary artery disease. 3. Serpiginous calcifications in the periportal region of the liver, of uncertain etiology and incompletely characterized without IV contrast. If no outside comparison imaging is available consider further assessment with a multiphase contrast- enhanced liver protocol CT exam. 4. Multiple water density renal lesions which are likely benign renal cysts and require no additional imaging follow-up. 5. Small hiatal hernia. The attending radiologist has reviewed the image(s) and agrees with the content of this report. Ordered By: DIONE ESPINOZA Interpreted By: David Anderson MD, 02/13/2025 3:15 PM Narrative 02/13/2025 4:25 PM WEATHERIZATION FIELD TECHNICIAN [facility] [address] [place], [place] [address] EXAMINATION: CT Abdomen without contrast CLINICAL HISTORY: Unspecified disorder of adrenal gland. COMPARISON: None. TECHNIQUE: Axial computed tomography of the abdomen was performed without contrast. Sagittal and coronal reformatted images were obtained. A dose lowering technique was used for this procedure, which may include, but is not limited to, this reduction technique, automated exposure control, the use of degenerative reconstruction, and a ALARA (as low as reasonably achievable)/image gently techniques. FINDINGS: VISUALIZED LOWER THORAX: The included lung bases are clear. There are coronary artery calcifications. There are calcifications of the included thoracic aorta. HEPATOBILIARY: The liver is normal in size and contour. There are serpiginous calcifications in the periportal region of uncertain etiology and incompletely characterized without IV contrast. There is no biliary ductal dilatation. The gallbladder is unremarkable. PANCREAS: The pancreas is poorly evaluated without intravenous contrast. No peripancreatic inflammatory stranding or fluid collection. SPLEEN: The spleen is normal in size there is a calcified splenic granuloma. ADRENAL GLANDS: There is no adrenal mass. GENITOURINARY: There are multiple water density renal lesion bilaterally, incompletely characterized but most likely benign renal cysts. These do not require additional imaging follow-up. No hydronephrosis. No nephrolithiasis.Included proximal ureters are unremarkable. GASTROINTESTINAL: Included bowel is normal in caliber.The appendix is not definitively visualized. There is a small hiatal hernia. The stomach is otherwise grossly unremarkable. VASCULATURE: The abdominal aorta is normal in caliber. There are moderate to severe atherosclerotic calcifications of the abdominal aorta. LYMPH NODES: No lymphadenopathy within the included portions of the abdomen. PERITONEUM: No included intraperitoneal ascites or free air MUSCULOSKELETAL: There are old left rib fractures. No aggressive osseous lesion. Procedure Note Ender Gee MD - 02/13/[address] [address] EXAMINATION: CT Abdomen without contrast CLINICAL HISTORY: Unspecified disorder of adrenal gland. COMPARISON: None. TECHNIQUE: Axial computed tomography of the abdomen was performed withoutcontrast. Sagittal and coronal reformatted images were obtained. A doselowering technique was used for this procedure, which may include, but isnot limited to, this reduction technique, automated exposure control, theuse of degenerative reconstruction, and a ALARA (as low as reasonablyachievable)/image gently techniques. FINDINGS: VISUALIZED LOWER THORAX: The included lung bases are clear. There are coronary arterycalcifications. There are calcifications of the included thoracic aorta. HEPATOBILIARY: The liver is normal in size and contour. There are serpiginouscalcifications in the periportal region of uncertain etiology andincompletely characterized without IV contrast. There is no biliary ductaldilatation. The gallbladder is unremarkable. PANCREAS: The pancreas is poorly evaluated without intravenous contrast. Noperipancreatic inflammatory stranding or fluid collection. SPLEEN: The spleen is normal in size there is a calcified splenic granuloma. ADRENAL GLANDS: There is no adrenal mass. GENITOURINARY: There are multiple water density renal lesion bilaterally, incompletelycharacterized but most likely benign renal cysts. These do not requireadditional imaging follow-up. No hydronephrosis. Nonephrolithiasis.Included proximal ureters are unremarkable. GASTROINTESTINAL: Included bowel is normal in caliber.The appendix is not definitivelyvisualized. There is a small hiatal hernia. The stomach is otherwisegrossly unremarkable. VASCULATURE: The abdominal aorta is normal in caliber. There are moderate to severeatherosclerotic calcifications of the abdominal aorta. LYMPH NODES: No lymphadenopathy within the included portions of the abdomen. PERITONEUM: No included intraperitoneal ascites or free air MUSCULOSKELETAL: There are old left rib fractures. No aggressive osseous lesion. IMPRESSION: 1. No adrenal mass. 2. Coronary artery disease. 3. Serpiginous calcifications in the periportal region of the liver, ofuncertain etiology and incompletely characterized without IV contrast. Ifno outside comparison imaging is available consider further assessmentwith a multiphase contrast- enhanced liver protocol CT exam. 4. Multiple water density renal lesions which are likely benign renalcysts and require no additional imaging follow-up. 5. Small hiatal hernia. The attending radiologist has reviewed the image(s) and agrees with thecontent of this report. Ordered By: DIONE ESPINOZA Interpreted By: David Anderson MD, 02/13/2025 3:15 PM us Dione Espinoza MD CT Final Result from Last 3 Months Insurance MEDICARE GENERIC - COMMERCIAL Care Teams Pharmacy Operations Coordinator Relationship Specialty Start Date End Date Christina Colvin MD [address] [place] [address] PCP - General FAMILY PRACTICE 02/07/25
--- OUTSIDE RECORDS SUMMARY | 2025-02-23 02:08 | XMS_ITS | Clinical Summary ---
Author Organization [facility] Address [address] [place] [address] Care Team Providers Care Overlock Sleeve Setter Name Role Phone Christina Colvin MD Primary Care Provider [phone] Rudi Shukla MD Unavailable [phone] Source Comments [facility],non-owned Affiliates and Associated Physician Practices is amultiple site organization consisting of ambulatory clinics and hospital sitesin [place], [place], [place] and [place]. This disclosure is being madepursuant to the Care Everywhere program and may not contain all information available regarding this patient. Last updated 17.[facility] Allergies No known active allergies Medications * Be aware that medications may not be up to date on this document. Alwaysverify current medications with the patient. escitalopram (LEXAPRO) 20 MG tablet Take 20 mg by mouth once daily Active metFORMIN ER 24hr (GLUCOPHAGE XR) 500 MG tablet Take 500 mg by mouth daily with dinner Active pravastatin (PRAVACHOL) 40 MG tablet Take 40 mg by mouth at bedtime Active ramipril (ALTACE) 2.5 MG capsule Take 2.5 mg by mouth once daily Active Zolpidem Tartrate (ZOLPIDEM PO) Take 1 tablet by mouth once daily Active mirtazapine (REMERON) 15 MG tablet Take 15 mg by mouth at bedtime Active Ergocalciferol (VITAMIN D2 PO) Take 1 tablet by mouth once daily Active Active Problems Problem Noted Date Diagnosed Date Primary osteoarthritis of right knee 05/30/2019 Social History Tobacco Use Types Packs/Day Years Used Date Smoking Tobacco: Never Smokeless Tobacco: Never Comments Unknown Sex and Gender Information Value Date Recorded Sex Assigned at Not on file Legal Sex Female 6:11 AM PRODUCTION GRIP Gender Identity Not on file Sexual Orientation Not on file Last Filed Vital Signs Vital Sign Reading Time Taken Comments Blood Pressure - - Pulse - - Temperature - - Respiratory Rate - - Oxygen Saturation - - Inhaled Oxygen Concentration - - Weight 97.5 kg (215 lb) 05/30/2019 4:15 PM PRODUCTION GRIP Height 162.6 cm (5' 4) 05/30/2019 4:15 PM PRODUCTION GRIP Body Mass Index 36.9 05/30/2019 4:15 PM PRODUCTION GRIP Plan of Treatment Health Maintenance Due Date Last Done Comments BONE DENSITY TESTING 1950 COLOGUARD (AGES 45-75) - COL ON CA SCREENING 1952 COLON MONITORING 1952 COLONOSCOPY - COLON CA SCREENING 1952 CT COLONOGRAPHY - COLON CA SCREENING 1950 Colorectal Cancer Screening 1952 FIT - COLON CA SCREENING 1952 FLEX SIG - COLON CA SCREENING 1952 MAMMOGRAM 1952 HEPATITIS C SCREENING 09/12/1970 DTAP/TDAP/TD VACCINES (1 - Tdap) 09/17/1971 PNEUMOCOCCAL VACCINE 50+ (1 of 1 - PCV) 2002 ZOSTER VACCINE (1 of 2) 2002 SCREENING FOR DIABETES 05/30/2019 DEPRESSION SCREENING 04/06/2024 COVID-19 VACCINE (1 - 2024-2 6 season) 2024 INFLUENZA VACCINE (#1) 2024 Respiratory Syncytial Virus (RSV) Vaccine Pt: or over 60 yrs (1 - 1-dose 75+ series) 09/17/2027 HEPATITIS B VACCINE Aged Out No longe r eligible based on patient's age to complete this topic HIB VACCINE Aged Out No longer eligi ble based on patient's age to complete this topic HPV VACCINE Aged Out No longer eligi ble based on patient's age to complete this topic MENINGOCOCCAL (Group B) VACC INE SHARED DECISION-MAKING Aged Out No longer eligibl e based on patient's age to complete this topic MENINGOCOCCAL GROUPS A/C/Y/W VACCINE Aged Out No longer eligible b ased on patient's age to complete this topic Insurance [facility] Care Teams Overlock Sleeve Setter Relationship Specialty Start Date End Date Christina Colvin MD [address] [place] [address] PCP - General Family Medicine 04/13/19 [place] [id number] [facility] [address] [place] [id number] Orthopedic Surgery 05/30/19
--- OUTSIDE RECORDS SUMMARY | 2025-02-23 02:08 | XMS_ITS | Patient Health Record ---
Author Organization [facility] Address [address] [place] [address] Care Team Providers Care [employer] Professor Name Role Phone Dione Kaye Unavailable [phone] Allergies Allergen (clinical drug ingredient) Drug/Non Drug Allergy documented on EMR Reaction Allergy Type Onset Date Status penicillin V Penicillin V Potassium Unknown Drug Allergy Active sulfamethoxazole / trimethoprim Sulfamethoxazole-Tr imethoprim Unknown Drug Allergy Active Results Component Value Reference Range Flag Notes CORTISOL, TOTAL (367) Reviewed date:12/06/2024 07:20:51 PM Interpretation: Performing Lab:FL[facility]-[id number] Savita Young, IgwaomJC[address] Tunde Carpio MD Notes/Report: FASTING:YES COLLECTION KIT GIVEN TO PATIENT. PATIENT ADVISED TO RETURN. FASTING: YES CORTISOL, TOTAL 1.4 L made in November 2024 by the reagent dowel sticker operator. * Please interpret above results accordingly * Reference Range: For 8 a.m.(7-9 a.m.) Specimen: 4.0-22.0 relative to results previously obtained with this method due to a recent quality improvement The Cortisol result may be decreased on average 10-20% Reference Range: For 4 p.m.(3-5 p.m.) Specimen: 3.0-17.0 DEXAMETHASONE ([id number]) Reviewed date:12/11/2024 02:22:55 PM Interpretation: Performing Lab:AL[facility]/[place] [place] [address] [facility] RamírezAybbzlbzhbQT[address] Aure Davila MD,PhD,KT Notes/Report: FASTING:YES COLLECTION KIT GIVEN TO PATIENT. PATIENT ADVISED TO RETURN. FASTING: YES DEXAMETHASONE 238 Baseline: Less than 20 ng/dL This test was developed and its analytical performance Reference Ranges for Dexamethasone: 1 mg dexamethasone overnight: 180-550 ng/dL (8:00-10:00 AM) has been validated pursuant to the CLIA regulations and is used for clinical purposes. characteristics have been determined by [facility]. It has not been cleared or approved by the FDA. This assay CORTISOL, TOTAL (367) Reviewed date:12/24/2024 09:27:38 PM Interpretation: Performing Lab:Selvin [facility]-[id number] Savita Serrano, [id number] Tunde Carpio MD Notes/Report: FASTING: YES FASTING:YES CORTISOL, TOTAL 1.1 L relative to results previously obtained with this The Cortisol result may be decreased on average 10-20% made in November 2024 by the reagent dowel sticker operator. method due to a recent quality improvement Reference Range: For 8 a.m.(7-9 a.m.) Specimen: 4.0-22.0 Reference Range: For 4 p.m.(3-5 p.m.) Specimen: 3.0-17.0 * Please interpret above results accordingly * DEXAMETHASONE ([id number]) Reviewed date:01/04/2025 02:59:46 PM Interpretation: Performing Lab:[facility] [facility] Aure Davila MD,PhD,KT Notes/Report: FASTING: YES FASTING:YES DEXAMETHASONE 198 This test was developed and its analytical performance 1 mg dexamethasone overnight: 180-550 ng/dL (8:00-10:00 AM) Baseline: Less than 20 ng/dL characteristics have been determined by [facility]. has been validated pursuant to the CLIA regulations and is used for clinical purposes. It has not been cleared or approved by the FDA. This assay Reference Ranges for Dexamethasone: CORTISOL, FREE, 24 HOUR URIN E ([id number]) Reviewed date:08/25/2024 11:00:58 PM Interpretation: Performing Lab:[facility] [facility] Aure Davila MD,PhD,KT Notes/Report: URINE VOLUME: 2000/NG COLLECTION KIT GIVEN TO PATIENT. PATIENT ADVISED TO RETURN. TOTAL VOLUME 2000 CORTISOL, FREE, URINE 32.8 4.0-50.0 mcg/24 h CORTISOL, FREE, URINE 30.9 ADULTS: 3.1-42.3 Reference Range: CREATININE, URINE 1.06 0.50-2.15 g/24 h used for clinical purposes. characteristics have been determined by [facility]. This test was developed and its analytical performance It has not been cleared or approved by the FDA. This assay has been validated pursuant to the CLIA regulations and is COMP. METABOLIC Reviewed date:10/31/2024 08:08:31 AM Interpretation: [...] CHOLESTEROL 75 50 mg/dL CHOL/HDL RATIO 2.65 T4, FREE Reviewed date:10/31/2024 08:07:56 AM Interpretation: Performing Lab: Notes/Report: T4, FREE 0.77 0.8-1.8 ng/dL L T3, FREE Reviewed date:10/31/2024 08:08:03 AM Interpretation: Performing Lab: Notes/Report: T3, FREE 3.77 2.3-4.2 pg/mL TSH Reviewed date:10/31/2024 02:43:03 PM Interpretation: Performing Lab: Notes/Report: TSH 3.987 0.40-4.50 mIU/L A1c% Reviewed date:10/31/2024 08:08:11 AM Interpretation: Performing Lab: Notes/Report: HEMOGLOBIN A1c % 6.70 4.5-6.3 % H CORTISOL, LC/MS, SALIVA, 2 S AMPLES ([id number]) Reviewed date:01/02/2025 08:32:02 AM Interpretation: Performing Lab:Selvin THOMSNO/Jada [facility],[address] Ran[facility] Aure Davila MD,PhD,KT Notes/Report: SPLIT 11/30/2024 FROM [id number] DRAW DATE 1 12/20/2024 DRAW TIME 1 8:00 PM CORTISOL, SALIVA SAMPLE 1 0.09 It has not been cleared or approved by the FDA. This assay 8-10 AM: 0.04-0.56 mcg/dL characteristics have been determined by [facility]. used for clinical purposes. 10 PM-1 AM: < OR = 0.09 mcg/dL 4-6 PM: < OR = 0.15 mcg/dL has been validated pursuant to the CLIA regulations and is This test was developed and its analytical performance noon-2 PM: < OR = 0.21 mcg/dL DRAW DATE 2 12/21/2024 DRAW TIME 2 8:00 PM CORTISOL, SALIVA SAMPLE 2 0.10 used for clinical purposes. It has not been cleared or approved by the FDA. This assay has been validated pursuant to the CLIA regulations and is noon-2 PM: < OR = 0.21 mcg/dL This test was developed and its analytical performance 4-6 PM: < OR = 0.15 mcg/dL 8-10 AM: 0.04-0.56 mcg/dL characteristics have been determined by [facility]. 10 PM-1 AM: < OR = 0.09 mcg/dL INSULIN (561) Reviewed date:10/31/2024 08:07:47 AM Interpretation: Performing Lab:Selvin [facility]-[id number] Savita Serrano, YpyhbaRS[address] Tunde Carpio MD Notes/Report: FASTING: UNKNOWN FASTING:UNKNOWN INSULIN 13.9 N Moderate NA Adult cardiovascular event risk category studies performed at [facility] are based on Insulin Reference Interval Risk: Reference Range < or = 18.4 High >18.4 Optimal < or = 18.4 cut points (optimal, moderate, high) in 2021. CORTISOL, TOTAL (367) Reviewed date:08/21/2024 02:22:51 PM Interpretation: Performing Lab:Selvin [facility]-[id number] Savita [facility], XjojvgQJ[address] Tunde Carpio MD Notes/Report: FASTING: NO FASTING:NO CORTISOL, TOTAL 1.4 L Reference Range: For 4 p.m.(3-5 p.m.) Specimen: 3.0-17.0 * Please interpret above results accordingly * Reference Range: For 8 a.m.(7-9 a.m.) Specimen: 4.0-22.0 DEXAMETHASONE ([id number]) Reviewed date:09/01/2024 11:06:00 PM Interpretation: Performing Lab:Selvin THOMSON/[facility],[address] [facility] Aure Davila MD,PhD,KT Notes/Report: FASTING: NO FASTING:NO DEXAMETHASONE 436 This test was developed and its analytical performance It has not been cleared or approved by the FDA. This assay characteristics have been determined by [facility]. Reference Ranges for Dexamethasone: has been validated pursuant to the CLIA regulations and is 1 mg dexamethasone overnight: 180-550 ng/dL (8:00-10:00 AM) used for clinical purposes. Baseline: Less than 20 ng/dL CORTISOL, LC/MS, SALIVA, 2 S AMPLES ([id number]) Reviewed date:09/04/2024 10:11:51 AM Interpretation: Performing Lab:Selvin [facility]OMSON[facility] [facility] Aure Davila MD,PhD,KT Notes/Report: SPLIT 08/16/2024 FROM [id number] DRAW DATE 1 08/20/2024 DRAW TIME 1 1200AM CORTISOL, SALIVA SAMPLE 1 0.10 has been validated pursuant to the CLIA regulations and is 4-6 PM: < OR = 0.15 mcg/dL It has not been cleared or approved by the FDA. This assay characteristics have been determined by [facility]. used for clinical purposes. noon-2 PM: < OR = 0.21 mcg/dL 10 PM-1 AM: < OR = 0.09 mcg/dL This test was developed and its analytical performance 8-10 AM: 0.04-0.56 mcg/dL DRAW DATE 2 08/21/2021 DRAW TIME 2 1200AM CORTISOL, SALIVA SAMPLE 2 0.10 4-6 PM: < OR = 0.15 mcg/dL This test was developed and its analytical performance used for clinical purposes. noon-2 PM: < OR = 0.21 mcg/dL It has not been cleared or approved by the FDA. This assay characteristics have been determined by [facility]. 10 PM-1 AM: < OR = 0.09 mcg/dL has been validated pursuant to the CLIA regulations and is 8-10 AM: 0.04-0.56 mcg/dL CORTISOL, FREE, 24 HOUR URIN E ([id number]) Reviewed date:12/20/2024 07:58:37 PM Interpretation: Performing Lab:EZ, [facility] [place],[address] Ran[facility]it [facility] uAre Davila MD,PhD,KT Notes/Report: URINE VOLUME: 1000/24 TOTAL VOLUME 1000 CORTISOL, FREE, URINE 12.3 4.0-50.0 mcg/24 h CORTISOL, FREE, URINE 11.8 Reference Range: ADULTS: 3.1-42.3 CREATININE, URINE 1.04 0.50-2.15 g/24 h It has not been cleared or approved by the FDA. This assay characteristics have been determined by [facility]. This test was developed and its analytical performance has been validated pursuant to the CLIA regulations and is used for clinical purposes. CBC + AutoDiff 5 Reviewed date:10/31/2024 08:08:39 [...] % H NEUTROPHILS # 5.97 2.03-7.67 10^3/uL Reason For Referral No Information Medications Medication SIG (Take, Route, Frequency, Duration) Notes Start Date End Date Status Ozempic (1 MG/DOSE) 4 MG/3ML Solution Pen-injector 1 mg Subcutaneous once a week Active metFORMIN HCl 500 MG Tablet TAKE 1 TABLET BY MOUTH TWICE DAILY Once a day; Duration: 30 days Active Lisinopril 20 MG Tablet 1 tab(s) orally once a day Active dexAMETHasone 1 MG Tablet 1 tablet at 10PM before 9AM lab draw Orally once; Duration: 1 days 02/25/2024 Active Vitamin B-1 *Pick strength-form from [employer] for eRX* Active Propranolol HCl 10 MG Tablet TAKE 1 TABLET BY MOUTH EVERY 12 HOURS ON AN EMPTY STOMACH; Duration: 90 Active Atorvastatin Calcium 20 MG Tablet 1 tab(s) orally once a day Active metFORMIN HCl ER 500 MG Tablet Extended Release 24 Hour 1 tablet Orally twice daily with meals; Duration: 30 days 02/25/2024 Active Ozempic (0.25 or 0.5 MG/DOSE) 2 MG/3ML Solution Pen-injector 0.5 mg Subcutaneous once a week; Duration: 90 days 10/31/2024 Active Vitamin D (Ergocalciferol) 1.25 MG (73226 UT) Capsule 1 cap(s) orally once a week Active Unithroid 50 MCG Tablet 1 tablet in the morning on an empty stomach Orally Once a day; Duration: 90 days 10/31/2024 Active dexAMETHasone 1 MG Tablet 1 tablet Orally at 10 pm night before 8 am cortisol; Duration: 1 days 10/27/2024 Active Ozempic (0.25 or 0.5 MG/DOSE) 2 MG/3ML Solution Pen-injector as directed subcutaneously once a week Active Mirtazapine 15 MG Tablet 1 tab(s) orally once a day (at bedtime) Active Escitalopram Oxalate 20 MG Tablet 1 tab(s) orally once a day Active Fish Oil 1200 MG Capsule 1 cap(s) orally 3 times a day Active Dexcom G7 Sensor - Miscellaneous change sensor every 10 days; Duration: 90 days 02/25/2024 Active Social History Social History Additional Details Category Social Info Options Details Migrated Social History Migrated Social History (Alcohol:):no (Recreational drug use:):no (Smoking:):no Problems Problem Type SNOMED Code ICD Code Onset Dates Problem Status W/U Status Risk Notes Problem Hyperglycemia due to type 2 diabetes mellitus (543162847266979) Type 2 diabetes mellitus with hyperglycemia (E11.65) Active confirmed Problem 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, 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 confirmed Problem Vitamin D deficiency (15618922) Vitamin D deficiency, unspecified (E55.9) Active confirmed Problem Obesity (399352857) Obesity, unspecified (E66.9) Active confirmed Problem Mixed hyperlipidemia (251787534) Mixed hyperlipidemia (E78.2) Active confirmed Problem Essential tremor (172418264) Essential tremor (G25.0) Active confirmed Problem Essential hypertension (47328341) Essential (primary) hypertension (I10) Active confirmed Problem Dyslipidemia (144641686) Dyslipidemia (E78.5) Active confirmed Vital Signs Heart Rate 96 /min 02/20/2025 Height-cm 162.56 cm 02/20/2025 Oximetry 98 % 02/20/2025 Blood pressure diastolic 73 mm Hg 02/20/2025 Weight-kg 90.9 kg 02/20/2025 Height 64 in 02/20/2025 Blood pressure systolic 142 mm Hg 02/20/2025 Weight 200.4 lbs 02/20/2025 BMI 34.39 kg/m2 02/20/2025 Encounters Encounter Location Date Provider Diagnosis Dr. Sergo Parham [facility] [address] [place] [address] 10/27/2024 Dione Kaye Mixed hyperlipidemia E78.2 ; Abnormal glucose R73.09 and Fatigue R53.[address] Kaye [address] [place] [address] 02/25/2024 Dione Kaye Type 2 diabetes keysha itus with hyperglycemia E11.65 ; Hyperlipidemia, unspecified E78.5 ; Essential (primary) hypertension I10 ; Vitamin D deficiency, unspecified E55.9 ; Essential tremor G25.0 and Obesity, unspecified E66.[address] Kaye [address] [place] [address] 10/27/2024 Dione Kaye Type 2 diabetes keysha itus with hyperglycemia E11.65 ; Obesity, unspecified E66.9 ; Essential (primary) hypertension I10 ; Dyslipidemia E78.5 ; Hyperlipidemia, unspecified E78.5 ; Disorder of adrenal gland, unspecified E27.9 and Dietary counseling and surveillance Z71.[address] Kaye [address] [place] [address] 02/20/2025 Dione Kaye Type 2 diabetes keysha itus with hyperglycemia E11.65 ; Dyslipidemia E78.5 ; Mixed hyperlipidemia E78.2 ; Obesity, unspecified E66.9 ; Calcification of liver K76.89 and Dietary counseling and surveillance Z71.[address] Kaye [address] [place] [address] 02/25/2024 Dione PIERRE [address] [address] 05/26/2024 Dione Kaye [address] [place] [address] 08/17/2024 Dione Kaye [address] [place] [address] 08/18/2024 Dione Kaye [address] [place] [phone] 09/26/[address] Wood [address] [place], [place] [id number] 10/31/2024 Dione Kaye Type 2 diabetes keysha itus with hyperglycemia [place]11[place] [address] 10/31/2024 Dione Kaye Type 2 diabetes keysha itus with hyperglycemia E11.[address] Kaye [address] [place], [place] [id number] 11/02/2024 [place] [address] 11/07/[address] Kaye [address] [place] [address] 11/14/[address] Kaye [address] [place] [address] 12/06/[address] Kaye [address] [place], [place] [phone] 12/06/2024 Dione Kaye Type 2 diabetes keysha itus with hyperglycemia E11.[address] Kaye [address] [place], [place] [id number] 12/08/2024 Dione Kaye Type 2 diabetes keysha itus with hyperglycemia E11.[address] Kaye [address] [place], [place] [phone] 12/08/2024 Dione Kaye Type 2 diabetes keysha itus with hyperglycemia E11.[address] Kaye [address] [place], [place] [phone] 01/02/2025 Dione Kaye AMMO [address] [address] 01/04/2025 Dione Kaye [address] [place], [place] [phone] 02/13/2025 Dione Kaye Assessments Encounter Date Diagnosis (ICD Code) Assessment Notes Treatment Notes Treatment Clinical Notes Section Notes 02/25/2024 Type 2 diabetes mellitus with hyperglycemia (ICD-10 - E11.65) 02/25/2024 Hyperlipidemia, unspecified (ICD9-CM - E78.5) 10/27/2024 Type 2 diabetes mellitus with hyperglycemia (ICD-10 - E11.65) 10/27/2024 Obesity, unspecified (ICD-10 - E66.9) 10/31/2024 Type 2 diabetes mellitus with hyperglycemia (ICD-10 - E11.65) 10/31/2024 Type 2 diabetes mellitus with hyperglycemia (ICD-10 - E11.65) 12/06/2024 Type 2 diabetes mellitus with hyperglycemia (ICD-10 - E11.65) 12/08/2024 Type 2 diabetes mellitus with hyperglycemia (ICD-10 - E11.65) 12/08/2024 Type 2 diabetes mellitus with hyperglycemia (ICD-10 - E11.65) 02/20/2025 Type 2 diabetes mellitus with hyperglycemia (ICD-10 - E11.65) 10/27/2024 Mixed hyperlipidemia (ICD-10 - E78.2) 10/27/2024 Abnormal glucose (ICD-10 - R73.09) 02/20/2025 Dyslipidemia (ICD-10 - E78.5) 10/27/2024 Fatigue (ICD-10 - R53.83) 02/20/2025 Mixed hyperlipidemia (ICD-10 - E78.2) 10/27/2024 Essential (primary) hypertension (ICD-10 - I10) 02/25/2024 Essential (primary) hypertension (ICD-10 - I10) 02/25/2024 Vitamin D deficiency, unspecified (ICD-10 - E55.9) 10/27/2024 Dyslipidemia (ICD-10 - E78.5) 02/20/2025 Obesity, unspecified (ICD-10 - E66.9) 02/20/2025 Calcification of liver (ICD-10 - K76.89) 10/27/2024 Hyperlipidemia, unspecified (ICD9-CM - E78.5) 02/25/2024 Essential tremor (ICD-10 - G25.0) 02/25/2024 Obesity, unspecified (ICD-10 - E66.9) 10/27/2024 Disorder of adrenal gland, unspecified (ICD-10 - E27.9) 02/20/2025 Dietary counseling and surveillance (ICD-10 - Z71.3) Spent 15 minutes preventative counseling patient on dietary recommendations and changes in setting of hyperglycemia- need to restrict refined sugars and processed foods and incorporate up to 150 minutes of moderate level activity weekly. 10/27/2024 Dietary counseling and surveillance (ICD-10 - Z71.3) Spent 15 minutes preventative counseling patient on dietary recommendations and changes in setting of hyperglycemia- need to restrict refined sugars and processed foods and incorporate up to 150 minutes of moderate level activity weekly. 02/25/2024 Other Assessment and Plan: 1. Elevated ACTH levels: - Plan: Perform a 24-hour urine test to check cortisol levels, two saliva tests between 11 p.m. and midnight on two different nights, and a dexamethasone suppression test to investigate the high ACTH levels and potential cortisol issues. 2. Insomnia and anxiety: - Plan: Monitor cortisol levels as they may be contributing to insomnia and anxiety. Continue current sleep medication as needed. 3. Depression: - Plan: Continue Lexapro for depression management. 4. Weight gain and diabetes management: - Plan: Continue Ozempic 0.5 mg once a week and Metformin for diabetes management. Investigate potential cortisol issues that may be affecting weight loss and blood sugar levels. 5. Elevated vitamin D levels: - Plan: Restart vitamin D supplementation with 2000 IU daily starting March 06. Switch to an thai-spj-egrviiz calcium and vitamin D combination with 2000 IU daily. Follow up on the specific type of vitamin D being taken (D2 or D3). 6. Tremors: - Plan: Continue Propranolol as needed for tremor control, with the option to take it up to twice a day if necessary. 7. Dexcom G7 prescription and insurance issues: - Plan: Attempt to send the prescription for the Dexcom G7 to [facility] to explore potential cost savings. Assist the patient in navigating insurance approval for the device. 8. Ozempic patient assistance program: - Plan: Provide the patient with the [employer] PDF file for the Ozempic patient assistance program and assist in the reapplication process. 9. Follow-up: - Plan: Schedule a follow-up appointment in six to eight weeks to review test results and discuss further management. If the dexamethasone suppression test comes back positive, proceed with an MRI of the pituitary gland. Spent 25 minutes preparing to see the patient (ex review of tests/chart), obtaining and / or reviewing separately obtained history, performing a medically appropriate examination and/or evaluation, counseling and educating the patient/family/career services manager, ordering medications, tests, or procedures, referring and communicating with other health cattle care worker, documenting clinical information in the electronic or other health record, independently interpreting results and communicating results to the patient/family/career services manager and care coordinating patient plan. Patient alert and oriented x 4 and aware of discussion noted above and in agreeance to plan in management of type 2 DM well controlled, hyperlipidemia, hypertension, essential tremor and workup for hypercortisolism in setting of elevated ACTH. 10/27/2024 Delfino Gao, a female patient with a history of depression, presents with concerns about recent weight gain of 20 pounds despite taking Ozempic, and reports occasional insomnia. Weight gainAssessment: Patient reports a 20-pound weight gain, currently weighing 193 pounds, up from a previous low of 172 pounds. This weight gain occurred despite being on Ozempic, which was previously effective for weight loss. Patient reports eating only once a day at times. Given the unexpected weight gain and lack of response to Ozempic, further investigation is warranted to rule out underlying causes such as hypercortisolism.Pl an:- Continue Ozempic at current dose (1 mg)- Continue metformin at current dose- Order non-contrast CT scan of adrenal glands to evaluate for enlargement or nodules - Patient to schedule at [facility] - Instruct patient to call if prior approval is needed- Repeat cortisol studies: - Salivary cortisol test on two separate nights between 11 PM and midnight - Dexamethasone suppression test: 1 mg dexamethasone at 10 PM, followed by blood work- Order fasting laboratory tests: - A1c - Lipid panel- Follow up in one month to review results and discuss potential cortisol-blocking medications if indicated Diabetes mellitusAssessment: Patient reports that blood glucose levels are stable. However, given the recent weight gain and potential for underlying endocrine issues, reassessment of glycemic control is necessary.Plan:- Continue current diabetes medications (Ozempic and metformin)- Order fasting A1c- Review results at follow-up appointment in one month DepressionAssessmen t: Patient reports taking mirtazapine for depression, which also helps with sleep. No acute concerns reported regarding mood or depression symptoms.Plan:- Continue mirtazapine at current dose InsomniaAssessment: Patient reports generally sleeping through the night with the help of mirtazapine. However, approximately once every 10 days, patient experiences a night of complete insomnia. This pattern of occasional severe insomnia may be related to underlying endocrine issues or stress.Plan:- Continue current sleep regimen with mirtazapine- Reassess sleep patterns after completion of endocrine workup Surgical scarsAssessment: Patient reports improvement in surgical scars, noting they are becoming merchant patroller and less raised.Plan:- Continue to monitor scar healing- Reassess at next visit Spent 25 minutes preparing to see the patient (ex review of tests/chart), obtaining and / or reviewing separately obtained history, performing a medically appropriate examination and/or evaluation, counseling and educating the patient/family/career services manager, ordering medications, tests, or procedures, referring and communicating with other health cattle care worker, documenting clinical information in the electronic or other health record, independently interpreting results and communicating results to the patient/family/career services manager and care coordinating patient plan. Patient alert and oriented x 4 and aware of discussion noted above and in agreeance to plan in management of type 2 DM, weight management, dyslipidemia, concern for hypercortisolism/co ncern for adrenal pathology and weight management. 02/20/2025 Delfino Gao is an endocrinology patient with well-controlled diabetes and recent imaging findings requiring further evaluation and cardiovascular risk assessment. Adrenal evaluation with normal CTAssessment: CT scan of adrenal glands shows normal appearance with no nodules, masses, or growths. Previous December cortisol test results were in stanton zone, not overtly positive, indicating inconclusive adrenal function testing.Plan:- Adrenal workup complete with normal CT findings- Monitor based on previous inconclusive cortisol results Renal cystsAssessment: CT scan revealed kidney cysts that are likely benign based on imaging characteristics.Shane n:- No further workup recommended for benign-appearing renal cysts Hepatic calcificationsAsses sment: CT scan showed liver calcifications requiring further characterization. Initial imaging did not show fatty liver but calcifications need better evaluation with contrast enhancement.Plan:- Order CT scan with IV contrast for better characterization of liver calcifications- If calcifications are benign, monitor with surveillance- If calcifications are concerning, consult manufacturing weaver Cardiovascular diseaseAssessment: CT imaging demonstrates cardiovascular disease with calcifications on the aorta and major vessels. Patient is currently taking atorvastatin for cholesterol management.Plan:- Referral to cardiology (Dr. Gabbie Langford in [place] recommended)- Continue atorvastatin- Basic labs including cholesterol panel after New Year Diabetes mellitusAssessment: A1C levels have been well-controlled and patient is taking medications as prescribed.Plan:- Continue current diabetes medications- Order A1C after New Year- Follow-up in approximately three months Anxiety and insomniaAssessment: Patient experiences anxiety and occasional insomnia with episodes of missing entire nights of sleep. Usually sleeps well once able to fall asleep. Currently taking medication prescribed by Dr. Melgar's office which is helpful.Plan:- Continue current insomnia medication prescribed by Dr. Melgar's office Spent 25 minutes preparing to see the patient (ex review of tests/chart), obtaining and / or reviewing separately obtained history, performing a medically appropriate examination and/or evaluation, counseling and educating the patient/family/career services manager, ordering medications, tests, or procedures, referring and communicating with other health cattle care worker, documenting clinical information in the electronic or other health record, independently interpreting results and communicating results to the patient/family/career services manager and care coordinating patient plan. Patient alert and oriented x 4 and aware of discussion noted above and in agreeance to plan in management of type 2 DM, dyslipidemia, calcifications of liver/need for CT abd with IV contrast, and concern for CAD. Plan Of Treatment Pending Test Test Name Order Date *CT ABDOMEN W/ CONTRAST 81820 02/20/2025 *CT ABDOMEN W/O CONTRAST 05182 Next Appt Details Provider Name:Dione Kaye, 03:40:00 PM, [address] [place] [address], [phone], Insurance Providers Payer Name Payer Address Payer Phone Subscriber Number Group Number Insured Name Patient Relationship to Insured Coverage Start Date Coverage End Date W[employer] Medicare part B [address] [place] [phone] [id number] Avni Liang Self - patient is the insured [facility] Medicare part B [address] [address] [place] [address] [id number] Avni Liang Self - patient is the insured Medical (General) History Medical History History ICD Code hypertension diabetes mallitus Surgical History Surgery Date(Month/Year) C- Section- 1993 Foot surgery x2 Knee replacements- 2022 Hospitalization History Reason Date(Month/Year) C- Section- 1993 Foot surgery x2 Knee replacements- 2022
[2025-02-23 12:22] VITALS: BP 113/72; PULSE 83; RESP 16; TEMP 36.4; O2SAT 97; BMI 34.9
[2025-02-23] MEDS: LACTATED RINGERS 1,000 ML 150 ML IV CONT (12:29)
--- NOTE | 2025-02-23 12:39 | WPDANESEPPF ---
Anes - Initial Pre Proc Eval Procedure: Operation Date: 02/23/25 13:30 Proposed Procedures p Screening Colonoscopy - Bowen Whitehead MD Date/Time: 02/23/25 12:39 Surgeon: Bowen Whitehead MD Pre Op Diagnosis: Encounter for screening for malignant neoplasm of Patient Data Age: 74 Gender: F Height: 1.6 m Weight: 89.3 kg Last Vital Signs Temp 36.4 C L 02/23/25 12:22 Pulse 83 02/23/25 12:22 Resp 16 02/23/25 12:22 BP 113/72 02/23/25 12:22 Pulse Ox 97 02/23/25 12:22 O2 Del Method Room Air 02/23/25 12:22 Allergies Allergy/AdvReac Type Severity Reaction Status Date / Time Penicillins Allergy Unknown unknown Verified 02/23/25 12:20 Sulfa (Sulfonamide Allergy Unknown unknown Verified 02/23/25 12:20 Antibiotics) iron AdvReac Severe Nausea and Verified 02/23/25 12:20 Vomiting Home Medications ?Medication ?Instructions ?Recorded ?Confirmed ?Type cyanocobalamin (vitamin B-12) 500 1,750 mcg PO BID 08/01/22 02/23/25 History mcg tablet cinnamon bark 500 mg capsule 500 mg PO DAILY 12/26/22 02/23/25 History (Cinnamon) omega 0-hmy-zxt-fish oil 1,200 mg 1 cap PO BID 12/26/22 02/23/25 History (144 mg-216 mg) capsule (Fish Oil) lisinopril 20 mg tablet 20 mg PO QAM #90 tabs 05/02/24 02/23/25 Rx cholecalciferol (vitamin D3) 125 125 mcg PO DAILY 07/06/24 02/23/25 History mcg (5,000 unit) capsule semaglutide 0.25 mg or 0.5 mg (2 1 mg subcut WEEKLY 07/06/24 02/23/25 History mg/1.5 mL) subcutaneous pen injector (Ozempic) mirtazapine 15 mg tablet 15 mg PO HS #90 tabs 11/06/24 02/23/25 Rx escitalopram oxalate 20 mg tablet 20 mg PO QAM #90 tabs 01/30/25 02/23/25 Rx atorvastatin 20 mg tablet 20 mg PO EVERY OTHER DAY #45 tabs 02/07/25 02/23/25 Rx metformin 500 mg tablet 500 mg PO BID 02/09/25 02/23/25 History propranolol 10 mg tablet 10 mg PO BID 02/09/25 02/23/25 History Laboratory Tests 02/23/25 12:30 POC Capillary Glucose 191 H mg/dl (65-105) Patient hx anesthesia problems: none Family hx anesthesia problems: none Results Review: All pre-operative results and documents have been reviewed as part of the pre-operative evaluation. [facility] Past Medical History Medical History Vision loss reading glasses Asthma Anxiety and depression Diabetes Arthritis Hypertension Surgical History Surgical History History of bilateral knee replacement Total knee replacement status H/O toe surgery bilateral hammer toes (2009) H/O section Family History Family History Other Carcinoma of colon Cerebrovascular accident Depression Family history of Alzheimer's disease Family history of alcoholism Family history of cardiovascular disease Family history of migraine headaches Social History Social History Smoking status: Never smoker Second hand tobacco smoke exposure: No Additional smoking assessment comments: DENIES ANY FORM OF TOBACCO USE Alcohol intake: never Substance use: current Substance use type: does not use Last use: 08/22/22 Do You Feel Safe in your Home?: Yes Lack of Transportation: No Lack of Food: Never True Current Housing: I Have Housing Concerned About Future Housing: No Difficulty Paying Gas/Electric Bills: No Difficulty Paying for Meds: No Currently Unemployed: No Education: Associate Degree Difficulty w/ Childcare or Family Care: No Living arrangements: with family Occupation/Education: occupation Additional occupation/education comments: [employer] Gender identity (if verbalized by the patient): Female Sexual Orientation (if Verbalized by the Patient): Straight or Heterosexual Spiritual care concerns: No Agree to blood products: Yes Anes - Eval Final PreProcedure Day of Procedure 02/23/25 12:39 Patient weight: obese Heart: regular rate and rhythm Lungs: normal air movement Airway: Mallampati scale class III Neurological: alert and oriented Last oral intake: >/= 8 hours ASA classification: III Emergent: no Anesthetic plan: proceed Anesthesia type and monitoring: general GIVS and standard monitoring Results Review: All pre-operative results and documents have been reviewed as part of the pre-operative evaluation. Informed Consent: The patient's anesthetic plan and its attendant risks and benefits were discussed with the patient/family/POA. Questions were solicited and answers provided to the satisfaction of the patient/family/POA.
--- NOTE | 2025-02-23 13:11 | PM.IMHP ---
H&P: HPI History of Present Illness Date/Time: 02/23/25 13:11 Chief Complaint: Screening colonoscopy Narrative: This is the patient's 3rd screening colonoscopy. There are no GI symptoms and there is no family history of colorectal cancer. Review of Systems Review of Systems: All systems reviewed & are unremarkable except as noted in HPI and below PMFSH Past Medical History Medical History Vision loss reading glasses Asthma Anxiety and depression Diabetes Arthritis Hypertension Surgical History Surgical History History of bilateral knee replacement Total knee replacement status H/O toe surgery bilateral hammer toes (2009) H/O section Family History Family History Other Carcinoma of colon Cerebrovascular accident Depression Family history of Alzheimer's disease Family history of alcoholism Family history of cardiovascular disease Family history of migraine headaches Social History Social History Smoking status: Never smoker Second hand tobacco smoke exposure: No Additional smoking assessment comments: DENIES ANY FORM OF TOBACCO USE Alcohol intake: never Substance use: current Substance use type: does not use Last use: 08/22/22 Do You Feel Safe in your Home?: Yes Lack of Transportation: No Lack of Food: Never True Current Housing: I Have Housing Concerned About Future Housing: No Difficulty Paying Gas/Electric Bills: No Difficulty Paying for Meds: No Currently Unemployed: No Education: Associate Degree Difficulty w/ Childcare or Family Care: No Living arrangements: with family Occupation/Education: occupation Additional occupation/education comments: [employer] Gender identity (if verbalized by the patient): Female Sexual Orientation (if Verbalized by the Patient): Straight or Heterosexual Spiritual care concerns: No Agree to blood products: Yes Meds Home Medications and Allergies Home Medications ?Medication ?Instructions ?Recorded ?Confirmed ?Type cyanocobalamin (vitamin B-12) 500 1,750 mcg PO BID 08/01/22 02/23/25 History mcg tablet cinnamon bark 500 mg capsule 500 mg PO DAILY 12/26/22 02/23/25 History (Cinnamon) omega 5-zdy-glq-fish oil 1,200 mg 1 cap PO BID 12/26/22 02/23/25 History (144 mg-216 mg) capsule (Fish Oil) lisinopril 20 mg tablet 20 mg PO QAM #90 tabs 05/02/24 02/23/25 Rx cholecalciferol (vitamin D3) 125 125 mcg PO DAILY 07/06/24 02/23/25 History mcg (5,000 unit) capsule semaglutide 0.25 mg or 0.5 mg (2 1 mg subcut WEEKLY 07/06/24 02/23/25 History mg/1.5 mL) subcutaneous pen injector (Ozempic) mirtazapine 15 mg tablet 15 mg PO HS #90 tabs 11/06/24 02/23/25 Rx escitalopram oxalate 20 mg tablet 20 mg PO QAM #90 tabs 01/30/25 02/23/25 Rx atorvastatin 20 mg tablet 20 mg PO EVERY OTHER DAY #45 tabs 02/07/25 02/23/25 Rx metformin 500 mg tablet 500 mg PO BID 02/09/25 02/23/25 History propranolol 10 mg tablet 10 mg PO BID 02/09/25 02/23/25 History Allergies Allergy/AdvReac Type Severity Reaction Status Date / Time Penicillins Allergy Unknown unknown Verified 02/23/25 12:20 Sulfa (Sulfonamide Allergy Unknown unknown Verified 02/23/25 12:20 Antibiotics) iron AdvReac Severe Nausea and Verified 02/23/25 12:20 Vomiting Vital Signs Vital Signs - 24 hr 02/23/25 12:22 Temperature 97.5 F L Pulse Rate 83 Respiratory Rate 16 Blood Pressure 113/72 Pulse Oximetry 97 Oxygen Delivery Room Air Exam Const: General: cooperative and healthy appearing Resp: Effort & Inspection: normal respiratory effort and able to speak in complete sentences Auscultation: clear to auscultation bilaterally Cardio: Rate: regular rate Rhythm: regular rhythm GI: Inspection: normal to inspection GI Palp: No No hepatosplenomegaly present Auscultation: normal bowel sounds Rectal Exam: deferred Skin: General skin exam: normal color Psych: Appearance: grossly normal Mental Status: mental status grossly normal Assessment and Plan Assessment and plan (1) Encounter for screening colonoscopy: Code(s): Z12.11 - Encounter for screening for malignant neoplasm of colon Status: Acute Assessment and Plan: The patient is deemed a good candidate for the procedure. Consent signed. Will proceed.
[2025-02-23 13:41] VITALS: BP 97/50; PULSE 71; RESP 16; O2SAT 94
[2025-02-23 13:51] VITALS: BP 101/64; PULSE 70; RESP 20; O2SAT 96
[2025-02-23 14:01] VITALS: BP 110/78; PULSE 68; RESP 18; O2SAT 97
== END 2025-02-23 14:18 | disposition home or self-care (01) ==
PROVIDERS: PCP Student in an Organized Health Care Education/Training Program; Referring Provider Student in an Organized Health Care Education/Training Program; Visit Provider Internal Medicine Gastroenterology
PROC: 0DJD8ZZ Inspection of Lower Intestinal Tract, Via Natural or Artificial Opening Endoscopic (ICD-10-PCS; CPT 45378; principal; 2025-02-23 13:30)
DX: Z12.11 Encounter for screening for malignant neoplasm of colon (principal); K57.30 Diverticulosis of large intestine without perforation or abscess without bleeding; I10 Essential (primary) hypertension; E11.9 Type 2 diabetes mellitus without complications; J45.909 Unspecified asthma, uncomplicated; F41.8 Other specified anxiety disorders; M19.90 Unspecified osteoarthritis, unspecified site; E66.9 Obesity, unspecified; Z68.34 Body mass index [BMI] 34.0-34.9, adult; Z79.85 Long-term (current) use of injectable non-insulin antidiabetic drugs; Z79.84 Long term (current) use of oral hypoglycemic drugs; Z98.890 Other specified postprocedural states; Z80.0 Family history of malignant neoplasm of digestive organs; Z82.49 Family history of ischemic heart disease and other diseases of the circulatory system
CPT/HCPCS: G0105; 82948; J2003; J2704; J7120